=== PATIENT | female | born 1960 | race African-American/Black ===

== ENCOUNTER 2022-11-12 16:53 | Emergency (ER) | payer OTHER ==
--- OUTSIDE RECORDS SUMMARY | 2022-11-12 17:03 | XMS REPORT | Continuity of Care Document ---
:1960 Author Organization [facility] t Address [address] [place] [address] Care Team Providers Name Role Phone ANNI YIN Primary Care Physician Unavailable RAQUEL MARIE Attending Clinician Unavailable Gen Stephen Attending Clinician Raquel Marie MD Attending Clinician Arvin Norris Attending Clinician Unavailable ESEQUIEL MOREIRA Attending Clinician Unavailable ELISE CARDENAS Attending Clinician Unavailable Elise Patten Attending Clinician JOSÉ ANTONIO GUTIERREZ Attending Clinician Unavailable LATANYA STARKS Attending Clinician Unavailable USMAN FRAZIER Attending Clinician Unavailable HALIE PADILLA Attending Clinician Unavailable NANCY MENDIOLA M.D. Attending Clinician Unavailable ANNI YIN M.D. Attending Clinician Unavailable TAN FAIR Attending Clinician Unavailable Keenan Harrison Attending Clinician Unavailable FAISAL MENESES Attending Clinician Unavailable BRADY CORBIN Attending Clinician Unavailable KEENAN RICKS Attending Clinician Unavailable LEFTY MO Attending Clinician Unavailable SAGAR MODI Attending Clinician Unavailable RAQUEL MARIE Admitting Clinician Unavailable Raquel Marie MD Admitting Clinician ELISE CARDENAS Admitting Clinician Unavailable ONI JOHNSON Admitting Clinician Unavailable DANY MORENO Admitting Clinician Unavail TE Dailey Admitting Clinician Unavailable MARIVEL IBANEZ Admitting Clinician Unavailable Payers Payer Name Policy Type Policy Number Effective Date Expiration Date S blank [employer] PPO [id number] 2017 2017 00:00:00 00:00:00 CIGNA II [id number] 2020 00:00:00 CIGNA OON [id number] 2021 00:00:00 CIGNA [id number] 2012 HMO/POS/OPEN 00:00:00 ACCESS Problems Condition Condition Condition Status Onset Resolution Last Treating Co mments Source Name Details Category Date Date Treatment Clinician Date Neuropathy Neuropathy Disease Active U nivers 8-23 ity of 00:00: [address] [facility] Obesity Obesity Disease Active Univers (BMI (BMI 8-22 ity of 30-39.9) 30-39.9) 00:00: [address] Difficulty Difficulty Disease Active U nivers with with 8-22 ity of speech speech 00:00: [address] TIA TIA Disease Active 2019-[address] [facility] (transient (transient 0-22 Cand[facility] kes ischemic ischemic 00:00: Medica l attack) attack) 00 Center Non-compac Non-compac Disease Recurre [facility] tion tion nce 3-09 [facility] cardiomyop cardiomyop 00:00: Me dical athy athy 00 Center Hypomagnes Hypomagnes Disease Active [facility] em[facility] emia 3 [facility] 00:[facility]: Medical 00 Center AICD AICD Disease Active [facility] discharge discharge 3 [facility] 00:00: Medical 00 Center Syncope, Syncope, Disease Active [facility] unspecifie unspecifie 307 [place] kes d syncope d syncope 00:00: Medi gokul type type 00 Center Acute Acute Disease Recurre [facility] ischemic ischemic nce 204 [facility] stroke stroke 00:00: Medical 00 Center Chronic Chronic Disease Recurre 2016-[address] [facility] combined combined nce 04-06 [facility] systolic systolic 00:00: Medica l and and 00 Center diastolic diastolic CHF CHF (congestiv (congestiv e heart e heart failure) failure) Paroxysmal Paroxysmal Disease Recurre 2016-[address] [facility] atrial atrial nce 04-06 [facility] fibrillati fibrillati 00:00: Me dical on on 00 Center Ventricula Ventricula Disease Recurre 2016-[address] [facility] r r nce 04-06 [facility] tachycardi tachycardi 00:00: Me dical a a Center Non-rheuma Non-rheuma Disease Recurre 2016-[address] tic mitral tic mitral nce 04-06 [facility] kes regurgitat regurgitat 00:00: Me dical ion ion 00 Center Thrombocyt Thrombocyt Disease Recurre 2016-[address] openia openia nce 03-24 [facility] 00:00: Medical 00 Center AICD AICD Disease Recurre [facility] (automatic (automatic nce 06-20 [facility] k[facility] cardiovert cardiovert 00:00: Me dical er/defibri er/defibri 00 Ce nter llator) llator) present present H/O H/O Disease Recurre [facility] laparoscop laparoscop nce 06-20 [facility] k[facility] ic ic 00:00: Medical adjustable adjustable 00 Ce nter gastric gastric banding banding Gastric Gastric Disease Recurre [facility] outflow outflow nce 06-20 [facility] obstructio obstructio 00:00: Me dical n n 00 Center Hypertensi Hypertensi Disease Recurre [facility] on on nce 06-20 [facility] 00:00: Medical 00 Center Malignant Malignant Problem Active 2020-04-15 Memoria essential essential 05:10:04 l hypertensi hypertensi He rmann on on Active Problem 04/15/2020 [facility] Mood Mood Problem Active [facility] disorder disorder Physic i due to due to ans known known physiologi physiologi gokul gokul condition condition Anxiety Anxiety Problem Active [facility] Physici ans Heart Heart Problem Active UT problem problem Physici ans Cognitive Cognitive Problem Active [facility] disorder disorder Physic i ans Shoulder Shoulder Problem Active UT pain, left pain, left Ph ysici ans Encounter Encounter Problem Active UT for for Physici gynecologi gynecologi an s gokul gokul examinatio examinatio n with n with Papanicola Papanicola ou smear ou smear of cervix of cervix Paroxysmal Paroxysma Problem Active 2020-04-15 Memoria tachycardi l 05:10:04 l a tachycardi Reggie n a Active Problem 04/15/2020 [facility] Vaginal Vaginal Problem Active UT discharge discharge Phys ici ans Bacterial Bacterial Problem Active UT vaginosis vaginosis Phys ici ans Other Other Problem Active 2020-04-15 Memor ia premature premature 05:10:04 l beats beats [place] Active Problem 04/15/2020 [facility] 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) Herm mamie drug drug therapy therapy Active Problem 04/15/2020 [facility] Chronic Chronic Problem Active 2020-04-15 Me moria systolic systolic 05:10:04 l heart heart [place] failure failure Active Problem 04/15/2020 [facility] Automatic Automatic Problem Active 2020-04-15 Memoria implantabl implantabl 05:10:04 l e e [place] cardiovert cardiovert er-defibri er-defibri llator in llator in situ situ Active Problem 04/15/2020 [facility] Dilated Dilated Problem Active 2020-04-15 Me moria cardiomyop cardiomyop 05:10:04 l athy athy [place] Active Problem 04/15/2020 [facility] No known No known Disease Unive rs active active ity of problems problems [place] [facility] Allergies, Adverse Reactions, Alerts Allergy Allergy Status Severity Reaction(s) Onset Inactive Treating Comm ents Source Name Type Date Date Clinician Penicill DA Active U Itching [facility] ins 07-05 00:00: 00 Unable DA Active U [facility] to 4-20 Assess 00:00: 00 Penicill Propensi Active Itching Unive rs in ty to 3-30 ity of adverse 00:00: [place] reaction 00 [facility] PENICILL DRUG Active ITCHING Univers IN INGREDI 3-30 ity of 00:00: [place] 00 [facility] PENICILL Allergy Active Low Rash [facility] INS 4-05 [facility] 00:00: Medical 00 Sells Penicill Propensi Active Rash [facility] ins ty to 4-05 [facility] adverse 00:00: Medical reaction 00 [facility] Penicill Allergy Active UT ins to drug Physici (finding ans ) NO KNOWN Drug Active Univers ALLERGIE Class ity of [facility] Social History Social Habit Start Date Stop Date Quantity Comments Source Exposure to Not sure University of SARS-CoV-2 (event) [facility] Gender identity Universit y [facility] Sexual orientation Univer sity [facility] History of Social 2022-11-06 2022-11-06 Univers ity of function 00:00:00 00:00:00 [facility] Alcohol intake 2021-10-14 2021-10-[address] [facility] Mario es 00:00:00 00:00:00 non-drinker of Medical nter alcohol (finding) Tobacco use and 2016-06-19 2016-06-[address] Candida kes exposure 00:00:00 00:00:00 tobacco non-user [facility] Sex Assigned At [address] [facility] Candida kes 00:00:00 00:00:00 [facility] Smoking Status Start Date Stop Date Source Tobacco smoking consumption Univ ersity [facility] Branch Never smoked tobacco [facility] Medications Ordered Filled Start Stop Current Ordering Indication Dosage Frequency Signature Comments Components Source Medication Medication Date Date Medication? Clinician (SIG) Name Name sulfur 2022- No [id number] 5mL 5 mL, Univ ers hexafluorid 11-06 Intravenou i ty of e microsphr 16:45: 16:45 s, ONCE, 1 [place] (LUMASON) 00 :00 dose, On Medica l injection 5 Wed Branch mL 11/06/22 at 1145, Routine
guardian family member approving Restricted medication : TRELL MOORE MARIEE Saline 2023-0 Yes [id number] 6mL 6 mL, Unive rs Bubble 8- Injection, ity of Study 16:39: SEE-INSTRU [place] 17 CTIONS, Medical Starting Branch on Fri11/06/22 at 1139, Until Discontinu ed, Routine carvediloL 3-0 Yes 25mg Take 1 Unive rs (COREG) 25 8-23 tablet by ity of mg tablet 14:40: mouth in [facility] [place] 10 the Medical morning Branch and 1 tablet in the evening. Take with meals. sacubitriL- 2023-0 Yes 1{tbl} Take 1 Un davida valsartan 8-23 tablet by ity o f 97-103 mg 14:40: mouth in [facility] [place] tablet 10 the Medical morning Branch and 1 tablet in the evening. apixaban 2022-0 Yes 5mg Take 1 Univers (ELIQUIS) 5 8-23 tablet by ity of mg tablet 14:40: mouth in [facility] [place] 10 the Medical morning Branch and 1 tablet in the evening. furosemide 3-0 Yes 40mg Take 1 Unive rs 40 mg 8-23 tablet by ity of tablet 14:40: mouth in [place] [address] the Medical morning. Branch atorvastati 2022-0 Yes 40mg Take 1 Univ ers n 40 mg 8-23 tablet by ity of tablet 14:40: mouth at [place] [address] bedtime. Medical Branch amiodarone 2022-0 Yes 200mg Take 1 Univ ers 200 mg 8-23 tablet by ity of tablet 14:40: mouth in [place] [address] the Medical morning. Branch pantoprazol 2022-0 Yes 40mg 40 mg, Univ ers e 8-23 Oral, ity of (PROTONIX) 14:00: DAILY, [place] EC tablet 00 First dose Medi gokul 40 mg on Fri Branch 11/06/22 at 0900, Until Discontinu ed, Routine amiodarone 2022-0 Yes 200mg 200 mg, Uni vers (PACERONE) 8-23 Oral, ity of tablet 200 14:00: DAILY, [place] mg 00 First dose Medical on Fri Branch 11/06/22 at 0900, Until Discontinu ed, Routine polyethylen 3-0 Yes 17g 17 g, Unive rs e glycol 8-23 Oral, ity of 3350 powder 03:15: DAILY, [place] 17 g 00 First dose Medical on [facility] 11/05/22 at 2215, Until Discontinu ed, Routine NaCl 0.9% 2022- Yes 1000mL at 75 Univ ers (NS) IV 11-06 08-25 mL/hr, IV ity of infusion 03:00: 02:59 Infusion, Jaciel as 1,000 mL 00 :00 CONTINUOUS Medic al , Starting Branch on Fri11/05/22 at 2200, Until [place] 11/07/22 at 2159, Routine apixaban Yes 5mg 5 mg, Univers (ELIQUIS) 11-06 Oral, BID, ity of tablet 5 mg 02:15: First dose [place] 00 on [facility] 11/05/22 at Branch 2115, Until Discontinu ed, Routine
Indicatio ns: Non-Valvul ar Atrial Fibrillati on atorvastati Yes 40mg 40 mg, Univ ers n (LIPITOR) 11-06 Oral, QHS, it y of tablet 40 02:00: First dose [place] mg 00 on [facility] 11/05/22 at Branch 2100, Until Discontinu ed, Routine acetaminoph Yes 500mg 500 mg, Un davida en 11-06 Oral, ity of (TYLENOL) 01:45: Q6HPRN, [place] tablet 500 23 Starting Medic al mg on [facility] 11/05/22 at 2045, Until Discontinu ed, Routine, Pain (scale 4-6), Pain (scale 1-3) labetaloL Yes 10mg 10 mg, Univer s (NORMODYNE) 11-06 Slow IV ity o f injection 01:39: Push, [place] 10 mg 58 [id number], 5 Medical doses, Branch Starting on Fri11/05/22 at 203, Until Discontinu ed, Routine, Hypertensi on SBP> 220 ketorolac 2022- No 15mg 15 mg, Unive rs (TORADOL) 11-05 Slow IV ity of injection 23:30: 22:35 Push, [place] 15 mg 00 :00 ONCE, 1 Medical dose, On Branch 11/05/22 at 1830, ADA ondansetron 0 2022- No 4mg 4 mg, Slow Univers (ZOFRAN 8-22 08-22 IV Push, ity of (PF)) 22:00: 20:58 ONCE, 1 [place] injection 4 00 :00 dose, On Medi gokul mg [facility] Branch 11/05/22 at 1700, AAD iopamidol 2022- No [id number] 100mL 100 mL, Univers (ISOVUE 11-05 Intravenou ity o f 370-500 mL) 20:47: 20:48 s, ONCE, 1 [place] injection 00 :00 dose, On Medica l 100 mL [facility] Branch 11/05/22 at 1600, Routine NaCl 0.9% Yes 5mL 5 mL, Slow Un davida (NS) 11-05 IV Push, ity of injection 5 20:26: PRN - SEE [place] mL 09 INSTRUCT Medical NS, Branch Starting on Fri11/05/22 at 1526, Until Discontinu ed, 10 mL sucralfate Yes 1g Take 1 [facility] (CARAFATE) 7-31 tablet (1 Luke s 1 gram 00:00: g total) Medical tablet 00 by mouth 4 Center (four) times daily as needed (Nausea). ondansetron Yes 4mg Take [address] (ZOFRAN-ODT 7-31 tablet (4 Mario es ) 4 MG 00:00: mg total) Medica l disintegrat 00 by mouth Cent er ing tablet every 8 (eight) hours as needed for Nausea. No known No Univers medications 3-30 ity of 18:08: [address] Branch Amiodarone Yes Usman 1 tablet M emoria HCl 1-30 Jalal l 05:10: Sridhar Amiodarone Yes Usman 1 tablet M emoria HCl 1-30 Jalal l 05:10: Sridhar Carvedilol 2019-03 Yes Usman 1 tablet M emoria 1-07 Jalal with food l 05:10: Sridhar Carvedilol 2019-03 Yes Usman 1 tablet M emoria 1-07 Jalal with food l 05:10: Sridhar metroNIDAZO metroNIDAZO 2019-03 Yes NANCY MENDIOLA Q0.5D TAKE 1 UT LE 500 MG LE 500 MG 1-06 M.D. TABLET Phy sici Oral Tablet Oral Tablet 00:00: TWICE ans 00 DAILY UNTIL FINISHED. carvedilol 2019-03 Yes 25mg Take [address] (COREG) 25 0-23 by mouth 2 Mario es MG tablet 11:56: (two) Medical 15 times Center daily with breakfast and dinner. sacubitril- 2019-03 Yes 1{tbl} Q.5D Take [address] valsartan 0-23 tablet by [facility] (ENTRESTO) 11:56: mouth 2 Medi gokul 49-51 mg 15 (two) Center Tab times daily . apixaban 2019-03 Yes 5mg Q.5D Take [address] (Eliquis) 5 0-23 by mouth 2 Candida kes mg Tab 11:56: (two) Medical tablet 15 times Center daily. amiodarone 2019-03 Yes 200mg QD Take [address] (PACERONE) 0-23 mg by [facility]ukes 200 MG 11:56: mouth Medical tablet 15 daily. Sells atorvastati 2019-03 Yes 40mg QD Take [address] n (LIPITOR) 0-23 by mouth Luke s 40 MG 11:56: daily. Medical tablet 15 Sells furosemide 2019-03 Yes 40mg QD Take [address] (LASIX) 40 0-23 by mouth Lukes MG tablet 11:56: daily. Medica l 15 Sells esomeprazol 2019-03 Yes 40mg QD Take [address] e (NexIUM) 0-23 capsule [facility] 40 MG 00:00: (40 mg Medical capsule 00 total) by Center mouth daily. Eliquis Yes Usman 1 tablet Yassine claire 7-24 Jalal l 04:10: Furosemide Yes Usman 1 tablet M emoria 724 Jalal l 04:10: Eliquis Yes Usman 1 tablet Yassine claire 7-24 Jalal l 04:10: Furosemide Yes Usman 1 tablet M emoria 7-24 Jalal l 04:10: QUEtiapine QUEtiapine 2013-03 Yes LI NIX 1 TAKE 1 UT Fumarate Fumarate 1-06 M.D. TABLET AT Ph ysici 100 MG Oral 100 MG Oral 00:00: BEDTIME. ans Tablet Tablet 00 FLUoxetine FLUoxetine 2014-0 Yes LI NIX 1 QD TAKE 1 UT HCl - 20 MG HCl - 20 MG 8-12 M.D. TABLET Physici Oral Tablet Oral Tablet 00:00: DAILY. ans 00 Aspirin 81 Aspirin 81 Yes UT TBEC TBEC Physici ans Lisinopril Lisinopril Yes UT 40 MG Oral 40 MG Oral Phy sici Tablet Tablet ans Ibuprofen Ibuprofen Yes UT CAPS CAPS Physici ans Carvedilol Carvedilol Yes UT TABS TABS Physici ans Vital Signs Vital Name Observation Time Observation Value Comments Source Systolic blood 2022-11-06 142 mm[Hg] [facility] 16:41:00 [facility] Diastolic blood 2022-11-06 82 mm[Hg] [place] o f pressure 16:41:00 [facility] Heart rate 2022-11-06 60 /min [facility] 16:41:00 [facility] Body temperature 2022-11-06 36.28 [place] [facility] 16:41:00 [facility] Respiratory rate 2022-11-06 16 /min [facility] 16:41:00 [facility] Oxygen saturation 2022-11-06 98 /min [facility] Arterial blood 16:41:00 [facility] by Pulse oximetry [place] Body height 2022-11-06 182.9 cm [facility] 01:25:00 [facility] Body weight 2022-11-06 122.471 kg [facility] 01:25:00 [facility] BMI 2022-11-06 36.62 kg/m2 [facility] 01:25:00 [facility] HEIGHT 2021-10-14 182.9 cm 16:01:00 WEIGHT 2021-10-14 118 kg 16:01:00 HEIGHT 2021-10-14 182.9 cm 16:01:00 WEIGHT 2021-10-14 118 kg 16:01:00 Systolic blood 2021-06-14 154 mm[Hg] University of pressure 02:40:39 [facility] Diastolic blood 2021-06-14 66 mm[Hg] University o f pressure 02:40:39 [facility] Heart rate 2021-06-14 64 /min [facility] 02:40:39 [facility] Respiratory rate 2021-06-14 17 /min [facility] 02:40:39 [facility] Oxygen saturation 2021-06-14 100 /min [facility] in Arterial blood 02:40:39 [facility] by Pulse oximetry [place] Body temperature 2021-06-13 36.89 [place] [facility] 22:56:00 [facility] Body height 2021-06-13 182.9 cm [facility] 22:56:00 [facility] Body weight 2021-06-13 117.935 kg [facility] 22:56:00 [facility] BMI 2021-06-13 35.26 kg/m2 [facility] 22:56:00 [facility] HEIGHT 2020-09-21 182.9 cm 10:25:00 WEIGHT 2020-09-21 113.399 kg 10:25:00 HEIGHT 2020-09-21 182.9 cm 10:25:00 WEIGHT 2020-09-21 113.399 kg 10:25:00 HEIGHT 2020-01-06 185.4 cm 17:17:00 WEIGHT 2020-01-06 113.399 kg 17:17:00 HEIGHT 2020-01-06 185.4 cm 17:17:00 WEIGHT 2020-01-06 113.399 kg 17:17:00 Systolic blood 2019-12-10 135 mm[Hg] [facility] 11:04:00 Position: Sitting Diastolic blood 2019-12-10 83 mm[Hg] [facility] pressure 11:04:00 Position: Sitting Body height 2019-12-10 72 [in_us] [facility] 11:04:00 Weight 2019-12-10 249.125 [lb_av] [facility] 11:04:00 Body mass index 2019-12-10 33.79 kg/m2 [facility] Physician s (BMI) [Ratio] 11:04:00 Body temperature 2019-12-10 96.1 [degF] Method: Oral [facility] Physicia ns 11:04:00 Heart Rate 2019-12-10 60 /min [facility] 11:04:00 Procedures Procedure Date / Time Performing Clinician Source Performed EKG-12 LEAD 2022-11-06 06:14:01 Gen Ching [facility] o f [facility] VITAMIN B12, LEVEL 2022-11-06 02:38:00 Tiffany Sood [facility] XR STROKE CHEST 1 VW 2022-11-05 21:15:47 Gen Ching [facility] CT STROKE ANGIOGRAM 2022-11-05 20:56:00 Gen Ching [facility] HEAD Medical Branch CT STROKE ANGIOGRAM 2022-11-05 20:56:00 Gen Ching [facility] NECK Medical Branch CT STROKE HEAD WO 2022-11-05 20:52:00 Gen Ching [facility] CONTRAST [facility] TROPONIN I 2022-11-05 20:32:00 Gen Ching [place] o f [facility] THYROID STIMULATING 2022-11-05 20:32:00 Tiffany Sood [facility] HORMONE [facility] BASIC METABOLIC PANEL 2022-11-05 20:32:00 Gen Ching [facility] (NA, K, CL, CO2, Medical Branch GLUCOSE, BUN, CREATININE, CA) LIPID PANEL 2022-11-05 20:32:00 Tiffany Sood [facility] ([id number])(TOTAL Medical Branch CHOLESTEROL, TRIGLYCERIDES, HDL) CBC WITHOUT DIFF 2022-11-05 20:32:00 Gen Ching [facility] GLYCOSYLATED HEMOGLOBIN 2022-11-05 20:32:00 Tiffany Sood [facility] (A1C) [facility] PROTHROMBIN TIME / INR 2022-11-05 20:32:00 Gen Ching [facility] ACTIVATED PARTIAL 2022-11-05 20:32:00 Gen Ching [facility] THRMPLAS IMELDA [facility] URINALYSIS 2022-11-05 20:32:00 Gen Ching [place] o [facility] POCT GLUCOSE(AGE 2022-11-05 20:30:00 Gen Ching Mis[place] [facility] >30DAYS) Medical Branch POCT GLUCOSE 2022-11-05 20:29:00 Gen Ching [place] o [facility] (AUTOMATED) [facility] CONSENT/REFUSAL FOR 2022-11-05 19:49:46 Doctor Unassigned, No Un [facility] DIAGNOSIS AND TREATMENT Name Medical Branch NOTICE OF PRIVACY 2021-06-13 22:51:31 Doctor Unassigned, No [facility] Name [facility] Branch CONSENT/REFUSAL FOR 2021-06-13 22:51:18 Doctor Unassigned, No [facility] Name Medical Branch . [facility] - Affirm VPIII 2019-12-10 00:00:00 [facility] P [facility]ysicians (BV Panel) Plan of Care Planned Activity Planned Date Details Comments Source Future Scheduled 2023-01-06 Lipid panel (procedure) [facility] Test 00:00:00 [code = 46022593] Medical Ce nter Future Scheduled 2022-11-15 Influenza Vaccine (#1) [facility] 00:00:00 [code = Influenza Vaccine Nc dical Center (#1)] Future Scheduled 2022-10-[address] [facility] Test 00:00:00 Counseling and Screening [facility] (12+) [code = Tobacco Cessation Counseling and Screening (12+)] Future Scheduled 2009-10-21 SHINGLES VACCINES ([address] [facility] Test 00:00:00 2) [code = SHINGLES [facility] VACCINES (1 of 2)] Future Scheduled 1980-10-21 Screening for malignant [facility] Test 00:00:00 neoplasm of cervix Medical C enter (procedure) [code = 694358326] Future Scheduled 1978-10-21 DTAP/TDAP/TD VACCINES ([address] [facility] Test 00:00:00 - Tdap) [code = Medical Cent er DTAP/TDAP/TD VACCINES (1 - Tdap)] Future Scheduled 1974-10-[address] [facility] Test 00:00:00 virus screening Medical Cent er (procedure) [code = 197105363] Future Scheduled 1960-04-23 COVID-19 VACCINE (#1) [facility] 00:00:00 [code = COVID-19 VACCINE Med ica Center (#1)] Future Scheduled 1959 Screening for malignant [facility] Test 00:00:00 neoplasm of breast Medical C enter (procedure) [code = 722519268] Future Scheduled 1960 CT Colonography (combo) [facility] Test 00:00:00 [code = CT Colonography [facility] (combo)] Future Scheduled 1959 Screening for malignant [facility] Test 00:00:00 neoplasm of colon Medical Ce nter (procedure) [code = 990540431] Future Scheduled 1959 Screening for malignant [facility] Test 00:00:00 neoplasm of colon Medical Ce nter (procedure) [code = 519013380] Future Scheduled 1959 Screening for malignant [facility] Test 00:00:00 neoplasm of colon Medical Ce nter (procedure) [code = 694855180] Future Scheduled 1959 Screening for malignant [facility] Test 00:00:00 neoplasm of colon Medical Ce nter (procedure) [code = 329583303] Future Scheduled 1960 Sigmoidoscopy [code = [facility] 00:00:00 Sigmoidoscopy] Medical Cente r Encounters Start End Encounter Admission Attending Care Care Encounter Source Date/Time Date/Time Type Type Clinicians Facility Department ID 2022-11-12 Outpatient [id number] Memoria 16:57:21 [id number] [place] [id number] 2022-07-17 Outpatient [facility] [id number] [place] 16:10:25 [id number] [facility] 2022-07-17 Outpatient [facility] [id number] [place] 15:49:19 [id number] [facility] 2021-11-21 Outpatient [facility] [id number] [place] 08:37:13 [id number] [facility] 2021-11-14 Outpatient [facility] [id number] [place] 08:45:17 [id number] [facility] 2021-10-18 Outpatient [facility] [id number] [place] 10:23:00 [id number] [facility] 2021-10-05 Outpatient [facility] [id number] [place] 09:53:40 [id number] [facility] 2021-08-09 Outpatient [facility] [id number] [place] 16:49:40 [id number] [facility] 2021-06-29 Outpatient [facility] [id number] [place] 10:31:42 [id number] [facility] 2020-10-29 Outpatient [id number] Memoria 12:28:58 [id number] Sridhar [id number] 2018-07-29 Outpatient [facility] 7504 [facility] 18:15:55 2022-11-05 2022-11-06 Outpatient X IONA [facility] JEANNIE [id number] Univers 15:06:00 14:30:00 RAQUEL itsurya [facility] 2022-11-05 2022-11-06 Emergency Gen Chinganthony STARKE [id number] Univers 15:06:00 14:30:00 Raquel [facility] 4.2.7[facility]2.686 Jaciel as [id number] [address] 2022-07-05 2022-07-05 Outpatient Elective Myrna [facility] [id number] [facility] 07:00:00 11:04:00 [place] 54 2021-10-14 2021-10-14 Emergency ER [facility] Emergency [id number] [facility] 16:04:00 22:46:00 ESEQUIEL 2021-06-13 2021-06-13 Emergency X [facility] ERT [id number] Univers 17:59:00 22:06:00 ELISE barba [facility] 2021-06-13 2021-06-13 Emergency [facility] [id number] Univers 17:59:00 22:06:00 Elise HERNANDEZ [id number] i ty [facility] 4.2.7.2.686 [facility] [id number] [place] [id number] [place] 2020-10-29 2020-10-29 Emergency ER SLE Emergency [id number] [facility] 12:28:00 12:28:00 2020-09-21 2020-09-21 Emergency ER SLE Emergency [id number] [facility] 10:19:00 10:19:00 2020-04-14 2020-04-14 Outpatient [facility] [id number] eClinic 09:19:00 09:19:00 n [facility]rhythmia [facility] 2020-03-16 2020-03-16 Outpatient ROBB FRAZIER CAR 7505 [facility] 09:19:00 19:20:00 USMAN 2020-01-21 2020-01-21 Outpatient [facility] [id number] eClinic 11:13:00 11:13:00 n Arrhythmia alW orks [facility] 2020-01-06 2020-01-06 Emergency ER [facility] Emergency [id number] SLE 17:11:00 17:11:00 2019-12-10 2019-12-10 Appointmen SAMAN MENDIOLA [facility] [id number] [place] 10:45:00 10:45:00 t; NANCY MENDIOLA M.D. [facility] Royal CRUZ M.D. [facility] 2019-04-13 2019-04-13 Appointmen SAMAN YIN [facility] [id number] [place] 12:00:00 12:00:00 [facility] HUT[facility] 2018-10-05 2018-10-05 Outpatient [facility] [id number] eClinic 15:53:00 15:53:00 n Arrhythmia [facility]W [facility] 2017-10-06 2017-10-06 Outpatient [facility] [id number] eClinic 17:08:00 17:08:00 n Arrhythmia alW orks [facility] 2017-08-04 2017-08-04 Outpatient AWILDA Harrison [id number] [facility] 08:22:00 08:22:00 Keenan Adams 2017-06-10 2017-06-10 Outpatient HEIDE MENESES [facility] [id number] SLE 00:00:00 00:00:00 BIJI Results Test Description Test Time Test Comments Results Result Comments Source THYROID STIMULATING HORMONE 2022-11-06 02:38:27 Test Item Value Reference Range Interpretation Comme nts TSH (test code = 6551148183) 3.75 See_Comment Biotin has been reported to cause a negative bias , interpret results relativ e to patient's use of biotin. [Aut omated message] The system Clustrix generated this result transmit andreas reference range: 0.45 - 4 .70 mIU/L. The reference range was not used to interpret this result as normal/abnormal . Lab Interpretation (test code = Normal 07643-2) [facility] Hem[facility] (A1C)2022-11-06 02:37:17 Test Item Value Reference Range Interpretation Comments HGB A1C (test code = 5.3 % 4.0-5.7 4548-4) MEHNAZ (test code = MEHNAZ) Reference RangesNormal: <5.7%Prediabetes: 5.7 - 6.4%Diabetes: > 6.5% Lab Interpretation (test Normal code = 11132-4) [facility]landsFasting Lipd Panel (90742)(TOTAL CHOLESTEROL, TRIGLYCERIDES, HDL)2022-11-06 02:01:08 Test Item Value Reference Range Interpretation Comments CHOL (test code = 7930331041) 170 mg/dL 120-200 HDL (test code = 9751344652) 91 mg/dL >=50 HDLC RATIO (test code = 7055033209) 1.9 <=4.5 TRIG (test code = 4586467204) 87 mg/dL 30-170 LDL CHOL (test code = 35392-8) 62 mg/dL <=160 VLDL (test code = 9079758914) 17 mg/dL 5-60 Lab Interpretation (test code = Normal 20039-3) [facility]landsTroponin I - Code [id number] 21:04:05 Test Item Value Reference Range Interpretation Comments TROPONIN I (test code = 0.009 ng/mL <=0.034 0178946830) MEHNAZ (test code = MEHNAZ) Reference (Normal) Range (defined by the 99th percentile reference limit): <= 0.034 ng/mL Note: Cardiac troponin begins to rise 3-4 hours after the onset of ischemia. Repeat in 4-6 hours if the sample was drawn within 3-4 hours of the onset of the symptom and found normal. Diagnosis of myocardial injury is made with acute changes in cTn concentrations with at least one serial sample above the 99th percentile upper reference limit (URL), taken together with the patient's clinical presentation. Biotin has been reported to cause a negative bias, interpret results relative to patient's use of biotin. Lab Interpretation Normal (test code = 65440-2) [facility]landsaPTT - Code [id number] 20:53:06 Test Item Value Reference Range Interpretation Comments APTT Patient (test 32 See_Comment [Automat ed code = 3173-2) message] The system which generated this result transmitted reference range : 23 - 38 Seconds . The reference range was not used to interpr et this result as normal/abnormal . MEHNAZ (test code = MEHNAZ) The [facility] patient population mean normal value for aPTT is 30 seconds. Lab Interpretation Normal (test code = 60254-0) [facility] Met[facility] Panel (NA, K, CL, CO2, Glucose, BUN, Creatinine, CA) - Code [id number] 20:52:05 Test Item Value Reference Range Interpretation Comments NA (test code = 139 mmol/L 135-145 0334929086) K (test code = 4.5 mmol/L 3.5-5.0 3980271617) CL (test code = 106 mmol/L 98-108 4983296970) CO2 TOTAL (test code 25 mmol/L 23-31 = 0249452649) AGAP (test code = 8 2-16 9703689060) BUN (test code = 12 mg/dL 7-23 7126934819) GLUCOSE (test code = 91 mg/dL 70-110 0686080929) CREATININE (test code 1.03 mg/dL 0.50-1.04 = 0251951674) CALCIUM (test code = 9.6 mg/dL 8.6-10.6 3955482611) eGFR (test code = 54.1 mL/min/1.73m2 5673940316) MEHNAZ (test code = MEHNAZ) Association of Glomerular Filtration Rate (GFR) and Staging of Kidney Disease* + + +- +| GFR (mL/min/1.73 m2) ?| With Kidney Damage ?| ?Without Kidney Damage+ ------+ ----+ ------+| ?>90 ?| ?Stage one ?| ? Normal ?+ -+ + -+| ?60-89 ?| ?Stage two ?| ? Decreased GFR ? + + +- +| ?30-59 ?| ?Stage three ?| ? Stage three ? + + +- +| ?15-29 ?| ?Stage four ? | ? Stage four ?+ -+ + -+| ?<15 (or dialysis) ? ?| ?Stage five ? | ? Stage five ?+ -+ + -+ *Each stage assumes the associated GFR level has been in effect for at least three months. ?Stages 1 to 5, with or without kidney disease, indicate chronic kidney disease. Notes: Determination of stages one and two (with eGFR >59mL/min/1.73 m2) requires estimation of kidney damage for at least three months as defined by structural or functional abnormalities of the kidney, manifested by either:Pathological abnormalities or Markers of kidney damage (including abnormalities in the composition of the blood or urine or abnormalities in imaging tests). [facility]landsProthrombin Time / INR - Code [id number] 20:51:04 Test Item Value Reference Range Interpretation Comments PROTIME PATIENT (test 14.2 See_Comment [Auto mated message] code = 5964-2) The system Pushfor generated this result transmitted ref erence range: 12.0 - 1 4.7 Seconds. The re ference range was not u sed to interpret this result as normal/abnor mal. INR (test code = 6301-6) 1.1 Nor mal INR <1.1; Warfarin Therap eutic range 2.0 to 3. 0 or 2.5 to 3.5, dep ending upon the indica tions. Lab Interpretation (test Normal code = 78141-9) [facility] without Diff - Code [id number] 20:43:24 Test Item Value Reference Range Interpretation Comments WBC (test code = 4.59 See_Comment [Automated message] The 3490-2) system which apprupt nerated this result tra nsmitted reference range : 4.30 - 11.10 10*3/?L. The reference range was not used to interpr et this result as normal/abnormal . RBC (test code = 4.25 See_Comment [Automated message] The 789-8) system which apprupt nerated this result tra nsmitted reference range : 3.93 - 5.25 10*6/?L. T he reference range was not used to interpr et this result as normal/abnormal . HGB (test code = 12.9 g/dL 11.6-15.0 718-7) HCT (test code = 39.3 % 35.7-45.2 4544-3) MCH (test code = 30.4 pg 25.9-32.8 785-6) MCV (test code = 92.5 fL 80.6-95.5 787-2) MCHC (test code = 32.8 g/dL 31.6-35.1 786-4) PLT (test code = 192 See_Comment [Automated message] The 777-3) system which ge nerated this result tra nsmitted reference range : 166 - 358 10*3/?L. Th e reference range was not used to interpr et this result as normal/abnormal . MPV (test code = 10.7 fL 9.5-12.9 69389-9) RDW-CV (test code = 14.3 % 12.0-15.5 788-0) RDW-SD (test code = 48.0 fL 39.0-49.9 61725-1) NRBC x10^3 (test See_Comment [Automated message] The code = 0638138504) system [facility] generated this result tra nsmitted reference range : 10*3/?L. The reference r ras was not used to int erpret this result as normal/abnormal . NRBC/100 WBC (test 0.0 See_Comment [Automat ed message] The code = 7998755289) system [facility] generated this result tra nsmitted reference range : 0.0 - 10.0 /100 WBCs. The reference range was not used to interpr et this result as normal/abnormal . IPF % (test code = 2255007778) General acute hospital GLUCOSE (AUTOMATED)2022-11-05 20:35:51 Test Item Value Reference Range Interpretation Comments POCT GLU (test code = 0310041795) 86 mg/dL 70-110 Lab Interpretation (test code = Normal 59198-0) General acute hospital Glucose (Age >30 Days) - Code Stroke 2022-11-05 20:30:00 Test Item Value Reference Range Interpretation Comments POCT Glu (age>30days) (test code = 86 mg/dL 70-110 3342) Lab Interpretation (test code = Normal 25250-9) [facility]landsCT, [id number] 18:48:00Unlisted Reason for Exam - Click Yes and Enter Reason Below->NoWill this procedure require oral contrast?->No [facility] : 1960 Sex: FFINAL REPORT CLINICAL HISTORY: Diarrhea FINDINGS: Multiple axial images of the abdomen and pelvis were performed after the uncomplicated administration of IV contrast. Oral contrast was not given. This exam was performed according to our departmental dose-optimization program, which includes automated exposure control, adjustment of the mA and/or kV according to patient size and/or use of the iterative reconstruction technique. Comparison:06/19/2016 Lower chest: Clear lungs.No pleural effusion or pneumothorax. Partially visualized ICD leads. Liver: No significant findings.Gallbladder and biliary tree: Previous cholecystectomy. Spleen: No significant findings. Adrenal Glands: No significant findings. Kidneys and ureters: No significant findings. Stomach and Duodenum: Interval removal of gastric banding hardware. Pancreas: No significant findings. Bowel: No bowel obstruction or pneumatosis intestinalis. No focal inflammatory changes related to the bowel. Appendix: Normal. Bladder: No significant findings. Major vascular structures: No significant findings. Reproductive organs: Previous hysterectomy. Other: No free air, fluid or adenopathy Skeleton: No acute bony abnormality. IMPRESSION: No acute abnormality. Signed: Nicole [facility] Verified Date/Time: 10/14/2021 18:48:21 SARS-COV2/RT-PCR ([facility])2021-10-14 18:34:01 Test Item Value Reference Range Interpretation Comments SARS-COV2/RT-PCR Negative Negative The SARS-Co V-2 target (test code = nucleic acids a re not 0664306) detected in thi s specimen. Negative result s do not preclude SARS-C oV-2 infection and s hould not be used as the yelena e basis for patient managem ent decisions. Nega tive results must be combine d with clinical observ ations, patient history , and epidemiological information. A false negativ e result may occur if a spec imen is improperly rebecca ected, transported or handled. This SARS CoV-2 test is a rapid, real-time RT-PC R test intended for th e qualitative detection of nu cleic acid from SARS-CoV-2 in a nasopharyngeal swab specimen collected from individuals suspected of CO VID-19 by their healthcar e provider. This test has been authorized by FDA under an EUA for use by authorized laboratories. This test is only authorized for the duration of the declaration that circumstances exist justifying the authorization of emergency use of in vitro diagnostic tests for detection and/or diagnosis of COVID-19 under Section 564(b)(1) of the Federal Food, Drug and Cosmetic Act, 21 U.S.C. 360bbb-3(b)(1), unless the authorization is terminated or revoked sooner. Fact Sheet for Healthcare Providers: https://www.[employer]/Documents/Xpert%20Xpress%20SARS%20CoV-2/Fact%20Sheets/302-2262%57GIEN-QUE-8%20 HEALTHCARE%20PROVIDERS%20FACT%20SHEET.pdf Fact Sheet for Healthcare Patients: https://www.[employer]/Documents/Xpert%20Xp ress%20SARS%20CoV-2/Fact%20Sheets/302-9851%41WYAL-XKG-8%20PATIENT%20FACT%20SHEET .pdfB-TYPE NATRIURETIC FACTOR (BNP)2021-10-14 17:42:00 Test Item Value Reference Range Interpretation Comments B-TYPE NATRIURETIC PEPTIDE (BEAKER) < pg/mL 0-100 (test code = 700) Supervisor Model Making ID - MOHIGH SENSITIVITY TROPONIN [id number] 17:42:00 Test Item Value Reference Range Interpretation Comments HIGH SENSITIVITY < pg/ml See_Comment [Automated message] TROPONIN I (test code = The system which 4253394) generated this result transmitted ref erence range: <=17. Th e reference range was not used to interpr et this result as normal/abnormal . Supervisor Model Making ID - Kurtise BLUE LINE TRIMMER STAT High Sensitivity Troponin-I results should be used in conjunctionwith other diagnostic information such as ECG, clinical observations and information, and patient symptoms to aid in the diagnosis of IA.PROTHROMBIN TIME/[id number] 17:37:26 Test Item Value Reference Range Interpretation Comments PROTIME (BEAKER) 17.1 seconds 11.9-14.2 H (test code = 759) INR (BEAKER) (test 1.41 See_Comment [Automat ed message] code = 370) The system whic h generated this result transmitted ref erence range: <=5.90. The reference range was not used to int erpret this result as normal/abnormal . RECOMMENDED COUMADIN/WARFARIN INR THERAPY RANGESSTANDARD DOSE: 2.0 - 3.0 Includes: PROPHYLAXIS for venous thrombosis, systemic embolization; TREATMENT for venous thrombosis and/or pulmonary embolus.HIGH RISK: Target INR is 2.5-3.5 for patients with mechanical heart valves.COMPREHENSIVE METABOLIC PANEL 2021-10-14 17:37:03 Test Item Value Reference Range Interpretation Comments TOTAL PROTEIN 7.0 gm/dL 6.0-8.3 (BEAKER) (test code = 770) ALBUMIN (BEAKER) 4.0 g/dL 3.5-5.0 (test code = 1145) ALKALINE 88 U/L 40-150 PHOSPHATASE (BEAKER) (test code = 346) BILIRUBIN TOTAL 0.4 mg/dL 0.2-1.2 (BEAKER) (test code = 377) SODIUM (BEAKER) 143 meq/L 136-145 (test code = 381) POTASSIUM (BEAKER) 3.7 meq/L 3.5-5.1 (test code = 379) CHLORIDE (BEAKER) 110 meq/L 98-107 H (test code = 382) CO2 (BEAKER) (test 24 meq/L 22-29 code = 355) BLOOD UREA 12 mg/dL 7-21 NITROGEN (BEAKER) (test code = 354) CREATININE 1.22 mg/dL 0.57-1.25 (BEAKER) (test code = 358) GLUCOSE RANDOM 91 mg/dL 70-105 (BEAKER) (test code = 652) CALCIUM (BEAKER) 9.3 mg/dL 8.4-10.2 (test code = 697) AST (SGOT) 34 U/L 5-34 (BEAKER) (test code = 353) ALT (SGPT) 33 U/L 6-55 (BEAKER) (test code = 347) EGFR (BEAKER) 50 Interpretatio n of eGFR (test code = 1092) mL/min/1.[address] age Description sq m Result G1 Martha l or high >=90 G2 Mildly decreased 60-89 G3a Mildl y to moderately 45-5 9 G3b Moderately to s everely 30-44 G4 Severl y decreased 15-29 G5 Kidney failure <15Reported eGF R is based on the CKD-EPI 2020 equation that d oes not use a race coefficientEsti mated GFR is not as accur ate as Creatinine Tana jessie in predicting glom erular filtration rate . Estimated GFR is not appl icable for dialysis patien ts Supervisor Model Making ID - [id number] 17:37:03 Test Item Value Reference Range Interpretation Comments MAGNESIUM (BEAKER) (test code = 1.7 mg/dL 1.6-2.6 627) Supervisor Model Making ID - [id number] 17:37:03 Test Item Value Reference Range Interpretation Comments PHOSPHORUS (BEAKER) (test code = 3.5 mg/dL 2.3-4.7 604) Supervisor Model Making ID - [id number] 17:37:03 Test Item Value Reference Range Interpretation Comments LIPASE (BEAKER) (test code = 749) 36 U/L 8-78 Supervisor Model Making ID - MOCBC W/PLT COUNT & AUTO [id number] 17:16:39 Test Item Value Reference Range Interpretation Comments WHITE BLOOD CELL COUNT (BEAKER) 3.1 K/ L 3.5-10.5 L (test code = 775) RED BLOOD CELL COUNT (BEAKER) 3.96 M/ L 3.93-5.22 (test code = 761) HEMOGLOBIN (BEAKER) (test code = 12.0 GM/DL 11.2-15.7 410) HEMATOCRIT (BEAKER) (test code = 37.2 % 34.1-44.9 411) MEAN CORPUSCULAR VOLUME (BEAKER) 93.9 fL 79.4-94.8 (test code = 753) MEAN CORPUSCULAR HEMOGLOBIN 30.3 pg 25.6-32.2 (BEAKER) (test code = 751) MEAN CORPUSCULAR HEMOGLOBIN CONC 32.3 GM/DL 32.2-35.5 (BEAKER) (test code = 752) RED CELL DISTRIBUTION WIDTH 13.9 % 11.7-14.4 (BEAKER) (test code = 412) PLATELET COUNT (BEAKER) (test 163 K/CU MM 150-450 code = 756) MEAN PLATELET VOLUME (BEAKER) 11.5 fL 9.4-12.3 (test code = 754) NUCLEATED RED BLOOD CELLS 0 /100 WBC 0-0 (BEAKER) (test code = 413) NEUTROPHILS RELATIVE PERCENT 45 % (BEAKER) (test code = 429) LYMPHOCYTES RELATIVE PERCENT 35 % (BEAKER) (test code = 430) MONOCYTES RELATIVE PERCENT 15 % (BEAKER) (test code = 431) EOSINOPHILS RELATIVE PERCENT 5 % (BEAKER) (test code = 432) BASOPHILS RELATIVE PERCENT 0 % (BEAKER) (test code = 437) NEUTROPHILS ABSOLUTE COUNT 1.39 K/ L 1.56-6.13 L (BEAKER) (test code = 670) LYMPHOCYTES ABSOLUTE COUNT 1.09 K/ L 1.18-3.74 L (BEAKER) (test code = 414) MONOCYTES ABSOLUTE COUNT (BEAKER) 0.45 K/ L 0.24-0.36 H (test code = 415) EOSINOPHILS ABSOLUTE COUNT 0.14 K/ L 0.04-0.36 (BEAKER) (test code = 416) BASOPHILS ABSOLUTE COUNT (BEAKER) 0.01 K/ L 0.01-0.08 (test code = 417) IMMATURE GRANULOCYTES-RELATIVE 0 % 0-1 PERCENT (BEAKER) (test code = 2801) RAD, CHEST, 1 VIEW, NON [id number] 17:05:00Reason for exam:- >DIARRHEAReason for exam:->EMESISReason for exam:->HEADACHEReason for exam:->NEUROLOGIC PROBLEMReason for exam:->CHEST PAINReason for exam:- >GENERALIZED WEAKNESS, NOTASSOCIATED WITH EXTREMITIESShould this be performed at the bedside?->Yes [facility] 1960 Sex: FFINAL REPORT HISTORY: Neurologic problem, diarrhea, vomiting COMPARISON: 10/29/2020 FINDINGS: The lungs are clear. No pleural effusions or pneumothorax. The heart shadow is normal in size. Left subclavian transvenous cardiac pacing hardware remains in place, with leads in theregion of the right atrium and right ventricle. The thoracic aorta is mildly tortuous. No acute skeletal abnormalities are identified. IMPRESSION: No evidence of acute cardiopulmonary disease. Signed: Dakota Cantrell MDReport Verified Date/Time: 10/14/2021 17:05:46 RAD, CHEST, 1 VIEW, NON [id number] 15:22:00Reason for exam:->coughShould this be performed at the bedside?->Yes [facility] : 1960 Sex: FFINAL REPORT TECHNIQUE: Frontal view of the chest. INDICATION: cough. COMPARISON: Chest radiograph from 09/21/2020. FINDINGS: LINES/TUBES: A left chest pacer/ICD has leads over the right atrium and ventricle. LUNGS: The lungs are well inflated and clear. No consolidation or pulmonaryedema. PLEURA: No pneumothorax or significant pleural effusion. HEART AND MEDIASTINUM: The cardiac silhouette is normal in size. SOFT TISSUES AND BONES: Unremarkable. IMPRESSION:No acute intrathoracic abnormality. Signed: Yaneth Yen MDReport Verified Date/Time: 10/29/2020 15:22:01 Reading Location: [facility] C013Y CT Body Reading Room COMPREHENSIVE METABOLIC [id number] 14:03:00 Test Item Value Reference Range Interpretation Comments TOTAL PROTEIN 7.5 gm/dL 6.0-8.3 (BEAKER) (test code = 770) ALBUMIN (BEAKER) 4.2 g/dL 3.5-5.0 (test code = 1145) ALKALINE PHOSPHATASE 98 U/L 40-150 (BEAKER) (test code = 346) BILIRUBIN TOTAL 1.0 mg/dL 0.2-1.2 (BEAKER) (test code = 377) SODIUM (BEAKER) (test 141 meq/L 136-145 code = 381) POTASSIUM (BEAKER) 3.6 meq/L 3.5-5.1 (test code = 379) CHLORIDE (BEAKER) 103 meq/L 98-107 (test code = 382) CO2 (BEAKER) (test 28 meq/L 22-29 code = 355) BLOOD UREA NITROGEN 9 mg/dL 7-21 (BEAKER) (test code = 354) CREATININE (BEAKER) 0.97 mg/dL 0.57-1.25 (test code = 358) GLUCOSE RANDOM 96 mg/dL 70-105 (BEAKER) (test code = 652) CALCIUM (BEAKER) 9.4 mg/dL 8.4-10.2 (test code = 697) AST (SGOT) (BEAKER) 25 U/L 5-34 (test code = 353) ALT (SGPT) (BEAKER) 18 U/L 6-55 (test code = 347) EGFR (BEAKER) (test 71 mL/min/1.73 ESTIMA ANDREAS GFR IS code = 1092) sq m NOT ACCURATE CREATININE CLEARANCE IN PREDICTING GLOMERULAR FILTRATION RATE . ESTIMATED GFR I S NOT APPLICABLE FOR DIALYSIS PATIEN TS. Supervisor Model Making ID - RASHEED MPROTHROMBIN [id number] 13:57:00 Test Item Value Reference Range Interpretation Comments PROTIME (BEAKER) 16.6 seconds 11.9-14.2 H (test code = 759) INR (BEAKER) (test 1.37 See_Comment [Automat ed message] code = 370) The system [employer] generated this result transmitted ref erence range: <=5.90. The reference range was not used to int erpret this result as normal/abnormal . RECOMMENDED COUMADIN/WARFARIN INR THERAPY RANGESSTANDARD DOSE: 2.0 - 3.0 Includes: PROPHYLAXIS for venous thrombosis, systemic embolization; TREATMENT for venous thrombosis and/or pulmonary embolus.HIGH RISK: Target INR is 2.5-3.5 for patients with mechanical heart valves.[id number] 13:57:00 Test Item Value Reference Range Interpretation Comments PARTIAL THROMBOPLASTIN TIME 34.7 seconds 22.5-36.0 (BEAKER) (test code = 760) CBC W/PLT COUNT & AUTO [id number] 13:33:00 Test Item Value Reference Range Interpretation Comments WHITE BLOOD CELL COUNT (BEAKER) 3.6 K/ L 3.5-10.5 (test code = 775) RED BLOOD CELL COUNT (BEAKER) 4.29 M/ L 3.93-5.22 (test code = 761) HEMOGLOBIN (BEAKER) (test code = 12.8 GM/DL 11.2-15.7 410) HEMATOCRIT (BEAKER) (test code = 39.4 % 34.1-44.9 411) MEAN CORPUSCULAR VOLUME (BEAKER) 91.8 fL 79.4-94.8 (test code = 753) MEAN CORPUSCULAR HEMOGLOBIN 29.8 pg 25.6-32.2 (BEAKER) (test code = 751) MEAN CORPUSCULAR HEMOGLOBIN CONC 32.5 GM/DL 32.2-35.5 (BEAKER) (test code = 752) RED CELL DISTRIBUTION WIDTH 13.5 % 11.7-14.4 (BEAKER) (test code = 412) PLATELET COUNT (BEAKER) (test 159 K/CU MM 150-450 code = 756) MEAN PLATELET VOLUME (BEAKER) 10.7 fL 9.4-12.3 (test code = 754) NUCLEATED RED BLOOD CELLS 0 /100 WBC 0-0 (BEAKER) (test code = 413) NEUTROPHILS RELATIVE PERCENT 61 % (BEAKER) (test code = 429) LYMPHOCYTES RELATIVE PERCENT 24 % (BEAKER) (test code = 430) MONOCYTES RELATIVE PERCENT 10 % (BEAKER) (test code = 431) EOSINOPHILS RELATIVE PERCENT 5 % (BEAKER) (test code = 432) BASOPHILS RELATIVE PERCENT 1 % (BEAKER) (test code = 437) NEUTROPHILS ABSOLUTE COUNT 2.19 K/ L 1.56-6.13 (BEAKER) (test code = 670) LYMPHOCYTES ABSOLUTE COUNT 0.86 K/ L 1.18-3.74 L (BEAKER) (test code = 414) MONOCYTES ABSOLUTE COUNT (BEAKER) 0.36 K/ L 0.24-0.36 (test code = 415) EOSINOPHILS ABSOLUTE COUNT 0.16 K/ L 0.04-0.36 (BEAKER) (test code = 416) BASOPHILS ABSOLUTE COUNT (BEAKER) 0.02 K/ L 0.01-0.08 (test code = 417) IMMATURE GRANULOCYTES-RELATIVE 0 % 0-1 PERCENT (BEAKER) (test code = 2801) POCT-GLUCOSE [id number] 13:20:00 Test Item Value Reference Range Interpretation Comments POC-GLUCOSE METER 92 mg/dL 70-110 : TESTED A T [facility] 6720 (BEAKER) (test code = RICHARD MARCUM PA, 1538) [address]: Supervisor Model Making/Techni deangelo ID = [id number] for Christel marjanDigna CT, BRAIN/STROKE [id number] 12:53:00 [facility] : 1960 Sex: FFINAL REPORT CT, BRAIN/STROKE PROTOCOL CLINICAL INDICATION: Cerebral hemorrhage suspected COMPARISON: 09/21/2020 TECHNIQUE: Noncontrast axial CT imaging of the brain and skull. DOSE REDUCTION: Dose modulation, iterative reconstruction, and/or weight-based adjustment of the mA/kV was utilized to reduce the radiation dose to as low as reasonably achievable. FINDINGS:No intracranial hemorrhage, midline shift or mass effect. Midline structures are normally developed. Mild chronic microvascular ischemic changes of the periventricular and subcortical white matter are present. No hydrocephalus. Orbits are within normal limits. No obstructive paranasal sinus disease. IMPRESSION: No acuteintracranial findings Findings discussed with ED staff by Dr. Holm at time of this dictation. Ifthere is persistent clinical concern for intracranial pathology, MR examination is recommended for further characterization. Signed: Wanda Holm MDReport Verified Date/Time: 10/29/2020 12:53:13 Reading Location: [address] Neuro Reading Room Electronically signed by: Ousmane DAVIS 10/29/2020 12:53 PMCT, BRAIN, WITHOUT [id number] 13:04:00Unlisted Reason for Exam - Click Yes and Enter Reason Below->No [facility] : 1960 Sex: FFINAL REPORT CT, BRAIN, WITHOUT CONTRAST INDICATION: Head trauma, minor, normal mental status (Age 19-64y) TECHNIQUE: Noncontrast axial imaging was obtained from the vertex to the skull base. Axial images were reconstructed using a bone algorithm. DOSE REDUCTION: Dose modulation, iterative reconstruction, and/or weight-based adjustment of the mA/kV was utilized to reduce the radiation dose to as low as reasonably achievable. COMPARISON: CT 01/06/2020 FINDINGS: Intracranial: No intracranial hemorrhage or abnormal extra- axial collection. No evidence of acute territorial infarct. No mass effect. No hydrocephalus. Osseous structures: No fracture. No suspicious lesion. Paranasal sinuses and mastoid air cells: No evidence of sinusitis. Mastoids are clear. Orbital contents: Globes are intact. IMPRESSION: No acute intracranial hemorrhage. If there is persistent clinical concern for intracranial pathology, MR examination is recommended for further characterization. Signed: Jennifer Knapp MDReport Verified Date/Time: 09/21/2020 13:04:25 RAD, CHEST, 1 VIEW, NON DEPT 2020-09-21 12:20:00Reason for exam:->FALLReason for exam:->CHEST PAINShould this be performed at the bedside?->Yes [facility] : 1960 Sex: FFINAL REPORT CLINICAL HISTORY: FALLCHEST PAIN TECHNIQUE: 1 view of the chest. COMPARISON: 03/27/2019 IMPRESSION: There are no focal infiltrates or effusions. A pacemaker is again seen without cardiomegaly. Signed: Winnie Abraham MDReport Verified Date/Time: 09/21/2020 12:20:57 Reading Location: [facility] Radiology Reading Room Electronically signed by: WINNIE ABRAHAM M.D. on 10/2020 12:20 PMHIGH SENSITIVITY TROPONIN [id number] 11:52:00 Test Item Value Reference Range Interpretation Comments HIGH SENSITIVITY < pg/ml See_Comment [Automated message] TROPONIN I (test code = The system which [id number]) generated this result transmitted ref erence range: <=17. Th e reference range was not used to interpr et this result as normal/abnormal . Supervisor Model Making ID - MAR CThe BLUE LINE TRIMMER STAT High Sensitivity Troponin-I results should be used in conjunction with other diagnostic information such as ECG, clinical observations and information, and patientsymptoms to aid in the diagnosis of IA. BASIC METABOLIC [id number] 11:44:00 Test Item Value Reference Range Interpretation Comments SODIUM (BEAKER) 143 meq/L 136-145 (test code = 381) POTASSIUM (BEAKER) 4.0 meq/L 3.5-5.1 (test code = 379) CHLORIDE (BEAKER) 107 meq/L 98-107 (test code = 382) CO2 (BEAKER) (test 25 meq/L 22-29 code = 355) BLOOD UREA NITROGEN 11 mg/dL 7-21 (BEAKER) (test code = 354) CREATININE (BEAKER) 0.82 mg/dL 0.57-1.25 (test code = 358) GLUCOSE RANDOM 95 mg/dL 70-105 (BEAKER) (test code = 652) CALCIUM (BEAKER) 8.9 mg/dL 8.4-10.2 (test code = 697) EGFR (BEAKER) (test 86 mL/min/1.73 ESTIMA ANDREAS GFR IS code = 1092) sq m NOT ACCURATE CREATININE CLEARANCE IN PREDICTING GLOMERULAR FILTRATION RATE . ESTIMATED GFR I S NOT APPLICABLE FOR DIALYSIS PATIEN TS. Supervisor Model Making ID - ANN CCBC W/PLT COUNT & AUTO [id number] 11:30:00 Test Item Value Reference Range Interpretation Comments WHITE BLOOD CELL COUNT (BEAKER) 4.1 K/ L 3.5-10.5 (test code = 775) RED BLOOD CELL COUNT (BEAKER) 4.02 M/ L 3.93-5.22 (test code = 761) HEMOGLOBIN (BEAKER) (test code = 12.5 GM/DL 11.2-15.7 410) HEMATOCRIT (BEAKER) (test code = 37.2 % 34.1-44.9 411) MEAN CORPUSCULAR VOLUME (BEAKER) 92.5 fL 79.4-94.8 (test code = 753) MEAN CORPUSCULAR HEMOGLOBIN 31.1 pg 25.6-32.2 (BEAKER) (test code = 751) MEAN CORPUSCULAR HEMOGLOBIN CONC 33.6 GM/DL 32.2-35.5 (BEAKER) (test code = 752) RED CELL DISTRIBUTION WIDTH 14.0 % 11.7-14.4 (BEAKER) (test code = 412) PLATELET COUNT (BEAKER) (test 168 K/CU MM 150-450 code = 756) MEAN PLATELET VOLUME (BEAKER) 10.8 fL 9.4-12.3 (test code = 754) NUCLEATED RED BLOOD CELLS 0 /100 WBC 0-0 (BEAKER) (test code = 413) NEUTROPHILS RELATIVE PERCENT 72 % (BEAKER) (test code = 429) LYMPHOCYTES RELATIVE PERCENT 19 % (BEAKER) (test code = 430) MONOCYTES RELATIVE PERCENT 8 % (BEAKER) (test code = 431) EOSINOPHILS RELATIVE PERCENT 1 % (BEAKER) (test code = 432) BASOPHILS RELATIVE PERCENT 1 % (BEAKER) (test code = 437) NEUTROPHILS ABSOLUTE COUNT 2.91 K/ L 1.56-6.13 (BEAKER) (test code = 670) LYMPHOCYTES ABSOLUTE COUNT 0.75 K/ L 1.18-3.74 L (BEAKER) (test code = 414) MONOCYTES ABSOLUTE COUNT (BEAKER) 0.31 K/ L 0.24-0.36 (test code = 415) EOSINOPHILS ABSOLUTE COUNT 0.05 K/ L 0.04-0.36 (BEAKER) (test code = 416) BASOPHILS ABSOLUTE COUNT (BEAKER) 0.02 K/ L 0.01-0.08 (test code = 417) IMMATURE GRANULOCYTES-RELATIVE 0 % 0-1 PERCENT (BEAKER) (test code = 2801) HEMOGLOBIN [id number] 09:44:00 Test Item Value Reference Range Interpretation Comments HEMOGLOBIN A1C (BEAKER) (test code = 5.1 % 4.3-6.1 368) POCT-GLUCOSE [id number] 07:51:00 Test Item Value Reference Range Interpretation Comments POC-GLUCOSE METER 79 mg/dL 70-110 : TESTED A T [facility] [address] (MICHAEL) (test code = [place], 1538) [address]: Supervisor Model Making/Techni deangelo ID = [id number] for Giuliana er (V), Saskia SARS-COV2/RT-PCR ([facility])2020-01-07 07:48:00 Test Item Value Reference Range Interpretation Comments SARS-COV2/RT-PCR (test Negative Not Detected, Negative, code = 6748225) See external report for linked test SARS-COV-2 PERFORMING LAB [facility] (test code = 4680385) Negative result for this test determines that SARS-CoV-2 RNA was not present in the specimen above the Limit of Detection (LOD). However, Negative results do not preclude SARS-CoV-2 infection and should not be used as the sole basis for treatment or patient management decisions. Negative results must be combined with clinical observations, patient history, and epidemiological information. A false negative result may occur if a specimen is improperly collected, transported or handled. A false negative result should be considered if patient's recent exposures or clinical presentation indicate that COVID-19 (SARS-CoV-2) is likely and diagnostic tests for other causes of illness are negative. Re-testing should be considered in cases of suspected false negatives.The limit of detection for this assay is 800 copies/mL.This SARS CoV-2 test is a real-time RT-PCR test intended for the qualitative detection of nucleic acid from SARS-CoV-2 in a nasopharyngeal swab specimen collected from individuals suspected of COVID-19 by their healthcare provider.This test has not been Food and Drug Administration (FDA) cleared or approved. This is a modified version of an approved Emergency Use Authorization (EUA) and is in the process of review by the FDA. Once authorized by the FDA, the issued EUA will be effective until the declaration that circumstances exist justifying the authorization of the emergency use ofin vitro diagnostic tests for detection and/or diagnosis of COVID-19 is terminated under Section 564(b)(2) of the Act or the EUA is revoked under Section 564(g) of the Act.Fact Sheet for Healthcare Prov iders:https://www.[employer]/sites/default/files/product/documents/Fact_Sheet_HC _Krqcrqzje_Jauz_DVIK-UyN-9.pdfFact Sheet for Healthcare Patients:https://www.[employer]/sites/default/files/product/docume nts/Fsgw_Aosio_Mydbwfrm_Egjf_MSOA-FfA-9.pdfPerforming Laboratory:[facility].[place], [place] [address]JBMQI METABOLIC PANEL 2020-01-07 04:53:00 Test Item Value Reference Range Interpretation Comments SODIUM (BEAKER) 144 meq/L 136-145 (test code = 381) POTASSIUM (BEAKER) 3.2 meq/L 3.5-5.1 L Specimen slightly (test code = 379) hemolyzed CHLORIDE (BEAKER) 113 meq/L 98-107 H (test code = 382) CO2 (BEAKER) (test 24 meq/L 22-29 code = 355) BLOOD UREA NITROGEN 13 mg/dL 7-21 (BEAKER) (test code = 354) CREATININE (BEAKER) 0.78 mg/dL 0.57-1.25 Specimen slightly (test code = 358) hemolyzed GLUCOSE RANDOM 69 mg/dL 70-105 L (BEAKER) (test code = 652) CALCIUM (BEAKER) 8.0 mg/dL 8.4-10.2 L (test code = 697) EGFR (BEAKER) (test 91 mL/min/1.73 ESTIMA ANDREAS GFR IS code = 1092) sq m NOT ACCURATE CREATININE CLEARANCE IN PREDICTING GLOMERULAR FILTRATION RATE . ESTIMATED GFR I S NOT APPLICABLE FOR DIALYSIS PATIEN TS. Supervisor Model Making ID - EDASILIPID [id number] 04:53:00 Test Item Value Reference Range Interpretation Comments TRIGLYCERIDES (BEAKER) 40 mg/dL Speci men slightly (test code = 540) hemolyzed CHOLESTEROL (BEAKER) 130 mg/dL Specime n slightly (test code = 631) hemolyzed HDL CHOLESTEROL (BEAKER) 57 mg/dL (test code = 976) LDL CHOLESTEROL 65 mg/dL CALCULATED (BEAKER) (test code = 633) Triglyceride Reference Range: Low Risk <150 Borderline 150-199 High Risk 200- 499 Very High Risk >=500Cholesterol Reference Range: Low Risk <200 Borderline 200-239 High Risk >240HDL Cholesterol Reference Range: Low Risk >=60 High Risk <40LDL Cholesterol Reference Range: Optimal <100 Near Optimal 100-129 Borderline 130-159 High 160-189 Very High >=190 Supervisor Model Making ID - EDASICBC W/PLT COUNT & AUTO [id number] 04:38:00 Test Item Value Reference Range Interpretation Comments WHITE BLOOD CELL COUNT (BEAKER) 3.4 K/ L 3.5-10.5 L (test code = 775) RED BLOOD CELL COUNT (BEAKER) 3.84 M/ L 3.93-5.22 L (test code = 761) HEMOGLOBIN (BEAKER) (test code = 11.3 GM/DL 11.2-15.7 410) HEMATOCRIT (BEAKER) (test code = 36.1 % 34.1-44.9 411) MEAN CORPUSCULAR VOLUME (BEAKER) 94.0 fL 79.4-94.8 (test code = 753) MEAN CORPUSCULAR HEMOGLOBIN 29.4 pg 25.6-32.2 (BEAKER) (test code = 751) MEAN CORPUSCULAR HEMOGLOBIN CONC 31.3 GM/DL 32.2-35.5 L (BEAKER) (test code = 752) RED CELL DISTRIBUTION WIDTH 14.1 % 11.7-14.4 (BEAKER) (test code = 412) PLATELET COUNT (BEAKER) (test 153 K/CU MM 150-450 code = 756) MEAN PLATELET VOLUME (BEAKER) 11.4 fL 9.4-12.3 (test code = 754) NUCLEATED RED BLOOD CELLS 0 /100 WBC 0-0 (BEAKER) (test code = 413) NEUTROPHILS RELATIVE PERCENT 46 % (BEAKER) (test code = 429) LYMPHOCYTES RELATIVE PERCENT 39 % (BEAKER) (test code = 430) MONOCYTES RELATIVE PERCENT 10 % (BEAKER) (test code = 431) EOSINOPHILS RELATIVE PERCENT 5 % (BEAKER) (test code = 432) BASOPHILS RELATIVE PERCENT 1 % (BEAKER) (test code = 437) NEUTROPHILS ABSOLUTE COUNT 1.57 K/ L 1.56-6.13 (BEAKER) (test code = 670) LYMPHOCYTES ABSOLUTE COUNT 1.32 K/ L 1.18-3.74 (BEAKER) (test code = 414) MONOCYTES ABSOLUTE COUNT (BEAKER) 0.35 K/ L 0.24-0.36 (test code = 415) EOSINOPHILS ABSOLUTE COUNT 0.16 K/ L 0.04-0.36 (BEAKER) (test code = 416) BASOPHILS ABSOLUTE COUNT (BEAKER) 0.02 K/ L 0.01-0.08 (test code = 417) IMMATURE GRANULOCYTES-RELATIVE 0 % 0-1 PERCENT (BEAKER) (test code = 2801) TROPONIN [id number] 19:29:00 Test Item Value Reference Range Interpretation Comments TROPONIN I (BEAKER) (test code = 397) < ng/mL 0.00-0.03 Troponin I (TnI) levels must be interpreted in the context of the presenting symptoms and the clinical findings. Elevated TnI levels indicate myocardial damage, but are not specific for ischemic heart disease. Elevated TnI levels are seen in patients with other cardiac conditions (including myocarditis and congestive heart failure), and slight TnI elevations occur in patients with other conditions, including sepsis, renal failure, acidosis, acute neurological disease, and persistent tachyarrhythmia.Supervisor Model Making ID - BSCOMPREHENSIVE METABOLIC [id number] 19:22:00 Test Item Value Reference Range Interpretation Comments TOTAL PROTEIN 7.0 gm/dL 6.0-8.3 (BEAKER) (test code = 770) ALBUMIN (BEAKER) 4.0 g/dL 3.5-5.0 (test code = 1145) ALKALINE PHOSPHATASE 86 U/L 40-150 (BEAKER) (test code = 346) BILIRUBIN TOTAL 0.5 mg/dL 0.2-1.2 (BEAKER) (test code = 377) SODIUM (BEAKER) (test 145 meq/L 136-145 code = 381) POTASSIUM (BEAKER) 3.8 meq/L 3.5-5.1 (test code = 379) CHLORIDE (BEAKER) 111 meq/L 98-107 H (test code = 382) CO2 (BEAKER) (test 27 meq/L 22-29 code = 355) BLOOD UREA NITROGEN 12 mg/dL 7-21 (BEAKER) (test code = 354) CREATININE (BEAKER) 0.96 mg/dL 0.57-1.25 (test code = 358) GLUCOSE RANDOM 81 mg/dL 70-105 (BEAKER) (test code = 652) CALCIUM (BEAKER) 8.6 mg/dL 8.4-10.2 (test code = 697) AST (SGOT) (BEAKER) 19 U/L 5-34 (test code = 353) ALT (SGPT) (BEAKER) 14 U/L 6-55 (test code = 347) EGFR (BEAKER) (test 72 mL/min/1.73 ESTIMA ANDREAS GFR IS code = 1092) sq m NOT ACCURATE CREATININE CLEARANCE IN PREDICTING GLOMERULAR FILTRATION RATE . ESTIMATED GFR I S NOT APPLICABLE FOR DIALYSIS PATIEN TS. Supervisor Model Making ID - [id number] 19:16:00 Test Item Value Reference Range Interpretation Comments PROTIME (BEAKER) (test code = 15.6 seconds 11.9-14.2 H 759) INR (BEAKER) (test code = 370) 1.28 <=5.90 PARTIAL THROMBOPLASTIN TIME 26.9 seconds 22.5-36.0 (BEAKER) (test code = 760) Effective 08/12/2018: PT Reference Range ChangeNew: 11.9-14.2 Previous: 11.7- 14.7RECOMMENDED COUMADIN/WARFARIN INR THERAPY RANGESSTANDARD DOSE: 2.0-3.0 Includes: PROPHYLAXIS for venous thrombosis, systemic embolization; TREATMENT for venous thrombosis and/or pulmonary embolus.HIGH RISK: Target INR is 2.5-3.5 for patients wiht mechanical heart valves.CT, CTANGIO [id number] 19:14:00 Unlisted Reason for Exam - Click Yes and Enter Reason Below->YesUnlisted Reason for Exam->numbness to tongue and neck pain [facility] : 1960 Sex: FFINAL REPORT CLINICAL HISTORY: Unlisted Reason for ExamNEUROLOGIC PROBLEMNECK PAIN TECHNIQUE: Contiguous contrast-enhanced axial images through the neck followed by axial images through the head with coronal and sagittal reformations to assess the arterial circulation. 3-D reconstructions were not available at time of interpretation. This exam was performed according to the departmental dose optimization program which includes automated exposure control, adjustment of the mA and/or kV according to the patient size, and/or use of an iterative reconstruction technique. Stenosis evaluation reported in compliance with NASCET criteria. COMPARISON: Same day noncontrast CT head, CTA to 08/03/2017 FINDINGS: CTA head:Please note that CTA is inherently insensitive in evaluating the cavernous and skullbase portions of the internal carotid arteries because of adjacent bone and venous opacification. No major branch vessel occlusion or high-grade focal stenosis. Diminutive left vertebral artery. There is no evidence of intracranial aneurysm. The major intradural venous sinuses are patent.CTA neck:Great vessel origins: No occlusion or high-grade stenosis. Carotid arteries: No occlusion or high-grade stenosis. Vertebral arteries: No occlusion or high-grade stenosis. Left vertebral arteryis diminutive along the entirety of its course. No fracture or suspicious osseous lesion. 1.2 cm left thyroid lobe nodule, for which no further imaging is recommended. Visualized lung apices are clear.IMPRESSION:No proximal branch arterial occlusion or high-grade focal stenosis within the head and neck. Signed: Yolanda Knapp MDReport Verified Date/Time: 01/06/2020 19:14:10 CT, CAROTID, [id number] 19:14:00Reason for exam:->NEUROLOGIC PROBLEMReason for exam:->NECK PAINIs the patient ?->NoWhat is the patient's sedation requirement?->No Sedation [facility] : 1960 Sex: FFINAL REPORT CLINICAL HISTORY: Unlisted Reason for ExamNEUROLOGIC PROBLEMNECK PAIN TECHNIQUE: Contiguous contrast-enhanced axial images through the neck followed by axial images through the head with coronal and sagittal reformations to assess the arterial circulation. 3-D reconstructions were not available at time of interpretation. This exam was performed according to the departmental dose optimization program which includes automated exposure control, adjustment of the mA and/or kV according to the patient size, and/or use of an iterative reconstruction technique. Stenosis evaluation reported in compliance with NASCET criteria. COMPARISON: Same day noncontrast CT head, CTA to 08/03/2017 FINDINGS: CTA head:Please note that CTA is inherently insensitive in evaluating the cavernous and skullbase portions of the internal carotid arteries because of adjacent bone and venous opacification. No major branch vessel occlusion or high-grade focal stenosis. Diminutive left vertebral artery. There is no evidence of intracranial aneurysm. The major intradural venous sinuses are patent.CTA neck:Great vessel origins: No occlusion or high-grade stenosis. Carotid arteries: No occlusion or high-grade stenosis. Vertebral arteries: No occlusion or high-grade stenosis. Left vertebral arteryis diminutive along the entirety of its course. No fracture or suspicious osseous lesion. 1.2 cm left thyroid lobe nodule, for which no further imaging is recommended. Visualized lung apices are clear.IMPRESSION:No proximal branch arterial occlusion or high-grade focal stenosis within the head and neck. Signed: Yolanda Knapp Verified Date/Time: 01/06/2020 19:14:10 CBC W/PLT COUNT & AUTO [id number] 19:07:00 Test Item Value Reference Range Interpretation Comments WHITE BLOOD CELL COUNT (BEAKER) 3.9 K/ L 3.5-10.5 (test code = 775) RED BLOOD CELL COUNT (BEAKER) 3.91 M/ L 3.93-5.22 L (test code = 761) HEMOGLOBIN (BEAKER) (test code = 11.5 GM/DL 11.2-15.7 410) HEMATOCRIT (BEAKER) (test code = 36.9 % 34.1-44.9 411) MEAN CORPUSCULAR VOLUME (BEAKER) 94.4 fL 79.4-94.8 (test code = 753) MEAN CORPUSCULAR HEMOGLOBIN 29.4 pg 25.6-32.2 (BEAKER) (test code = 751) MEAN CORPUSCULAR HEMOGLOBIN CONC 31.2 GM/DL 32.2-35.5 L (BEAKER) (test code = 752) RED CELL DISTRIBUTION WIDTH 14.2 % 11.7-14.4 (BEAKER) (test code = 412) PLATELET COUNT (BEAKER) (test 160 K/CU MM 150-450 code = 756) MEAN PLATELET VOLUME (BEAKER) 11.4 fL 9.4-12.3 (test code = 754) NUCLEATED RED BLOOD CELLS 0 /100 WBC 0-0 (BEAKER) (test code = 413) NEUTROPHILS RELATIVE PERCENT 52 % (BEAKER) (test code = 429) LYMPHOCYTES RELATIVE PERCENT 33 % (BEAKER) (test code = 430) MONOCYTES RELATIVE PERCENT 11 % (BEAKER) (test code = 431) EOSINOPHILS RELATIVE PERCENT 4 % (BEAKER) (test code = 432) BASOPHILS RELATIVE PERCENT 1 % (BEAKER) (test code = 437) NEUTROPHILS ABSOLUTE COUNT 2.01 K/ L 1.56-6.13 (BEAKER) (test code = 670) LYMPHOCYTES ABSOLUTE COUNT 1.28 K/ L 1.18-3.74 (BEAKER) (test code = 414) MONOCYTES ABSOLUTE COUNT (BEAKER) 0.41 K/ L 0.24-0.36 H (test code = 415) EOSINOPHILS ABSOLUTE COUNT 0.15 K/ L 0.04-0.36 (BEAKER) (test code = 416) BASOPHILS ABSOLUTE COUNT (BEAKER) 0.03 K/ L 0.01-0.08 (test code = 417) IMMATURE GRANULOCYTES-RELATIVE 0 % 0-1 PERCENT (BEAKER) (test code = 2801) CT, BRAIN/STROKE [id number] 19:00:00Reason for exam:->NEUROLOGIC PROBLEMReason for exam:->NECK PAINReason for exam:->left facial droopIs the patient ?->NoWhat is the patient's sedation requirement?->No SedationCH[facility] : 1960 Sex: FFINAL REPORT CT, BRAIN/STROKE PROTOCOL INDICATION: TIA, initial examNEUROLOGIC PROBLEMNECK PAINleft facial droop TECHNIQUE: Noncontrast axial imaging was obtained from the vertex tothe skull base. Axial images were reconstructed using a bone algorithm. DOSE REDUCTION: Dose modulation, iterative reconstruction, and/or weight-based adjustment of the mA/kV was utilized to reduce theradiation dose to as low as reasonably achievable. COMPARISON: CT 04/06/2018 FINDINGS: Intracranial: No intracranial hemorrhage or abnormal extra- axial collection. No evidence of acute territorial infarct. No mass effect. No hydrocephalus. Osseous structures: No fracture. No suspicious lesion. Paranasal sinuses and mastoid air cells: No evidence of sinusitis. Mastoids are clear. Orbital contents: Globes are intact. IMPRESSION: No acute intracranial hemorrhage or CT evidence of territorial infarct. Ifthere is persistent clinical concern for intracranial pathology, MR examination is recommended for further characterization. The findings were discussed with Dr. HALIE PADILLA on 01/06/2020 7:00 PM. Signed: Yolanda Knapp Verified Date/Time: 01/06/2020 19:00:23 . [facility] - Affirm VPIII (BV Panel)2019-12-10 00:00:00 Test Item Value Reference Range Interpretation Comments Case (test code = Click ImageLink button A Case) for report. [facility][U] XRAY SHOULDER MIN 2 VWS LEFT [id number] 11:58:00Images acquired, not reported on this accession number.[facility] PhysiciansRAD, SHOULDER, COMPLETE (MIN 2 VIEWS), [id number] 18:13:00Reason for exam:->FALLReason for exam:->SHOULDER PAINFINAL REPORT Chest, two views, cervical spine, left shoulder and facial bones. HISTORY: Fall, shoulder pain. COMPARISON STUDY: Chest x-ray dated September 02, 2017. FINDINGS: The cardiac silhouette is unremarkable. A pacer device is seen. No focal opacity, pleural effusion or pneumothorax is seen. Degenerative changes are noted. Three views of the patient's facial bones demonstrate noevidence of fracture or malalignment. The visualized paranasal sinuses are well aerated. Six views of the cervical spine demonstrate no evidence of fracture, malalignment or soft tissue swelling. Mild to moderate degenerative changes are seen. Three views of the left shoulder demonstrate no evidence of fracture, malalignment or effusion. IMPRESSION: No acute abnormality seen. Signed: Pola Peng MDReport Verified Date/Time: 03/27/2019 18:13:03 Reading Location: [address] Ortho Consult ReadingRoom RAD, CHEST, 2 [id number] 18:13:00Reason for exam:->FALLReason for exam:->SHOULDER PAINFINAL REPORT Chest, two views, cervical spine, left shoulder and facial bones. HISTORY: Fall, shoulder pain. COMPARISON STUDY: Chest x-ray dated September 02, 2017. FINDINGS: The cardiac silhouette is unremarkable. A pacer device is seen. No focal opacity, pleural effusion or pneumothorax is seen. Degenerative changes are noted. Three views of the patient's facial bones demonstrate noevidence of fracture or malalignment. The visualized paranasal sinuses are well aerated. Six views of the cervical spine demonstrate no evidence of fracture, malalignment or soft tissue swelling. Mild to moderate degenerative changes are seen. Three views of the left shoulder demonstrate no evidence of fracture, malalignment or effusion. IMPRESSION: No acute abnormality seen. Signed: Pola Pengort Verified Date/Time: 03/27/2019 18:13:03 Reading Location: [address] Ortho Consult ReadingRoom RAD, FACIAL BONES, MIN 3 [id number] 18:13:00Reason for exam:- >FALLReason for exam:->SHOULDER PAINFINAL REPORT Chest, two views, cervical spine, left shoulder and facial bones. HISTORY: Fall, shoulder pain. COMPARISON STUDY: Chest x-ray dated September 02, 2017. FINDINGS: The cardiac silhouette is unremarkable. A pacer device is seen. No focal opacity, pleural effusion or pneumothorax is seen. Degenerative changes are noted. Three views of the patient's facial bones demonstrate noevidence of fracture or malalignment. The visualized paranasal sinuses are well aerated. Six views of the cervical spine demonstrate no evidence of fracture, malalignment or soft tissue swelling. Mild to moderate degenerative changes are seen. Three views of the left shoulder demonstrate no evidence of fracture, malalignment or effusion. IMPRESSION: No acute abnormality seen. Signed: Pola Peng MDReport Verified Date/Time: 03/27/2019 18:13:03 Reading Location: [address] Ortho Consult ReadingRoom RAD, SPINE, CERVICAL, COMPLETE (MIN 4 VIEWS)2019-03-27 18:13:00Reason for exam:->FALLReason for exam:->SHOULDER PAINFINAL REPORT Chest, two views, cervical spine, left shoulder and facial bones. H ISTORY: Fall, shoulder pain. COMPARISON STUDY: Chest x-ray dated September 02, 2017. FINDINGS: The cardiac silhouette is unremarkable. A pacer device is seen. No focal opacity, pleural effusion or pneumothorax is seen. Degenerative changes are noted. Three views of the patient's facial bones demonstrate noevidence of fracture or malalignment. The visualized paranasal sinuses are well aerated. Six views of the cervical spine demonstrate no evidence of fracture, malalignment or soft tissue swelling. Mild to moderate degenerative changes are seen. Three views of the left shoulder demonstrate no evidence of fracture, malalignment or effusion. IMPRESSION: No acute abnormality seen. Signed: Pola Peng Verified Date/Time: 03/27/2019 18:13:03 Reading Location: [facility] C013X Ortho Consult ReadingRoom RAD, FOOT, MIN 3 VIEWS, [id number] 21:20:00Reason for exam:->FOOT PAINFINAL REPORT CLINICAL HISTORY: Right foot pain 3 views of the right foot are submitted without comparison. There is no acute fracture or malalignment. No radiopaque foreign body ispresent. There is a small plantar calcaneal spur. Signed: Nicole Vick MDReport Verified Date/Time:10/31/2018 21:20:11 Reading Location: [address] CT, BRAIN, WITHOUT [id number] 13:04:00Reason for exam:->headacheIs the patient ?->UnknownWhat is the patient's sedation requirement?->No SedationFINAL REPORT CT, BRAIN, WITHOUT CONTRAST CLINICAL INDICATION: headacheheadache COMPARISON: September 02, 2017 TECHNIQUE: Noncontrast axial CT imaging of the brain and skull. DOSE REDUCTION: Dose modulation, iterative reconstruction, and/or weight-based adjustment of the mA/kV was utiliz ed to reduce the radiation dose to as low as reasonably achievable. FINDINGS:Cerebral parenchyma: Unremarkable.Midline structures: Normally positioned.Cerebellum and brainstem: Normal.Ventricles: Normal volume.Extra- axial spaces: Unremarkable. Calvarium and skull base: Intact.Paranasal sinuses and mastoid air cells: Visible chambers are clear.Orbital contents: Included portions unremarkable. Additional findings: None. IMPRESSION: No acute intracranial abnormality. If there is persistent clinical concern for intracranial pathology, MR examination is recommended for further characterization. Signed: JR Hari, Kenny Guillen Verified Date/Time: 04/06/2018 13:04:11 Reading Location: [address] Neuro Reading Room TROPONIN [id number] 10:38:00 Test Item Value Reference Range Interpretation Comments TROPONIN I (BEAKER) (test code = 397) < ng/mL 0.00-0.03 Troponin I (TnI) levels must be interpreted in the context of the presenting symptoms and the clinical findings. Elevated TnI levels indicate myocardial damage, but are not specific for ischemic heart disease. Elevated TnI levels are seen in patients with other cardiac conditions (including myocarditis and congestive heart failure), and slight TnI elevations occur in patients with other conditions, including sepsis, renal failure, acidosis, acute neurological disease, and persistent tachyarrhythmia.[id number] 10:30:00 Test Item Value Reference Range Interpretation Comments MAGNESIUM (BEAKER) 2.0 mg/dL 1.6-2.6 Specimen slightly (test code = 627) hemolyzed BASIC METABOLIC [id number] 10:30:00 Test Item Value Reference Range Interpretation Comments SODIUM (BEAKER) 140 meq/L 136-145 (test code = 381) POTASSIUM (BEAKER) 4.4 meq/L 3.5-5.1 Specimen slightly (test code = 379) hemolyzed CHLORIDE (BEAKER) 107 meq/L 98-107 (test code = 382) CO2 (BEAKER) (test 24 meq/L 22-29 code = 355) BLOOD UREA NITROGEN 8 mg/dL 7-21 (BEAKER) (test code = 354) CREATININE (BEAKER) 0.77 mg/dL 0.57-1.25 Specimen slightly (test code = 358) hemolyzed GLUCOSE RANDOM 86 mg/dL 70-105 (BEAKER) (test code = 652) CALCIUM (BEAKER) 9.3 mg/dL 8.4-10.2 (test code = 697) EGFR (BEAKER) (test 94 mL/min/1.73 ESTIMA ANDREAS GFR IS code = 1092) sq m NOT ACCURATE CREATININE CLEARANCE IN PREDICTING GLOMERULAR FILTRATION RATE . ESTIMATED GFR I S NOT APPLICABLE FOR DIALYSIS PATIEN RAD, CHEST, 1 VIEW, NON [id number] 10:25:00Reason for exam:- >CEREBROVASCULAR ACCIDENTIs the patient ?->NoFINAL REPORT Chest one view INDICATION: Cerebrovascular accident. COMPARISON: 05/21/2017 IMPRESSION: Stable mild basilar opacities suggest atelectasis with possible trace pleural effusions. There is mild central pulmonary vascular prominence without peripheral edema. The cardiac silhouette is enlarged. A left chest ICD is again noted. There is stable biapical scarring. The bones appear demineralized. Signed: Lisy Craft MDReport Verified Date/Time: 09/02/2017 10:25:06 Reading Location: [facility] Radiology Reading Room ALYSIS W/ [id number] 10:22:00 Test Item Value Reference Range Interpretation Comments COLOR (BEAKER) (test code Light Yellow = 470) CLARITY (BEAKER) (test Clear code = 469) SPECIFIC GRAVITY UA 1.002 1.001-1.035 (BEAKER) (test code = 468) PH UA (BEAKER) (test code 7.0 5.0-8.0 = 467) PROTEIN UA (BEAKER) (test Negative Negative code = 464) GLUCOSE UA (BEAKER) (test Negative Negative code = 365) KETONES UA (BEAKER) (test Negative Negative code = 371) BILIRUBIN UA (BEAKER) Negative Negative (test code = 462) BLOOD UA (BEAKER) (test Negative Negative code = 461) NITRITE UA (BEAKER) (test Negative Negative code = 465) LEUKOCYTE ESTERASE UA Negative Negative (BEAKER) (test code = 466) UROBILINOGEN UA (BEAKER) 0.2 mg/dL 0.2-1.0 (test code = 463) RBC UA (BEAKER) (test code < /HPF = 519) WBC UA (BEAKER) (test code < /HPF = 520) SQUAMOUS EPITHELIAL 1 /HPF (BEAKER) (test code = 516) SOURCE(BEAKER) (test code Urine, Clean Catch = 2795) [id number] 10:22:00 Test Item Value Reference Range Interpretation Comments PROTIME (BEAKER) (test code = 18.0 seconds 11.7-14.7 H 759) INR (BEAKER) (test code = 370) 1.5 <=5.9 PARTIAL THROMBOPLASTIN TIME 39.5 seconds 22.5-36.0 H (BEAKER) (test code = 760) RECOMMENDED COUMADIN/WARFARIN INR THERAPY RANGESSTANDARD DOSE: 2.0 - 3.0 Includes: PROPHYLAXIS for venous thrombosis, systemic embolization; TREATMENT for venous thrombosis and/or pulmonary embolus.HIGH RISK: Target INR is 2.5-3.5 for patients with mechanical heart valves.CBC W/PLT COUNT & AUTO [id number] 10:17:00 Test Item Value Reference Range Interpretation Comments WHITE BLOOD CELL COUNT (BEAKER) 4.8 K/ L 3.5-10.5 (test code = 775) RED BLOOD CELL COUNT (BEAKER) 3.98 M/ L 3.93-5.22 (test code = 761) HEMOGLOBIN (BEAKER) (test code = 12.0 GM/DL 11.2-15.7 410) HEMATOCRIT (BEAKER) (test code = 36.8 % 34.1-44.9 411) MEAN CORPUSCULAR VOLUME (BEAKER) 92.5 fL 79.4-94.8 (test code = 753) MEAN CORPUSCULAR HEMOGLOBIN 30.2 pg 25.6-32.2 (BEAKER) (test code = 751) MEAN CORPUSCULAR HEMOGLOBIN CONC 32.6 GM/DL 32.2-35.5 (BEAKER) (test code = 752) RED CELL DISTRIBUTION WIDTH 13.7 % 11.7-14.4 (BEAKER) (test code = 412) PLATELET COUNT (BEAKER) (test 139 K/CU MM 150-450 L code = 756) MEAN PLATELET VOLUME (BEAKER) 11.4 fL 9.4-12.3 (test code = 754) NUCLEATED RED BLOOD CELLS 0 /100 WBC 0-0 (BEAKER) (test code = 413) NEUTROPHILS RELATIVE PERCENT 65 % (BEAKER) (test code = 429) LYMPHOCYTES RELATIVE PERCENT 21 % (BEAKER) (test code = 430) MONOCYTES RELATIVE PERCENT 7 % (BEAKER) (test code = 431) EOSINOPHILS RELATIVE PERCENT 6 % (BEAKER) (test code = 432) BASOPHILS RELATIVE PERCENT 1 % (BEAKER) (test code = 437) NEUTROPHILS ABSOLUTE COUNT 3.14 K/ L 1.56-6.13 (BEAKER) (test code = 670) LYMPHOCYTES ABSOLUTE COUNT 1.03 K/ L 1.18-3.74 L (BEAKER) (test code = 414) MONOCYTES ABSOLUTE COUNT (BEAKER) 0.33 K/ L 0.24-0.36 (test code = 415) EOSINOPHILS ABSOLUTE COUNT 0.28 K/ L 0.04-0.36 (BEAKER) (test code = 416) BASOPHILS ABSOLUTE COUNT (BEAKER) 0.03 K/ L 0.01-0.08 (test code = 417) IMMATURE GRANULOCYTES-RELATIVE 0 % 0-1 PERCENT (BEAKER) (test code = 2801) POCT-GLUCOSE [id number] 09:37:00 Test Item Value Reference Range Interpretation Comments POC-GLUCOSE METER 85 mg/dL 70-110 TESTED AT [facility] 6720 (BEAKER) (test code = RICHARD Vaughn [facility] [id number] 1538) CT, BRAIN/STROKE [id number] 09:36:00Reason for exam:->CEREBROVASCULAR ACCIDENTFINAL REPORT CT head without contrast INDICATION: Burning sensation left side. TECHNIQUE: Axial noncontrast CT images through the head were obtained. Imaging was performed within 24 hours of arrival at the facility. This exam was performed according to our departmental dose optimiz ation program which includes automated exposure control, adjustment of the mA and/or kV according topatient size and/or use of iterative reconstruction technique. COMPARISON: CT head 07/20/2017 FINDINGS:There is no acute intracranial hemorrhage or mass effect. No acute territorial infarct is evident onCT. Minimal white matter lucency suggests microvascular ischemia without definite acute features. Please note that CT is insensitive for early or small infarcts. There is generalized mild parenchymal volume loss without hydrocephalus or midline shift. The visualized sinuses, mastoid air cells, and orbits are unremarkable. The calvarium is intact. IMPRESSION: No acute intracranial hemorrhage or mass ef fect. No specific CT findings of acute territorial infarct. Suspected microvascular ischemia for which further characterization with MRI can be obtained if there is no contraindication. Findings discussed with stroke neurology housestaff at 9:35 AM. Signed: Lisy Craft Verified Date/Time: 09/02/2017 09:36:54 Reading Location: [facility] Radiology Reading Room , ANKLE, MIN 3 VIEWS, [id number] 21:27:00Reason for exam:->ANKLE PAINReason for exam:->FALLFINAL REPORT Technique: AP, oblique, and lateral views were obtained of the bilateral ankles. Clinical history: Ankle pain, fall COMPARISON: None. IMPRESSION: There is no evidence of acute fracture or dislocation. The ankle mortise is maintained bilaterally. No lytic or blastic abnormalities identified. No radiopaque foreign body is present. Signed: Lazaro Galan Verified Date/Time: 08/13/2017 21:27:44 Reading Location: [facility] C013 Consult Reading Room RAD, ANKLE, MIN 3 VIEWS, LEFT 2017-08-13 21:27:00Reason for exam:->ANKLE PAINReason for exam:->FALLFINAL REPORT Technique: AP, oblique, and lateral views were obtained of the bilateral ankles. Clinical history: Ankle pain, fall COMPARISON: None. IMPRESSION: There is no evidence of acute fracture or dislocation. The ankle mortise is maintained bilaterally. No lytic or blastic abnormalities identified. No radiopaque foreign body is present. Signed: Lazaro Galan Verified Date/Time: 08/13/2017 21:27:44 Reading Location: [facility] C013W Consult Reading Room CT, BRAIN, WITHOUT [id number] 15:53:00Reason for exam:- >headacheIs the patient ?->NoWhat is the patient's sedation requirement?->No SedationFINAL REPORT CT head without contrast 07/20/2017 3:52 PM CLINICAL HISTORY: headacheheadache TECHNIQUE: Axial noncontrast CT images through the head were obtained. This examination was performed according to our departmental dose optimization program, which includes automated exposure control, adjustment of the mA and/or kV according to patient size, and/or use of iterated reconstruction technique. COMPARISON: 05/21/2017 FINDINGS: There is no hemorrhage, extra-axial collection, mass, hydrocephalus, or midline shift. There is no CT evidence for cerebral infarction. The visualized paranasal sinuses and mastoid air cells are well aerated. The skull is intact. IMPRESSION: No intracranial hemorrhage or mass effect. If concern for acute pathology persists, further evaluation with MRI is recommended. Signed: Shilpa Allred Verified Date/Time: 07/20/2017 15:53:35 Reading Location: [address] Neuro Reading Room [id number] 04:46:00 Test Item Value Reference Range Interpretation Comments PHOSPHORUS (BEAKER) (test code = 2.9 mg/dL 2.3-4.7 604) [id number] 04:46:00 Test Item Value Reference Range Interpretation Comments MAGNESIUM (BEAKER) (test code = 1.4 mg/dL 1.6-2.6 L 627) BASIC METABOLIC [id number] 04:46:00 Test Item Value Reference Range Interpretation Comments SODIUM (BEAKER) 140 meq/L 136-145 (test code = 381) POTASSIUM (BEAKER) 3.8 meq/L 3.5-5.1 (test code = 379) CHLORIDE (BEAKER) 106 meq/L 98-107 (test code = 382) CO2 (BEAKER) (test 26 meq/L 22-29 code = 355) BLOOD UREA NITROGEN 9 mg/dL 7-21 (BEAKER) (test code = 354) CREATININE (BEAKER) 0.73 mg/dL 0.57-1.25 (test code = 358) GLUCOSE RANDOM 113 mg/dL 70-105 H (BEAKER) (test code = 652) CALCIUM (BEAKER) 9.1 mg/dL 8.4-10.2 (test code = 697) EGFR (BEAKER) (test 100 mL/min/1.73 ESTIM ATED GFR IS code = 1092) sq m NOT ACCURATE CREATININE CLEARANCE IN PREDICTING GLOMERULAR FILTRATION RATE . ESTIMATED GFR I S NOT APPLICABLE FOR DIALYSIS PATIEN TS. HEPATIC FUNCTION [id number] 04:46:00 Test Item Value Reference Range Interpretation Comments TOTAL PROTEIN (BEAKER) (test code = 6.3 gm/dL 6.0-8.3 770) ALBUMIN (BEAKER) (test code = 1145) 3.3 g/dL 3.5-5.0 L BILIRUBIN TOTAL (BEAKER) (test code 0.6 mg/dL 0.2-1.2 = 377) BILIRUBIN DIRECT (BEAKER) (test 0.3 mg/dL 0.1-0.5 code = 706) ALKALINE PHOSPHATASE (BEAKER) (test 100 U/L 40-150 code = 346) AST (SGOT) (BEAKER) (test code = 28 U/L 5-34 353) ALT (SGPT) (BEAKER) (test code = 23 U/L 6-55 347) CBC W/PLT COUNT & AUTO [id number] 04:12:00 Test Item Value Reference Range Interpretation Comments WHITE BLOOD CELL COUNT (BEAKER) 3.5 K/ L 3.5-10.5 (test code = 775) RED BLOOD CELL COUNT (BEAKER) 4.11 M/ L 3.93-5.22 (test code = 761) HEMOGLOBIN (BEAKER) (test code = 11.7 GM/DL 11.2-15.7 410) HEMATOCRIT (BEAKER) (test code = 36.8 % 34.1-44.9 411) MEAN CORPUSCULAR VOLUME (BEAKER) 89.5 fL 79.4-94.8 (test code = 753) MEAN CORPUSCULAR HEMOGLOBIN 28.5 pg 25.6-32.2 (BEAKER) (test code = 751) MEAN CORPUSCULAR HEMOGLOBIN CONC 31.8 GM/DL 32.2-35.5 L (BEAKER) (test code = 752) RED CELL DISTRIBUTION WIDTH 12.6 % 11.7-14.4 (BEAKER) (test code = 412) PLATELET COUNT (BEAKER) (test 124 K/CU MM 150-450 L code = 756) MEAN PLATELET VOLUME (BEAKER) 10.8 fL 9.4-12.3 (test code = 754) NUCLEATED RED BLOOD CELLS 0 /100 WBC 0-0 (BEAKER) (test code = 413) NEUTROPHILS RELATIVE PERCENT 46 % (BEAKER) (test code = 429) LYMPHOCYTES RELATIVE PERCENT 34 % (BEAKER) (test code = 430) MONOCYTES RELATIVE PERCENT 11 % (BEAKER) (test code = 431) EOSINOPHILS RELATIVE PERCENT 8 % (BEAKER) (test code = 432) BASOPHILS RELATIVE PERCENT 0 % (BEAKER) (test code = 437) NEUTROPHILS ABSOLUTE COUNT 1.62 K/ L 1.56-6.13 (BEAKER) (test code = 670) LYMPHOCYTES ABSOLUTE COUNT 1.21 K/ L 1.18-3.74 (BEAKER) (test code = 414) MONOCYTES ABSOLUTE COUNT (BEAKER) 0.39 K/ L 0.24-0.36 H (test code = 415) EOSINOPHILS ABSOLUTE COUNT 0.29 K/ L 0.04-0.36 (BEAKER) (test code = 416) BASOPHILS ABSOLUTE COUNT (BEAKER) 0.01 K/ L 0.01-0.08 (test code = 417) IMMATURE GRANULOCYTES-RELATIVE 0 % 0-1 PERCENT (BEAKER) (test code = 2801) HEMOGLOBIN [id number] 13:39:00 Test Item Value Reference Range Interpretation Comments HEMOGLOBIN A1C (BEAKER) (test code = 5.3 % 4.3-6.1 368) TSH/FREE T4 IF [id number] 08:22:00 Test Item Value Reference Range Interpretation Comments THYROID STIMULATING HORMONE 0.89 uIU/mL 0.35-4.94 (BEAKER) (test code = 772) CREATINE KINASE (CK), TOTAL AND [id number] 07:21:00 Test Item Value Reference Range Interpretation Comments CREATINE KINASE TOTAL (BEAKER) 81 U/L 29-200 (test code = 380) CREATINE KINASE-MB (BEAKER) (test 1.2 ng/mL 0.0-6.6 code = 750) CREATINE KINASE-MB INDEX (BEAKER) 1.5 % (test code = 395) CK-MB Reference Range:<6.7 Normal6.7-10.0 Borderline>10.0 AbnormalTROPONIN [id number] 07:21:00 Test Item Value Reference Range Interpretation Comments TROPONIN I (BEAKER) (test code = 0.02 ng/mL 0.00-0.03 397) Troponin I (TnI) levels must be interpreted in the context of the presenting symptoms and the clinical findings. Elevated TnI levels indicate myocardial damage, but are not specific for ischemic heart disease. Elevated TnI levels are seen in patients with other cardiac conditions (including myocarditis and congestive heart failure), and slight TnI elevations occur in patients with other conditions, including sepsis, renal failure, acidosis, acute neurological disease, and persistent tachyarrhythmia.CREATINE KINASE (CK), TOTAL AND MB 2017-05-22 07:20:00 Test Item Value Reference Range Interpretation Comments CREATINE KINASE TOTAL (BEAKER) 86 U/L 29-200 (test code = 380) CREATINE KINASE-MB (BEAKER) (test 1.2 ng/mL 0.0-6.6 code = 750) CREATINE KINASE-MB INDEX (BEAKER) 1.4 % (test code = 395) CK-MB Reference Range:<6.7 Normal6.7-10.0 Borderline>10.0 AbnormalTROPONIN [id number] 07:20:00 Test Item Value Reference Range Interpretation Comments TROPONIN I (BEAKER) (test code = 0.02 ng/mL 0.00-0.03 397) Troponin I (TnI) levels must be interpreted in the context of the presenting symptoms and the clinical findings. Elevated TnI levels indicate myocardial damage, but are not specific for ischemic heart disease. Elevated TnI levels are seen in patients with other cardiac conditions (including myocarditis and congestive heart failure), and slight TnI elevations occur in patients with other conditions, including sepsis, renal failure, acidosis, acute neurological disease, and persistent tachyarrhythmia.[id number] 07:14:00 Test Item Value Reference Range Interpretation Comments PHOSPHORUS (BEAKER) (test code = 4.0 mg/dL 2.3-4.7 604) [id number] 07:14:00 Test Item Value Reference Range Interpretation Comments MAGNESIUM (BEAKER) (test code = 1.7 mg/dL 1.6-2.6 627) BASIC METABOLIC [id number] 07:14:00 Test Item Value Reference Range Interpretation Comments SODIUM (BEAKER) 144 meq/L 136-145 (test code = 381) POTASSIUM (BEAKER) 4.3 meq/L 3.5-5.1 (test code = 379) CHLORIDE (BEAKER) 110 meq/L 98-107 H (test code = 382) CO2 (BEAKER) (test 26 meq/L 22-29 code = 355) BLOOD UREA NITROGEN 11 mg/dL 7-21 (BEAKER) (test code = 354) CREATININE (BEAKER) 0.73 mg/dL 0.57-1.25 (test code = 358) GLUCOSE RANDOM 81 mg/dL 70-105 (BEAKER) (test code = 652) CALCIUM (BEAKER) 9.7 mg/dL 8.4-10.2 (test code = 697) EGFR (BEAKER) (test 100 mL/min/1.73 ESTIM ATED GFR IS code = 1092) sq m NOT ACCURATE CREATININE CLEARANCE IN PREDICTING GLOMERULAR FILTRATION RATE . ESTIMATED GFR I S NOT APPLICABLE FOR DIALYSIS PATIEN TS. LIPID [id number] 07:14:00 Test Item Value Reference Range Interpretation Comments TRIGLYCERIDES (BEAKER) (test code = 36 mg/dL 540) CHOLESTEROL (BEAKER) (test code = 143 mg/dL 631) HDL CHOLESTEROL (BEAKER) (test code 64 mg/dL = 976) LDL CHOLESTEROL CALCULATED (BEAKER) 72 mg/dL (test code = 633) Triglyceride Reference Range: Low Risk <150 Borderline 150-199 High Risk 200- 499 Very High Risk >=500Cholesterol Reference Range: Low Risk <200 Borderline 200-239 High Risk >240HDL Cholesterol Reference Range: Low Risk >=60 High Risk <40LDL Cholesterol Reference Range: Optimal <100 Near Optimal 100-129 Borderline 130-159 High 160-189 Very High >=190HEPATIC FUNCTION [id number] 07:14:00 Test Item Value Reference Range Interpretation Comments TOTAL PROTEIN (BEAKER) (test code = 6.9 gm/dL 6.0-8.3 770) ALBUMIN (BEAKER) (test code = 1145) 3.7 g/dL 3.5-5.0 BILIRUBIN TOTAL (BEAKER) (test code 0.6 mg/dL 0.2-1.2 = 377) BILIRUBIN DIRECT (BEAKER) (test 0.3 mg/dL 0.1-0.5 code = 706) ALKALINE PHOSPHATASE (BEAKER) (test 107 U/L 40-150 code = 346) AST (SGOT) (BEAKER) (test code = 28 U/L 5-34 353) ALT (SGPT) (BEAKER) (test code = 21 U/L 6-55 347) CBC W/PLT COUNT & AUTO [id number] 06:42:00 Test Item Value Reference Range Interpretation Comments WHITE BLOOD CELL COUNT (BEAKER) 4.3 K/ L 3.5-10.5 (test code = 775) RED BLOOD CELL COUNT (BEAKER) 4.28 M/ L 3.93-5.22 (test code = 761) HEMOGLOBIN (BEAKER) (test code = 12.4 GM/DL 11.2-15.7 410) HEMATOCRIT (BEAKER) (test code = 38.0 % 34.1-44.9 411) MEAN CORPUSCULAR VOLUME (BEAKER) 88.8 fL 79.4-94.8 (test code = 753) MEAN CORPUSCULAR HEMOGLOBIN 29.0 pg 25.6-32.2 (BEAKER) (test code = 751) MEAN CORPUSCULAR HEMOGLOBIN CONC 32.6 GM/DL 32.2-35.5 (BEAKER) (test code = 752) RED CELL DISTRIBUTION WIDTH 12.7 % 11.7-14.4 (BEAKER) (test code = 412) PLATELET COUNT (BEAKER) (test 132 K/CU MM 150-450 L code = 756) MEAN PLATELET VOLUME (BEAKER) 11.2 fL 9.4-12.3 (test code = 754) NUCLEATED RED BLOOD CELLS 0 /100 WBC 0-0 (BEAKER) (test code = 413) NEUTROPHILS RELATIVE PERCENT 51 % (BEAKER) (test code = 429) LYMPHOCYTES RELATIVE PERCENT 32 % (BEAKER) (test code = 430) MONOCYTES RELATIVE PERCENT 9 % (BEAKER) (test code = 431) EOSINOPHILS RELATIVE PERCENT 8 % (BEAKER) (test code = 432) BASOPHILS RELATIVE PERCENT 1 % (BEAKER) (test code = 437) NEUTROPHILS ABSOLUTE COUNT 2.17 K/ L 1.56-6.13 (BEAKER) (test code = 670) LYMPHOCYTES ABSOLUTE COUNT 1.39 K/ L 1.18-3.74 (BEAKER) (test code = 414) MONOCYTES ABSOLUTE COUNT (BEAKER) 0.38 K/ L 0.24-0.36 H (test code = 415) EOSINOPHILS ABSOLUTE COUNT 0.33 K/ L 0.04-0.36 (BEAKER) (test code = 416) BASOPHILS ABSOLUTE COUNT (BEAKER) 0.02 K/ L 0.01-0.08 (test code = 417) IMMATURE GRANULOCYTES-RELATIVE 0 % 0-1 PERCENT (BEAKER) (test code = 2801) [id number] 20:06:00 Test Item Value Reference Range Interpretation Comments PROTIME (BEAKER) (test code = 15.1 seconds 11.7-14.7 H 759) INR (BEAKER) (test code = 370) 1.2 <=5.9 PARTIAL THROMBOPLASTIN TIME 31.0 seconds 22.5-36.0 (BEAKER) (test code = 760) RECOMMENDED COUMADIN/WARFARIN INR THERAPY RANGESSTANDARD DOSE: 2.0 - 3.0 Includes: PROPHYLAXIS for venous thrombosis, systemic embolization; TREATMENT for venous thrombosis and/or pulmonary embolus.HIGH RISK: Target INR is 2.5-3.5 for patients with mechanical heart valves.CREATINE KINASE (CK), TOTAL AND MB 2017-05-21 20:00:00 Test Item Value Reference Range Interpretation Comments CREATINE KINASE TOTAL (BEAKER) 95 U/L 29-200 (test code = 380) CREATINE KINASE-MB (BEAKER) (test 1.4 ng/mL 0.0-6.6 code = 750) CREATINE KINASE-MB INDEX (BEAKER) 1.5 % (test code = 395) CK-MB Reference Range:<6.7 Normal6.7-10.0 Borderline>10.0 AbnormalTROPONIN [id number] 20:00:00 Test Item Value Reference Range Interpretation Comments TROPONIN I (BEAKER) (test code = 0.03 ng/mL 0.00-0.03 397) Troponin I (TnI) levels must be interpreted in the context of the presenting symptoms and the clinical findings. Elevated TnI levels indicate myocardial damage, but are not specific for ischemic heart disease. Elevated TnI levels are seen in patients with other cardiac conditions (including myocarditis and congestive heart failure), and slight TnI elevations occur in patients with other conditions, including sepsis, renal failure, acidosis, acute neurological disease, and persistent tachyarrhythmia.B-TYPE NATRIURETIC FACTOR (BNP) 2017-05-21 20:00:00 Test Item Value Reference Range Interpretation Comments B-TYPE NATRIURETIC PEPTIDE (BEAKER) 415 pg/mL 0-100 H (test code = 700) BASIC METABOLIC [id number] 19:54:00 Test Item Value Reference Range Interpretation Comments SODIUM (BEAKER) 142 meq/L 136-145 (test code = 381) POTASSIUM (BEAKER) 4.1 meq/L 3.5-5.1 (test code = 379) CHLORIDE (BEAKER) 108 meq/L 98-107 H (test code = 382) CO2 (BEAKER) (test 26 meq/L 22-29 code = 355) BLOOD UREA NITROGEN 11 mg/dL 7-21 (BEAKER) (test code = 354) CREATININE (BEAKER) 0.72 mg/dL 0.57-1.25 (test code = 358) GLUCOSE RANDOM 75 mg/dL 70-105 (BEAKER) (test code = 652) CALCIUM (BEAKER) 9.4 mg/dL 8.4-10.2 (test code = 697) EGFR (BEAKER) (test 101 mL/min/1.73 ESTIM ATED GFR IS code = 1092) sq m NOT ACCURATE CREATININE CLEARANCE IN PREDICTING GLOMERULAR FILTRATION RATE . ESTIMATED GFR I S NOT APPLICABLE FOR DIALYSIS PATIEN TS. CBC W/PLT COUNT & AUTO [id number] 19:38:00 Test Item Value Reference Range Interpretation Comments WHITE BLOOD CELL COUNT (BEAKER) 5.7 K/ L 3.5-10.5 (test code = 775) RED BLOOD CELL COUNT (BEAKER) 4.21 M/ L 3.93-5.22 (test code = 761) HEMOGLOBIN (BEAKER) (test code = 12.1 GM/DL 11.2-15.7 410) HEMATOCRIT (BEAKER) (test code = 37.6 % 34.1-44.9 411) MEAN CORPUSCULAR VOLUME (BEAKER) 89.3 fL 79.4-94.8 (test code = 753) MEAN CORPUSCULAR HEMOGLOBIN 28.7 pg 25.6-32.2 (BEAKER) (test code = 751) MEAN CORPUSCULAR HEMOGLOBIN CONC 32.2 GM/DL 32.2-35.5 (BEAKER) (test code = 752) RED CELL DISTRIBUTION WIDTH 12.5 % 11.7-14.4 (BEAKER) (test code = 412) PLATELET COUNT (BEAKER) (test 140 K/CU MM 150-450 L code = 756) MEAN PLATELET VOLUME (BEAKER) 11.2 fL 9.4-12.3 (test code = 754) NUCLEATED RED BLOOD CELLS 0 /100 WBC 0-0 (BEAKER) (test code = 413) NEUTROPHILS RELATIVE PERCENT 61 % (BEAKER) (test code = 429) LYMPHOCYTES RELATIVE PERCENT 24 % (BEAKER) (test code = 430) MONOCYTES RELATIVE PERCENT 8 % (BEAKER) (test code = 431) EOSINOPHILS RELATIVE PERCENT 7 % (BEAKER) (test code = 432) BASOPHILS RELATIVE PERCENT 1 % (BEAKER) (test code = 437) NEUTROPHILS ABSOLUTE COUNT 3.45 K/ L 1.56-6.13 (BEAKER) (test code = 670) LYMPHOCYTES ABSOLUTE COUNT 1.34 K/ L 1.18-3.74 (BEAKER) (test code = 414) MONOCYTES ABSOLUTE COUNT (BEAKER) 0.46 K/ L 0.24-0.36 H (test code = 415) EOSINOPHILS ABSOLUTE COUNT 0.37 K/ L 0.04-0.36 H (BEAKER) (test code = 416) BASOPHILS ABSOLUTE COUNT (BEAKER) 0.03 K/ L 0.01-0.08 (test code = 417) IMMATURE GRANULOCYTES-RELATIVE 0 % 0-1 PERCENT (BEAKER) (test code = 2801) RAD, CHEST, 2 [id number] 18:45:00Reason for exam:->LOSS OF CONSCIOUSNESSIs the patient ?->NoShould this be performed atthe bedside?->NoFINAL REPORT HISTORY : LOSS OF CONSCIOUSNESS. Comparison: 04/20/2017 Comment: Twoviews of the chest, PA and lateral, were obtained. The cardiac silhouette is enlarged. No pneumothorax or pleural effusion is seen. There is some minimal left basilar patchy airspace disease which may represent atelectasis. Pneumonitis or aspiration cannot be excluded. No lytic or blastic abnormalities. A left-sided multilead ICD is in place. Signed: Kiera Wong Verified Date/Time: 05/21/2017 18:45:01 Reading Location: [facility] [id number] Consult Reading Room CT, BRAIN, WITHOUT [id number] 17:42:00Reason for exam:->LOSS OF CONSCIOUSNESSIs the patient ?- >NoWhat is the patient's sedation requirement?->No SedationFINAL REPORT CT head without contrast. Comparisons: April 21, 2017 Reason forexam: Syncope/faintingLOSS OF CONSCIOUSNESS. Discussion: Multiple axial CT images of the head are provided without contrast evaluated in brain and bone windows. Dose modulation, iterative reconstruction, and/or weight based adjustment of the mA/kV was utilized to reduce the radiation dose to as low as reasonably achievable. There is no CT evidence of intracranial hemorrhage, mass- effect, hydrocephalus, shift, or extra-axial collections. There is a right frontal scalp hematoma with no underlying fracture. The visualized dural sinus regions, orbital contents, paranasal sinuses, bones and surrounding soft tissues are otherwise unremarkable. Impressions: 1. No specific evidence of acute intracranial abnormality. 2. Right frontal scalp trauma. Signed: Tan Lewis Verified Date/Time: 05/21/2017 17:42:14 [id number] 07:21:00 Test Item Value Reference Range Interpretation Comments MAGNESIUM (BEAKER) 1.8 mg/dL 1.6-2.6 Specimen slightly (test code = 627) hemolyzed [id number] 07:21:00 Test Item Value Reference Range Interpretation Comments PHOSPHORUS (BEAKER) 3.2 mg/dL 2.3-4.7 Specimen slightly (test code = 604) hemolyzed BASIC METABOLIC [id number] 07:21:00 Test Item Value Reference Range Interpretation Comments SODIUM (BEAKER) 138 meq/L 136-145 (test code = 381) POTASSIUM (BEAKER) 4.2 meq/L 3.5-5.1 Specimen slightly (test code = 379) hemolyzed CHLORIDE (BEAKER) 103 meq/L 98-107 (test code = 382) CO2 (BEAKER) (test 25 meq/L 22-29 code = 355) BLOOD UREA NITROGEN 12 mg/dL 7-21 (BEAKER) (test code = 354) CREATININE (BEAKER) 0.77 mg/dL 0.57-1.25 Specimen slightly (test code = 358) hemolyzed GLUCOSE RANDOM 71 mg/dL 70-105 (BEAKER) (test code = 652) CALCIUM (BEAKER) 9.7 mg/dL 8.4-10.2 (test code = 697) EGFR (BEAKER) (test 94 mL/min/1.73 ESTIMA ANDREAS GFR IS code = 1092) sq m NOT ACCURATE CREATININE CLEARANCE IN PREDICTING GLOMERULAR FILTRATION RATE . ESTIMATED GFR I S NOT APPLICABLE FOR DIALYSIS PATIEN TS. CALCIUM, [id number] 07:04:00 Test Item Value Reference Range Interpretation Comments CALCIUM IONIZED (BEAKER) (test 1.06 mmol/L 1.12-1.27 L code = 698) PH, BLOOD (BEAKER) (test code = 7.45 1810) CBC W/PLT COUNT & AUTO [id number] 06:37:00 Test Item Value Reference Range Interpretation Comments WHITE BLOOD CELL COUNT (BEAKER) 4.7 K/ L 3.5-10.5 (test code = 775) RED BLOOD CELL COUNT (BEAKER) 4.87 M/ L 3.93-5.22 (test code = 761) HEMOGLOBIN (BEAKER) (test code = 14.3 GM/DL 11.2-15.7 410) HEMATOCRIT (BEAKER) (test code = 43.6 % 34.1-44.9 411) MEAN CORPUSCULAR VOLUME (BEAKER) 89.5 fL 79.4-94.8 (test code = 753) MEAN CORPUSCULAR HEMOGLOBIN 29.4 pg 25.6-32.2 (BEAKER) (test code = 751) MEAN CORPUSCULAR HEMOGLOBIN CONC 32.8 GM/DL 32.2-35.5 (BEAKER) (test code = 752) RED CELL DISTRIBUTION WIDTH 12.9 % 11.7-14.4 (BEAKER) (test code = 412) PLATELET COUNT (BEAKER) (test 145 K/CU MM 150-450 L code = 756) MEAN PLATELET VOLUME (BEAKER) 10.8 fL 9.4-12.3 (test code = 754) NUCLEATED RED BLOOD CELLS 0 /100 WBC 0-0 (BEAKER) (test code = 413) NEUTROPHILS RELATIVE PERCENT 58 % (BEAKER) (test code = 429) LYMPHOCYTES RELATIVE PERCENT 25 % (BEAKER) (test code = 430) MONOCYTES RELATIVE PERCENT 9 % (BEAKER) (test code = 431) EOSINOPHILS RELATIVE PERCENT 7 % (BEAKER) (test code = 432) BASOPHILS RELATIVE PERCENT 1 % (BEAKER) (test code = 437) NEUTROPHILS ABSOLUTE COUNT 2.72 K/ L 1.56-6.13 (BEAKER) (test code = 670) LYMPHOCYTES ABSOLUTE COUNT 1.14 K/ L 1.18-3.74 L (BEAKER) (test code = 414) MONOCYTES ABSOLUTE COUNT (BEAKER) 0.43 K/ L 0.24-0.36 H (test code = 415) EOSINOPHILS ABSOLUTE COUNT 0.33 K/ L 0.04-0.36 (BEAKER) (test code = 416) BASOPHILS ABSOLUTE COUNT (BEAKER) 0.03 K/ L 0.01-0.08 (test code = 417) IMMATURE GRANULOCYTES-RELATIVE 0 % 0-1 PERCENT (BEAKER) (test code = 2801) [id number] 03:14:00 Test Item Value Reference Range Interpretation Comments PHOSPHORUS (BEAKER) (test code = 2.7 mg/dL 2.3-4.7 604) [id number] 03:14:00 Test Item Value Reference Range Interpretation Comments MAGNESIUM (BEAKER) (test code = 1.8 mg/dL 1.6-2.6 627) BASIC METABOLIC [id number] 03:14:00 Test Item Value Reference Range Interpretation Comments SODIUM (BEAKER) 137 meq/L 136-145 (test code = 381) POTASSIUM (BEAKER) 4.1 meq/L 3.5-5.1 (test code = 379) CHLORIDE (BEAKER) 101 meq/L 98-107 (test code = 382) CO2 (BEAKER) (test 29 meq/L 22-29 code = 355) BLOOD UREA NITROGEN 13 mg/dL 7-21 (BEAKER) (test code = 354) CREATININE (BEAKER) 0.82 mg/dL 0.57-1.25 (test code = 358) GLUCOSE RANDOM 108 mg/dL 70-105 H (BEAKER) (test code = 652) CALCIUM (BEAKER) 9.1 mg/dL 8.4-10.2 (test code = 697) EGFR (BEAKER) (test 87 mL/min/1.73 ESTIMA ANDREAS GFR IS code = 1092) sq m NOT ACCURATE CREATININE CLEARANCE IN PREDICTING GLOMERULAR FILTRATION RATE . ESTIMATED GFR I S NOT APPLICABLE FOR DIALYSIS PATIEN TS. CBC W/PLT COUNT & AUTO [id number] 03:03:00 Test Item Value Reference Range Interpretation Comments WHITE BLOOD CELL COUNT (BEAKER) 4.3 K/ L 3.5-10.5 (test code = 775) RED BLOOD CELL COUNT (BEAKER) 4.62 M/ L 3.93-5.22 (test code = 761) HEMOGLOBIN (BEAKER) (test code = 13.4 GM/DL 11.2-15.7 410) HEMATOCRIT (BEAKER) (test code = 40.9 % 34.1-44.9 411) MEAN CORPUSCULAR VOLUME (BEAKER) 88.5 fL 79.4-94.8 (test code = 753) MEAN CORPUSCULAR HEMOGLOBIN 29.0 pg 25.6-32.2 (BEAKER) (test code = 751) MEAN CORPUSCULAR HEMOGLOBIN CONC 32.8 GM/DL 32.2-35.5 (BEAKER) (test code = 752) RED CELL DISTRIBUTION WIDTH 13.0 % 11.7-14.4 (BEAKER) (test code = 412) PLATELET COUNT (BEAKER) (test 145 K/CU MM 150-450 L code = 756) MEAN PLATELET VOLUME (BEAKER) 11.4 fL 9.4-12.3 (test code = 754) NUCLEATED RED BLOOD CELLS 0 /100 WBC 0-0 (BEAKER) (test code = 413) NEUTROPHILS RELATIVE PERCENT 49 % (BEAKER) (test code = 429) LYMPHOCYTES RELATIVE PERCENT 31 % (BEAKER) (test code = 430) MONOCYTES RELATIVE PERCENT 10 % (BEAKER) (test code = 431) EOSINOPHILS RELATIVE PERCENT 10 % (BEAKER) (test code = 432) BASOPHILS RELATIVE PERCENT 1 % (BEAKER) (test code = 437) NEUTROPHILS ABSOLUTE COUNT 2.09 K/ L 1.56-6.13 (BEAKER) (test code = 670) LYMPHOCYTES ABSOLUTE COUNT 1.33 K/ L 1.18-3.74 (BEAKER) (test code = 414) MONOCYTES ABSOLUTE COUNT (BEAKER) 0.41 K/ L 0.24-0.36 H (test code = 415) EOSINOPHILS ABSOLUTE COUNT 0.43 K/ L 0.04-0.36 H (BEAKER) (test code = 416) BASOPHILS ABSOLUTE COUNT (BEAKER) 0.04 K/ L 0.01-0.08 (test code = 417) IMMATURE GRANULOCYTES-RELATIVE 0 % 0-1 PERCENT (BEAKER) (test code = 2801) [id number] 16:06:00 Test Item Value Reference Range Interpretation Comments POTASSIUM (BEAKER) (test code = 4.3 meq/L 3.5-5.1 379) Check Serum Potassium level 2 hours after oral potassium replacement completed or 30 min after intravenous potassium replacement.POCT-GLUCOSE [id number] 13:17:00 Test Item Value Reference Range Interpretation Comments POC-GLUCOSE METER 73 mg/dL 70-110 TESTED AT [place] [address] ([facility]) (test code = [facility] [address] 1538) HEMOGLOBIN [id number] 10:55:00 Test Item Value Reference Range Interpretation Comments HEMOGLOBIN A1C ([facility]) (test code = 4.8 % 4.3-6.1 368) POCT-GLUCOSE [id number] 07:58:00 Test Item Value Reference Range Interpretation Comments POC-GLUCOSE METER 149 mg/dL 70-110 H TESTED AT [place] [address] ([facility]) (test code = [facility] 1538) [id number] POCT-GLUCOSE [id number] 07:58:00 Test Item Value Reference Range Interpretation Comments POC-GLUCOSE METER 132 mg/dL 70-110 H TESTED AT [place] [address] ([facility]) (test code = [facility] 1538) [id number] TSH/FREE T4 IF [id number] 07:48:00 Test Item Value Reference Range Interpretation Comments THYROID STIMULATING HORMONE 0.51 uIU/mL 0.35-4.94 (BEAKER) (test code = 772) VITAMIN B12 AND [id number] 07:48:00 Test Item Value Reference Range Interpretation Comments VITAMIN B12 (BEAKER) (test code = > pg/mL 213-816 H 774) FOLATE (BEAKER) (test code = 362) 15.3 ng/mL >=7.0 BASIC METABOLIC [id number] 03:39:00 Test Item Value Reference Range Interpretation Comments SODIUM (BEAKER) 138 meq/L 136-145 (test code = 381) POTASSIUM (BEAKER) 3.7 meq/L 3.5-5.1 (test code = 379) CHLORIDE (BEAKER) 103 meq/L 98-107 (test code = 382) CO2 (BEAKER) (test 25 meq/L 22-29 code = 355) BLOOD UREA NITROGEN 13 mg/dL 7-21 (BEAKER) (test code = 354) CREATININE (BEAKER) 0.78 mg/dL 0.57-1.25 (test code = 358) GLUCOSE RANDOM 98 mg/dL 70-105 (BEAKER) (test code = 652) CALCIUM (BEAKER) 9.3 mg/dL 8.4-10.2 (test code = 697) EGFR (BEAKER) (test 92 mL/min/1.73 ESTIMA ANDREAS GFR IS code = 1092) sq m NOT ACCURATE CREATININE CLEARANCE IN PREDICTING GLOMERULAR FILTRATION RATE . ESTIMATED GFR I S NOT APPLICABLE FOR DIALYSIS PATIEN TS. LIPID [id number] 03:37:00 Test Item Value Reference Range Interpretation Comments TRIGLYCERIDES (BEAKER) (test code = 53 mg/dL 540) CHOLESTEROL (BEAKER) (test code = 190 mg/dL 631) HDL CHOLESTEROL (BEAKER) (test code 67 mg/dL = 976) LDL CHOLESTEROL CALCULATED (BEAKER) 112 mg/dL (test code = 633) Triglyceride Reference Range: Low Risk <150 Borderline 150-199 High Risk 200- 499 Very High Risk >=500Cholesterol Reference Range: Low Risk <200 Borderline 200-239 High Risk >240HDL Cholesterol Reference Range: Low Risk >=60 High Risk <40LDL Cholesterol Reference Range: Optimal <100 Near Optimal 100-129 Borderline 130-159 High 160-189 Very High >=190 FastingCBC W/PLT COUNT & AUTO [id number] 03:15:00 Test Item Value Reference Range Interpretation Comments WHITE BLOOD CELL COUNT (BEAKER) 8.1 K/ L 3.5-10.5 (test code = 775) RED BLOOD CELL COUNT (BEAKER) 4.69 M/ L 3.93-5.22 (test code = 761) HEMOGLOBIN (BEAKER) (test code = 13.7 GM/DL 11.2-15.7 410) HEMATOCRIT (BEAKER) (test code = 41.1 % 34.1-44.9 411) MEAN CORPUSCULAR VOLUME (BEAKER) 87.6 fL 79.4-94.8 (test code = 753) MEAN CORPUSCULAR HEMOGLOBIN 29.2 pg 25.6-32.2 (BEAKER) (test code = 751) MEAN CORPUSCULAR HEMOGLOBIN CONC 33.3 GM/DL 32.2-35.5 (BEAKER) (test code = 752) RED CELL DISTRIBUTION WIDTH 13.1 % 11.7-14.4 (BEAKER) (test code = 412) PLATELET COUNT (BEAKER) (test 137 K/CU MM 150-450 L code = 756) MEAN PLATELET VOLUME (BEAKER) 11.2 fL 9.4-12.3 (test code = 754) NUCLEATED RED BLOOD CELLS 0 /100 WBC 0-0 (BEAKER) (test code = 413) NEUTROPHILS RELATIVE PERCENT 77 % (BEAKER) (test code = 429) LYMPHOCYTES RELATIVE PERCENT 13 % (BEAKER) (test code = 430) MONOCYTES RELATIVE PERCENT 8 % (BEAKER) (test code = 431) EOSINOPHILS RELATIVE PERCENT 2 % (BEAKER) (test code = 432) BASOPHILS RELATIVE PERCENT 1 % (BEAKER) (test code = 437) NEUTROPHILS ABSOLUTE COUNT 6.27 K/ L 1.56-6.13 H (BEAKER) (test code = 670) LYMPHOCYTES ABSOLUTE COUNT 1.02 K/ L 1.18-3.74 L (BEAKER) (test code = 414) MONOCYTES ABSOLUTE COUNT (BEAKER) 0.63 K/ L 0.24-0.36 H (test code = 415) EOSINOPHILS ABSOLUTE COUNT 0.15 K/ L 0.04-0.36 (BEAKER) (test code = 416) BASOPHILS ABSOLUTE COUNT (BEAKER) 0.04 K/ L 0.01-0.08 (test code = 417) IMMATURE GRANULOCYTES-RELATIVE 0 % 0-1 PERCENT (BEAKER) (test code = 2801) CT, CAROTID, [id number] 02:51:00Reason for exam:->NEUROLOGIC PROBLEM FINAL REPORT CT, CAROTID, ANGIO, CT, CTANGIO BRAIN, CT BRAIN WITHOUT IV CONTRAST - PORTABLE INDICATION: "NEUROLOGIC PROBLEMstroke work up" COMPARISON: None TECHNIQUE:Rapid acquisition spiral images were obtained between the aortic arch and the cranial vertex during intravenous contrast infusion to reconstruct axial images and angiographic 3D maximum intensity projections (MIP). 3-D volumetric reformatted images were created at a dedicated workstation. Precontrast images of the brain were also obtained. Measurements are performed according to NASCET criteria. DOSE REDUCTION: Dose modulation, iterative reconstruction, and/or weight-based adjustment of the mA/kV was utilized to reduce the radiation dose to as low as reasonably achievable. FINDINGS: NECT BRAIN: Midline structuresand posterior fossa within normal limits.No subacute territorial infarction or hyperdense thrombus.No acute intracranial hemorrhage.No acute hydrocephalus. Intact calvarium.Symmetric globes.The paranasal sinuses and mastoid air cells are well aerated. CTA NECK:On the right, there is no significant atherosclerotic plaque at the CCA bifurcation. No flow limiting stenosis or dissection.On the left, there is no significant atherosclerotic plaque at the CCA bifurcation. No flow limiting stenosis or dissection.Right dominant vertebral artery system. No flow limiting stenosis of vertebral arteries. Nonvascular findings:No acute osseous abnormality.No adenopathy. Patent aerodigestive tract.No apical consolidation or pneumothorax. CTA BRAIN:No flow limiting stenosis, large vessel occlusion, or aneurysm ofthe anterior circulation.No flow limiting stenosis, large vessel occlusion, or aneurysm of the posterior circulation.Major venous sinuses opacify normally on this suboptimal exam for these structures. IMPRESSION:No acute intracranial abnormality.Unremarkable CTA of the head and neck. Signed: Param Tinajero MDReport Verified Date/Time: 04/21/2017 02:51:51 Reading Location: [address] Consult Reading Room CT, CTANGIO [id number] 02:51:00Reason for exam:- >NEUROLOGIC PROBLEMFINAL REPORT CT, CAROTID, ANGIO, CT, CTANGIO BRAIN, CT BRAIN WITHOUT IV CONTRAST - PORTABLE INDICATION: "NEUROLOGIC PROBLEMstroke work up" COMPARISON: None TECHNIQUE:Rapid acquisition spiral images were obtained between the aortic arch and the cranial vertex during intravenous contrast infusion to reconstruct axial images and angiographic 3D maximum intensity projections (MIP). 3-D volumetric reformatted images were created at a dedicated workstation. Precontrast images of the brain were also obtained. Measurements are performed according to NASCET criteria. DOSE REDUCTION: Dose modulation, iterative reconstruction, and/or weight-based adjustment of the mA/kV was utilized to reduce the radiation dose to as low as reasonably achievable. FINDINGS: NECT BRAIN: Midline structuresand posterior fossa within normal limits.No subacute territorial infarction or hyperdense thrombus.No acute intracranial hemorrhage.No acute hydrocephalus. Intact calvarium.Symmetric globes.The paranasal sinuses and mastoid air cells are well aerated. CTA NECK:On the right, there is no significant atherosclerotic plaque at the CCA bifurcation. No flow limiting stenosis or dissection.On the left, there is no significant atherosclerotic plaque at the CCA bifurcation. No flow limiting stenosis or dissection.Right dominant vertebral artery system. No flow limiting stenosis of vertebral arteries. Nonvascular findings:No acute osseous abnormality.No adenopathy. Patent aerodigestive tract.No apical consolidation or pneumothorax. CTA BRAIN:No flow limiting stenosis, large vessel occlusion, or aneurysm ofthe anterior circulation.No flow limiting stenosis, large vessel occlusion, or aneurysm of the posterior circulation.Major venous sinuses opacify normally on this suboptimal exam for these structures. IMPRESSION:No acute intracranial abnormality.Unremarkable CTA of the head and neck. Signed: Param Tinajero MDReport Verified Date/Time: 04/21/2017 02:51:51 Reading Location: [address] Consult Reading Room CT BRAIN WITHOUT IV CONTRAST - [id number] 02:51:00Reason for exam:->NEUROLOGIC PROBLEMFINAL REPORT CT, CAROTID, ANGIO, CT, CTANGIO BRAIN, CT BRAIN WITHOUT IV CONTRAST - PORTABLE INDICATION: "NEUROLOGIC PROBLEMstroke work up" COMPARISON: None TECHNIQUE:Rapid acquisition spiral images were obtained between the aortic arch and the cranial vertex during intravenous contrast infusion to reconstruct axial images and angiographic 3D maximum intensity projections (MIP). 3-D volumetric reformatted images were created at a dedicated workstation. Precontrast images of the brain were also obtained. Measurements are performed according to NASCET criteria. DOSE REDUCTION: Dose modulation, iterative reconstruction, and/or weight-based adjustment of the mA/kV was utilized to reduce the radiation dose to as low as reasonably achievable. FINDINGS: NECT BRAIN: Midline structures and posterior fossa within normal limits.No subacute territorial infarction or hyperdense thrombus.No acute intracranial hemorrhage.No acute hydrocephalus. Intact calvarium.Symmetric globes.The paranasal sinuses and mastoid air cells are well aerated. CTA NECK:On the right, there is no significant atherosclerotic plaque at the CCA bifurcation. No flow limiting stenosis or dissection.On the left, there is no significant atherosclerotic plaque at the CCA bifurcation. No flow limiting stenosis or dissection.Right dominant vertebral artery system. No flow limiting stenosis of vertebral arteries. Nonvascular findings:No acute osseous abnormality.No adenopathy. Patent aerodigestive tract.No apical consolidation or pneumothorax. CTA BRAIN:No flow limiting stenosis, large vessel occlusion, or aneurysm of the anterior circulation.No flow limiting stenosis, large vessel occlusion, or aneurysm of the posterior circulation.Major venous sinuses opacify normally on this suboptimal exam for these structures.IMPRESSION:No acute intracranial abnormality.Unremarkable CTA of the head and neck. Signed: Param Tinajero MDReport Verified Date/Time: 04/21/2017 02:51:51 Reading Location: [place] [id number] ConsultReading Room N [id number] 02:01:00 Test Item Value Reference Range Interpretation Comments TROPONIN I (BEAKER) (test code = 0.48 ng/mL 0.00-0.03 [facility]) Troponin I (TnI) levels must be interpreted in the context of the presenting symptoms and the clinical findings. Elevated TnI levels indicate myocardial damage, but are not specific for ischemic heart disease. Elevated TnI levels are seen in patients with other cardiac conditions (including myocarditis and congestive heart failure), and slight TnI elevations occur in patients with other conditions, including sepsis, renal failure, acidosis, acute neurological disease, and persistent tachyarrhythmia.HEMOGLOBIN AND [id number] 22:00:00 Test Item Value Reference Range Interpretation Comments HEMOGLOBIN (BEAKER) (test code = 13.6 GM/DL 11.2-15.7 410) HEMATOCRIT (BEAKER) (test code = 41.1 % 34.1-44.9 411) Post transfusionTROPONIN [id number] 19:46:00 Test Item Value Reference Range Interpretation Comments TROPONIN I (BEAKER) (test code = 0.93 ng/mL 0.00-0.03 [facility] 397) Troponin I (TnI) levels must be interpreted in the context of the presenting symptoms and the clinical findings. Elevated TnI levels indicate myocardial damage, but are not specific for ischemic heart disease. Elevated TnI levels are seen in patients with other cardiac conditions (including myocarditis and congestive heart failure), and slight TnI elevations occur in patients with other conditions, including sepsis, renal failure, acidosis, acute neurological disease, and persistent tachyarrhythmia.B-TYPE NATRIURETIC FACTOR (BNP) 2017-04-20 19:42:00 Test Item Value Reference Range Interpretation Comments B-TYPE NATRIURETIC PEPTIDE 1314 pg/mL 0-100 H (BEAKER) (test code = 700) BASIC METABOLIC [id number] 19:33:00 Test Item Value Reference Range Interpretation Comments SODIUM (BEAKER) 141 meq/L 136-145 (test code = 381) POTASSIUM (BEAKER) 4.1 meq/L 3.5-5.1 (test code = 379) CHLORIDE (BEAKER) 110 meq/L 98-107 H (test code = 382) CO2 (BEAKER) (test 21 meq/L 22-29 L code = 355) BLOOD UREA NITROGEN 16 mg/dL 7-21 (BEAKER) (test code = 354) CREATININE (BEAKER) 0.76 mg/dL 0.57-1.25 (test code = 358) GLUCOSE RANDOM 100 mg/dL 70-105 (BEAKER) (test code = 652) CALCIUM (BEAKER) 9.2 mg/dL 8.4-10.2 (test code = 697) EGFR (BEAKER) (test 95 mL/min/1.73 ESTIMA ANDREAS GFR IS code = 1092) sq m NOT ACCURATE CREATININE CLEARANCE IN PREDICTING GLOMERULAR FILTRATION RATE . ESTIMATED GFR I S NOT APPLICABLE FOR DIALYSIS PATIEN TS. CBC W/PLT COUNT & AUTO [id number] 19:19:00 Test Item Value Reference Range Interpretation Comments WHITE BLOOD CELL COUNT (BEAKER) 5.6 K/ L 3.5-10.5 (test code = 775) RED BLOOD CELL COUNT (BEAKER) 4.38 M/ L 3.93-5.22 (test code = 761) HEMOGLOBIN (BEAKER) (test code = 12.8 GM/DL 11.2-15.7 410) HEMATOCRIT (BEAKER) (test code = 38.5 % 34.1-44.9 411) MEAN CORPUSCULAR VOLUME (BEAKER) 87.9 fL 79.4-94.8 (test code = 753) MEAN CORPUSCULAR HEMOGLOBIN 29.2 pg 25.6-32.2 (BEAKER) (test code = 751) MEAN CORPUSCULAR HEMOGLOBIN CONC 33.2 GM/DL 32.2-35.5 (BEAKER) (test code = 752) RED CELL DISTRIBUTION WIDTH 13.0 % 11.7-14.4 (BEAKER) (test code = 412) PLATELET COUNT (BEAKER) (test 143 K/CU MM 150-450 L code = 756) MEAN PLATELET VOLUME (BEAKER) 11.2 fL 9.4-12.3 (test code = 754) NUCLEATED RED BLOOD CELLS 0 /100 WBC 0-0 (BEAKER) (test code = 413) NEUTROPHILS RELATIVE PERCENT 69 % (BEAKER) (test code = 429) LYMPHOCYTES RELATIVE PERCENT 21 % (BEAKER) (test code = 430) MONOCYTES RELATIVE PERCENT 5 % (BEAKER) (test code = 431) EOSINOPHILS RELATIVE PERCENT 5 % (BEAKER) (test code = 432) BASOPHILS RELATIVE PERCENT 1 % (BEAKER) (test code = 437) NEUTROPHILS ABSOLUTE COUNT 3.82 K/ L 1.56-6.13 (BEAKER) (test code = 670) LYMPHOCYTES ABSOLUTE COUNT 1.16 K/ L 1.18-3.74 L (BEAKER) (test code = 414) MONOCYTES ABSOLUTE COUNT (BEAKER) 0.27 K/ L 0.24-0.36 (test code = 415) EOSINOPHILS ABSOLUTE COUNT 0.27 K/ L 0.04-0.36 (MICHAEL) (test code = 416) BASOPHILS ABSOLUTE COUNT (MICHAEL) 0.03 K/ L 0.01-0.08 (test code = 417) IMMATURE GRANULOCYTES-RELATIVE 0 % 0-1 PERCENT (MICHAEL) (test code = 2801) POCT-GLUCOSE [id number] 18:20:00 Test Item Value Reference Range Interpretation Comments POC-GLUCOSE METER 116 mg/dL 70-110 H TESTED AT [facility] 6720 (MICHAEL) (test code = RICHARD Vaughn [facility] 1538) [id number] TROPONIN [id number] 17:09:00 Test Item Value Reference Range Interpretation Comments TROPONIN I (MICHAEL) (test code = 0.62 ng/mL 0.00-0.03 HH 397) Troponin I (TnI) levels must be interpreted in the context of the presenting symptoms and the clinical findings. Elevated TnI levels indicate myocardial damage, but are not specific for ischemic heart disease. Elevated TnI levels are seen in patients with other cardiac conditions (including myocarditis and congestive heart failure), and slight TnI elevations occur in patients with other conditions, including sepsis, renal failure, acidosis, acute neurological disease, and persistent tachyarrhythmia.RAD, CHEST, 1 VIEW, NON [id number] 16:45:00Reason for exam:->NEUROLOGIC PROBLEMShould this be performed at the bedside?->YesFINAL REPORT TECHNIQUE: Frontal view of the chest. INDICATION: 56-year-old woman with neurologic problem. COMPARISON: Chest radiograph from 01/22/2017. FINDINGS: LINES/TUBES: Unchanged implanted cardiac device in the left chest with intact leads. LUNGS: Central pulmonary venous pino estion with interstitial opacities bilaterally. PLEURA: Questionable trace bilateral pleural effusions. No pneumothorax. HEART AND MEDIASTINUM: The cardiomediastinal silhouette is enlarged, but unchanged. SOFT TISSUES AND BONES: Unremarkable. IMPRESSION:Central pulmonary venous congestion with interstitial edema. Signed: Clara Sevilla Verified Date/Time: 04/20/2017 16:45:43 Reading Location: [address] Body Reading Room 04:45 PMCBC W/PLT COUNT & AUTO [id number] 16:11:00 Test Item Value Reference Range Interpretation Comments WHITE BLOOD CELL COUNT (BEAKER) 2.4 K/ L 3.5-10.5 L (test code = 775) RED BLOOD CELL COUNT (BEAKER) 2.08 M/ L 3.93-5.22 L (test code = 761) HEMOGLOBIN (BEAKER) (test code = 6.2 GM/DL 11.2-15.7 L 410) HEMATOCRIT (BEAKER) (test code = 19.4 % 34.1-44.9 L 411) MEAN CORPUSCULAR VOLUME (BEAKER) 93.3 fL 79.4-94.8 (test code = 753) MEAN CORPUSCULAR HEMOGLOBIN 29.8 pg 25.6-32.2 (BEAKER) (test code = 751) MEAN CORPUSCULAR HEMOGLOBIN CONC 32.0 GM/DL 32.2-35.5 L (BEAKER) (test code = 752) RED CELL DISTRIBUTION WIDTH 13.2 % 11.7-14.4 (BEAKER) (test code = 412) PLATELET COUNT (BEAKER) (test code 80 K/CU MM 150-450 L = 756) MEAN PLATELET VOLUME (BEAKER) 11.6 fL 9.4-12.3 (test code = 754) NUCLEATED RED BLOOD CELLS (BEAKER) 0 /100 WBC 0-0 (test code = 413) NEUTROPHILS RELATIVE PERCENT 59 % (BEAKER) (test code = 429) LYMPHOCYTES RELATIVE PERCENT 27 % (BEAKER) (test code = 430) MONOCYTES RELATIVE PERCENT 7 % (BEAKER) (test code = 431) EOSINOPHILS RELATIVE PERCENT 7 % (BEAKER) (test code = 432) BASOPHILS RELATIVE PERCENT 0 % (BEAKER) (test code = 437) NEUTROPHILS ABSOLUTE COUNT 1.39 K/ L 1.56-6.13 L (BEAKER) (test code = 670) LYMPHOCYTES ABSOLUTE COUNT 0.64 K/ L 1.18-3.74 L (BEAKER) (test code = 414) MONOCYTES ABSOLUTE COUNT (BEAKER) 0.17 K/ L 0.24-0.36 L (test code = 415) EOSINOPHILS ABSOLUTE COUNT 0.16 K/ L 0.04-0.36 (BEAKER) (test code = 416) BASOPHILS ABSOLUTE COUNT (BEAKER) 0.01 K/ L 0.01-0.08 (test code = 417) IMMATURE GRANULOCYTES-RELATIVE 0 % 0-1 PERCENT (BEAKER) (test code = 2803) CREATINE KINASE (CK), TOTAL AND [id number] 16:01:00 Test Item Value Reference Range Interpretation Comments CREATINE KINASE TOTAL (BEAKER) 100 U/L 29-200 (test code = 380) CREATINE KINASE-MB (BEAKER) (test 1.7 ng/mL 0.0-6.6 code = 750) CREATINE KINASE-MB INDEX (BEAKER) 1.7 % (test code = 395) CK-MB Reference Range:<6.7 Normal6.7-10.0 Borderline>10.0 AbnormalBASIC METABOLIC [id number] 15:54:00 Test Item Value Reference Range Interpretation Comments SODIUM (BEAKER) 139 meq/L 136-145 (test code = 381) POTASSIUM (BEAKER) 4.8 meq/L 3.5-5.1 Specimen moderately (test code = 379) hemolyzed CHLORIDE (BEAKER) 110 meq/L 98-107 H (test code = 382) CO2 (BEAKER) (test 20 meq/L 22-29 L code = 355) BLOOD UREA NITROGEN 18 mg/dL 7-21 (BEAKER) (test code = 354) CREATININE (BEAKER) 0.79 mg/dL 0.57-1.25 Specimen moderately (test code = 358) hemolyzed GLUCOSE RANDOM 111 mg/dL 70-105 H (BEAKER) (test code = 652) CALCIUM (BEAKER) 9.3 mg/dL 8.4-10.2 (test code = 697) EGFR (BEAKER) (test 91 mL/min/1.73 ESTIMA ANDREAS GFR IS code = 1092) sq m NOT ACCURATE CREATININE CLEARANCE IN PREDICTING GLOMERULAR FILTRATION RATE . ESTIMATED GFR I S NOT APPLICABLE FOR DIALYSIS PATIEN TS. [id number] 15:48:00 Test Item Value Reference Range Interpretation Comments PROTIME (BEAKER) (test code = 15.0 seconds 11.7-14.7 H 759) INR (BEAKER) (test code = 370) 1.2 <=5.9 PARTIAL THROMBOPLASTIN TIME 30.3 seconds 22.5-36.0 (BEAKER) (test code = 760) RECOMMENDED COUMADIN/WARFARIN INR THERAPY RANGESSTANDARD DOSE: 2.0 - 3.0 Includes: PROPHYLAXIS for venous thrombosis, systemic embolization; TREATMENT for venous thrombosis and/or pulmonary embolus.HIGH RISK: Target INR is 2.5-3.5 for patients with mechanical heart valves.CT, BRAIN/STROKE [id number] 15:16:00Reason for exam:->stroke protocolIs the patient ?->NoWhat is the patient's sedation requirement?->No SedationFINAL REPORT CT head without contrast. Comparisons: No Reason for exam: Neuro de ficit(s), subacutestroke protocol. Discussion: Multiple axial CT images of the head are provided without contrast evaluated in brain and bone windows. Dose modulation, iterative reconstruction, and/or weight based adjustment of the mA/kV was utilized to reduce the radiation dose to as low as reasonably achievable. Imaging discussed with the stroke team neurology resident 1315 hours. There is no CT evidence of intracranial hemorrhage, mass-effect, hydrocephalus, shift, or extra-axial collections. Thevisualized dural sinus regions, orbital contents, paranasal sinuses, bones and surrounding soft tissues are unremarkable. Impressions: 1. No specific evidence of acute intracranial abnormality. Signed:Tan Lewis Verified Date/Time: 04/20/2017 15:16:16 Reading Location: [address] Reading Room B-TYPE NATRIURETIC FACTOR (BNP)2017-02-04 14:31:00 Test Item Value Reference Range Interpretation Comments B-TYPE NATRIURETIC PEPTIDE (BEAKER) 729 pg/mL 0-100 H (test code = 700) [id number] 14:22:00 Test Item Value Reference Range Interpretation Comments MAGNESIUM (BEAKER) (test code = 1.5 mg/dL 1.6-2.6 L 627) BASIC METABOLIC [id number] 14:22:00 Test Item Value Reference Range Interpretation Comments SODIUM (BEAKER) 142 meq/L 136-145 (test code = 381) POTASSIUM (BEAKER) 4.3 meq/L 3.5-5.1 (test code = 379) CHLORIDE (BEAKER) 107 meq/L 98-107 (test code = 382) CO2 (BEAKER) (test 28 meq/L 22-29 code = 355) BLOOD UREA NITROGEN 14 mg/dL 7-21 (BEAKER) (test code = 354) CREATININE (BEAKER) 0.84 mg/dL 0.57-1.25 (test code = 358) GLUCOSE RANDOM 71 mg/dL 70-105 (BEAKER) (test code = 652) CALCIUM (BEAKER) 9.3 mg/dL 8.4-10.2 (test code = 697) EGFR (BEAKER) (test 85 mL/min/1.73 ESTIMA ANDREAS GFR IS code = 1092) sq m NOT ACCURATE CREATININE CLEARANCE IN PREDICTING GLOMERULAR FILTRATION RATE . ESTIMATED GFR I S NOT APPLICABLE FOR DIALYSIS PATIEN TS. TISSUE [id number] 08:10:00Surgical Pathology Report Case: [id number] Authorizing Provider: Edna Shafer Collected: 01/23/2017 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 Signing Pathologist Direct Phone Line: [phone] signed by Mookie Palacios MD on 01/24/2017 at 8:10 [id number], [id number] gastric biopsyThe specimen is received in a formalin-filled container and labeled with the patient's information and labeled "random gastric biopsy" and consists of four fragments of fong-white soft tissue ranging from less than 0.1 to 0.3 cm, submitted entirely A1. CG/pl The following special studies were performed on this case and the interpretation is incorporated in the diagnostic report above:BLOCK A1- WARTHIN STARRYMAGNESIUM 2017-01-24 06:36:00 Test Item Value Reference Range Interpretation Comments MAGNESIUM (BEAKER) (test code = 1.6 mg/dL 1.6-2.6 627) BASIC METABOLIC [id number] 06:36:00 Test Item Value Reference Range Interpretation Comments SODIUM (BEAKER) 141 meq/L 136-145 (test code = 381) POTASSIUM (BEAKER) 4.3 meq/L 3.5-5.1 (test code = 379) CHLORIDE (BEAKER) 108 meq/L 98-107 H (test code = 382) CO2 (BEAKER) (test 26 meq/L 22-29 code = 355) BLOOD UREA NITROGEN 11 mg/dL 7-21 (BEAKER) (test code = 354) CREATININE (BEAKER) 0.79 mg/dL 0.57-1.25 (test code = 358) GLUCOSE RANDOM 85 mg/dL 70-105 (BEAKER) (test code = 652) CALCIUM (BEAKER) 8.9 mg/dL 8.4-10.2 (test code = 697) EGFR (BEAKER) (test 91 mL/min/1.73 ESTIMA ANDREAS GFR IS code = 1092) sq m NOT ACCURATE CREATININE CLEARANCE IN PREDICTING GLOMERULAR FILTRATION RATE . ESTIMATED GFR I S NOT APPLICABLE FOR DIALYSIS PATIEN TS. HEPATIC FUNCTION [id number] 06:36:00 Test Item Value Reference Range Interpretation Comments TOTAL PROTEIN (BEAKER) (test code = 6.4 gm/dL 6.0-8.3 770) ALBUMIN (BEAKER) (test code = 1145) 3.3 g/dL 3.5-5.0 L BILIRUBIN TOTAL (BEAKER) (test code 0.7 mg/dL 0.2-1.2 = 377) BILIRUBIN DIRECT (BEAKER) (test 0.3 mg/dL 0.1-0.5 code = 706) ALKALINE PHOSPHATASE (BEAKER) (test 107 U/L 40-150 code = 346) AST (SGOT) (BEAKER) (test code = 32 U/L 5-34 353) ALT (SGPT) (BEAKER) (test code = 47 U/L 6-55 347) CBC W/PLT COUNT & AUTO [id number] 06:09:00 Test Item Value Reference Range Interpretation Comments WHITE BLOOD CELL COUNT (BEAKER) 4.3 K/ L 3.5-10.5 (test code = 775) RED BLOOD CELL COUNT (BEAKER) 4.04 M/ L 3.93-5.22 (test code = 761) HEMOGLOBIN (BEAKER) (test code = 11.7 GM/DL 11.2-15.7 410) HEMATOCRIT (BEAKER) (test code = 36.7 % 34.1-44.9 411) MEAN CORPUSCULAR VOLUME (BEAKER) 90.8 fL 79.4-94.8 (test code = 753) MEAN CORPUSCULAR HEMOGLOBIN 29.0 pg 25.6-32.2 (BEAKER) (test code = 751) MEAN CORPUSCULAR HEMOGLOBIN CONC 31.9 GM/DL 32.2-35.5 L (BEAKER) (test code = 752) RED CELL DISTRIBUTION WIDTH 13.2 % 11.7-14.4 (BEAKER) (test code = 412) PLATELET COUNT (BEAKER) (test 130 K/CU MM 150-450 L code = 756) MEAN PLATELET VOLUME (BEAKER) 11.5 fL 9.4-12.3 (test code = 754) NUCLEATED RED BLOOD CELLS 0 /100 WBC 0-0 (BEAKER) (test code = 413) NEUTROPHILS RELATIVE PERCENT 55 % (BEAKER) (test code = 429) LYMPHOCYTES RELATIVE PERCENT 30 % (BEAKER) (test code = 430) MONOCYTES RELATIVE PERCENT 8 % (BEAKER) (test code = 431) EOSINOPHILS RELATIVE PERCENT 7 % (BEAKER) (test code = 432) BASOPHILS RELATIVE PERCENT 1 % (BEAKER) (test code = 437) NEUTROPHILS ABSOLUTE COUNT 2.37 K/ L 1.56-6.13 (BEAKER) (test code = 670) LYMPHOCYTES ABSOLUTE COUNT 1.27 K/ L 1.18-3.74 (BEAKER) (test code = 414) MONOCYTES ABSOLUTE COUNT (BEAKER) 0.36 K/ L 0.24-0.36 (test code = 415) EOSINOPHILS ABSOLUTE COUNT 0.28 K/ L 0.04-0.36 (BEAKER) (test code = 416) BASOPHILS ABSOLUTE COUNT (BEAKER) 0.02 K/ L 0.01-0.08 (test code = 417) IMMATURE GRANULOCYTES-RELATIVE 0 % 0-1 PERCENT (BEAKER) (test code = 2801) TROPONIN [id number] 12:59:00 Test Item Value Reference Range Interpretation Comments TROPONIN I (BEAKER) (test code = 397) < ng/mL 0.00-0.03 Troponin I (TnI) levels must be interpreted in the context of the presenting symptoms and the clinical findings. Elevated TnI levels indicate myocardial damage, but are not specific for ischemic heart disease. Elevated TnI levels are seen in patients with other cardiac conditions (including myocarditis and congestive heart failure), and slight TnI elevations occur in patients with other conditions, including sepsis, renal failure, acidosis, acute neurological disease, and persistent tachyarrhythmia.CT, CHEST WITH IV CONTRAST- PE TEST [id number] 04:20:00FINAL REPORT EXAMINATION: CHEST CT / PE PROTOCOL CLINICAL HISTORY: CHEST PAIN, SHORTNESS OF BREATH TECHNIQUE: Following the administration of I.V. contrast, axial images were acquired through the pulmonary arteries during the early arterial phase of imaging. Following a brief delay, additional axial tomographic images were acquired through the thorax. Following postprocessing, coronal and sagittal reformatted images were created and reviewed. The exam was performed according to our departmental dose optimization program which includes automated exposure control, adjustment of the mA and/or kV according to patient's size and/or use of iterative reconstructive technique. FINDINGS: Compared with abdominal CT performed June 19, 2016. The lobes of the thyroid gland are associated with multiple nonspecific nodules. No evidence of a discrete filling defect/embolus within the pulmonary arteries. The thoracic aorta is normal in caliber. No evidence of an aortic dissection. The heartis enlarged with a dilated left ventricle and left atrium. The cardiac enlargement appears to have increased in the interval. No evidence of a pericardial effusion. The esophagus is decompressed. No evidence of pathologic lymphadenopathy. Trachea and central airways are unremarkable. There are small bilateral pleural effusions. Curvilinear opacities at the lung bases are morphologically suggestive of atelectasis. No definite evidence of edema, pneumothorax or pneumomediastinum. The patient is statuspost placement of a left subclavian AICD. Limited images of the upper abdomen demonstrate trace pneumobilia, similar to the prior study. A small stable hypodensity is again noted along the dorsal aspect of the spleen grossly similar in size and shape allowing for differences in technique. No evidence of an acute osseous abnormality. IMPRESSION: No evidence of a PE. Enlarged heart. Small bilateral pleural effusions. Dependent lung opacities, atelectasis favored. Multiple bilateral thyroid nodules, possible goiter. More aggressive neoplastic process cannot be excluded. Otolaryngology follow-up and ultrasound recommended. Signed: Quinten Nicole MDReport Verified Date/Time: 01/23/2017 04:20:53 Reading Location: [address] Reading Room TROPONIN I 2017-01-23 03:28:00 Test Item Value Reference Range Interpretation Comments TROPONIN I (BEAKER) (test code = 397) < ng/mL 0.00-0.03 Troponin I (TnI) levels must be interpreted in the context of the presenting symptoms and the clinical findings. Elevated TnI levels indicate myocardial damage, but are not specific for ischemic heart disease. Elevated TnI levels are seen in patients with other cardiac conditions (including myocarditis and congestive heart failure), and slight TnI elevations occur in patients with other conditions, including sepsis, renal failure, acidosis, acute neurological disease, and persistent tachyarrhythmia.[id number] 03:22:00 Test Item Value Reference Range Interpretation Comments MAGNESIUM (BEAKER) (test code = 1.6 mg/dL 1.6-2.6 627) BASIC METABOLIC [id number] 03:22:00 Test Item Value Reference Range Interpretation Comments SODIUM (BEAKER) 140 meq/L 136-145 (test code = 381) POTASSIUM (BEAKER) 3.4 meq/L 3.5-5.1 L (test code = 379) CHLORIDE (BEAKER) 105 meq/L 98-107 (test code = 382) CO2 (BEAKER) (test 28 meq/L 22-29 code = 355) BLOOD UREA NITROGEN 10 mg/dL 7-21 (BEAKER) (test code = 354) CREATININE (BEAKER) 0.79 mg/dL 0.57-1.25 (test code = 358) GLUCOSE RANDOM 82 mg/dL 70-105 (BEAKER) (test code = 652) CALCIUM (BEAKER) 9.0 mg/dL 8.4-10.2 (test code = 697) EGFR (BEAKER) (test 91 mL/min/1.73 ESTIMA ANDREAS GFR IS code = 1092) sq m NOT ACCURATE CREATININE CLEARANCE IN PREDICTING GLOMERULAR FILTRATION RATE . ESTIMATED GFR I S NOT APPLICABLE FOR DIALYSIS PATIEN TS. HEPATIC FUNCTION [id number] 03:22:00 Test Item Value Reference Range Interpretation Comments TOTAL PROTEIN (BEAKER) (test code = 6.7 gm/dL 6.0-8.3 770) ALBUMIN (BEAKER) (test code = 1145) 3.7 g/dL 3.5-5.0 BILIRUBIN TOTAL (BEAKER) (test code 1.1 mg/dL 0.2-1.2 = 377) BILIRUBIN DIRECT (BEAKER) (test 0.4 mg/dL 0.1-0.5 code = 706) ALKALINE PHOSPHATASE (BEAKER) (test 114 U/L 40-150 code = 346) AST (SGOT) (BEAKER) (test code = 49 U/L 5-34 H 353) ALT (SGPT) (BEAKER) (test code = 65 U/L 6-55 H 347) CBC W/PLT COUNT & AUTO [id number] 03:04:00 Test Item Value Reference Range Interpretation Comments WHITE BLOOD CELL COUNT (BEAKER) 4.0 K/ L 3.5-10.5 (test code = 775) RED BLOOD CELL COUNT (BEAKER) 4.19 M/ L 3.93-5.22 (test code = 761) HEMOGLOBIN (BEAKER) (test code = 12.1 GM/DL 11.2-15.7 410) HEMATOCRIT (BEAKER) (test code = 37.8 % 34.1-44.9 411) MEAN CORPUSCULAR VOLUME (BEAKER) 90.2 fL 79.4-94.8 (test code = 753) MEAN CORPUSCULAR HEMOGLOBIN 28.9 pg 25.6-32.2 (BEAKER) (test code = 751) MEAN CORPUSCULAR HEMOGLOBIN CONC 32.0 GM/DL 32.2-35.5 L (BEAKER) (test code = 752) RED CELL DISTRIBUTION WIDTH 13.3 % 11.7-14.4 (BEAKER) (test code = 412) PLATELET COUNT (BEAKER) (test 128 K/CU MM 150-450 L code = 756) MEAN PLATELET VOLUME (BEAKER) 11.3 fL 9.4-12.3 (test code = 754) NUCLEATED RED BLOOD CELLS 0 /100 WBC 0-0 (BEAKER) (test code = 413) NEUTROPHILS RELATIVE PERCENT 49 % (BEAKER) (test code = 429) LYMPHOCYTES RELATIVE PERCENT 35 % (BEAKER) (test code = 430) MONOCYTES RELATIVE PERCENT 8 % (BEAKER) (test code = 431) EOSINOPHILS RELATIVE PERCENT 7 % (BEAKER) (test code = 432) BASOPHILS RELATIVE PERCENT 1 % (BEAKER) (test code = 437) NEUTROPHILS ABSOLUTE COUNT 1.96 K/ L 1.56-6.13 (BEAKER) (test code = 670) LYMPHOCYTES ABSOLUTE COUNT 1.40 K/ L 1.18-3.74 (BEAKER) (test code = 414) MONOCYTES ABSOLUTE COUNT (BEAKER) 0.33 K/ L 0.24-0.36 (test code = 415) EOSINOPHILS ABSOLUTE COUNT 0.29 K/ L 0.04-0.36 (BEAKER) (test code = 416) BASOPHILS ABSOLUTE COUNT (BEAKER) 0.02 K/ L 0.01-0.08 (test code = 417) IMMATURE GRANULOCYTES-RELATIVE 0 % 0-1 PERCENT (BEAKER) (test code = 2801) U/S, ABDOMINAL, [id number] 22:41:00Abdomen limited area? Add comment if clarification is needed.->Right upper quadrantReason for exam:->elevated LFTsFINAL REPORT History: Elevated liver function tests. No comparisons are available. Real-time sonographic examination of the right upper quadrant of the abdomen demonstrates a normal size liver measuring up to 11.8 cm in length. Hepatic echotexture is mildly and diffusely increased, likely representing diffuse fatty infiltration. There are no sonographically detectable masses or focal intrahepatic abnormalities identified. The gallbladder is absent, consistent with prior cholecystectomy. The extra hepatic common bile duct is slightly prominent for the patient's stated age measuring up to 7.5 mm in diameter. This is likely related to prior history of cholecystectomy. No intrahepatic biliary ductal dilatation or visible intraductal stones. The portal vein is patent by Limited color Doppler examination and measures 8 mm in diameter. The right kidney is normal size and echogenicity measuring up to 9.5 x 4.1 x 4.9 cm in greatest dimensions. There are no visible masses, cysts, stones or evidence for obstruction. The pancreas is incompletely imaged secondary to overlying bowel gas. Aorta and IVC are unremarkable. A trace amount of ascites is present. A tiny right pleural effusionis also noted. IMPRESSION: 1. Probable mild diffuse fatty infiltration liver. 2. Status post cholecystectomy with a slightly prominent common bile duct, likely related to the surgical history. No acutebiliary abnormalities are identified. 3. Incomplete evaluation of the pancreas. 4. Trace abdominal ascites and a small right pleural effusion. Signed: Tan Gonzalesort Verified Date/Time: 01/22/2017 22:41:22 Reading Location: [address] Consult Reading Room TROPONIN [id number] 21:49:00 Test Item Value Reference Range Interpretation Comments TROPONIN I (BEAKER) (test code = 0.01 ng/mL 0.00-0.03 397) Troponin I (TnI) levels must be interpreted in the context of the presenting symptoms and the clinical findings. Elevated TnI levels indicate myocardial damage, but are not specific for ischemic heart disease. Elevated TnI levels are seen in patients with other cardiac conditions (including myocarditis and congestive heart failure), and slight TnI elevations occur in patients with other conditions, including sepsis, renal failure, acidosis, acute neurological disease, and persistent tachyarrhythmia.HEPATITIS PANEL, [id number] 14:36:00 Test Item Value Reference Range Interpretation Comments HEPATITIS A IGM ANTIBODY (BEAKER) Nonreactive Nonreactive (test code = 498) HEPATITIS B CORE IGM ANTIBODY Nonreactive Nonreactive (BEAKER) (test code = 645) HEPATITIS C ANTIBODY (BEAKER) Nonreactive Nonreactive (test code = 367) HEPATITIS B SURFACE ANTIGEN (2) Nonreactive Nonreactive (BEAKER) (test code = 2585) HEMOGLOBIN [id number] 13:47:00 Test Item Value Reference Range Interpretation Comments HEMOGLOBIN A1C (BEAKER) (test code = 4.8 % 4.3-6.1 368) [id number] 13:39:00 Test Item Value Reference Range Interpretation Comments MAGNESIUM (BEAKER) 1.3 mg/dL 1.6-2.6 L Specimen slightly (test code = 627) hemolyzed [id number] 12:56:00 Test Item Value Reference Range Interpretation Comments D-DIMER QUANTITATIVE (BEAKER) 2.79 MG/L FEU <0.50 H (test code = 671) Intended Use: The D-Dimer Assay can be used to aid in the diagnosis of Deep Vein Thrombosis (DVT) and Pulmonary Embolism Disease (PED).In patients with low pre- test probability, various studies concerning STA Liatest D-dimer test have reported that with a cutoff value of 0.50 MG/L FEU, the Negative Predictive Value (NPV) regarding the exclusion of thrombosis is within 95-100% range.RAD, CHEST, PA OR AP, 1 [id number] 09:27:00Reason for exam:->CHEST PAINReason for exam:->ABDOMINAL PAINReason for exam:->SHORTNESS OF BREATHIs the patient ?->NoShould this be performed at the bedside?->NoFINAL REPORT Chest one view. Clinical history: CHEST PAINABDOMINAL PAINSHORTNESS OF BREATH Comparison: June 19, 2016 Discussion: A frontal chest is provided. Cardiac silhouette is enlarged. There is a left-sided ICD and pacemaker device in stable position. There is mild degree of vascular prominence. Interstitial edema appears new, most notably in the lower lung zones. No discrete consolidation is identified. No pneumothorax, or large effusion. Osseous structures demonstrate mild degenerative changes. Signed: Mamie Freeman Verified Date/Time: 01/22/2017 09:27:16 Reading Location: [facility] Radiology Reading Room B-TYPE NATRIURETIC FACTOR (BNP)2017-01-22 08:29:00 Test Item Value Reference Range Interpretation Comments B-TYPE NATRIURETIC PEPTIDE (BEAKER) 886 pg/mL 0-100 H (test code = 700) CREATINE KINASE (CK), TOTAL AND [id number] 08:27:00 Test Item Value Reference Range Interpretation Comments CREATINE KINASE TOTAL (BEAKER) 115 U/L 29-200 (test code = 380) CREATINE KINASE-MB (BEAKER) (test 1.7 ng/mL 0.0-6.6 code = 750) CREATINE KINASE-MB INDEX (BEAKER) 1.5 % (test code = 395) CK-MB Reference Range:<6.7 Normal6.7-10.0 Borderline>10.0 Abnormal TROPONIN [id number] 08:27:00 Test Item Value Reference Range Interpretation Comments TROPONIN I (BEAKER) (test code = 397) < ng/mL 0.00-0.03 Troponin I (TnI) levels must be interpreted in the context of the presenting symptoms and the clinical findings. Elevated TnI levels indicate myocardial damage, but are not specific for ischemic heart disease. Elevated TnI levels are seen in patients with other cardiac conditions (including myocarditis and congestive heart failure), and slight TnI elevations occur in patients with other conditions, including sepsis, renal failure, acidosis, acute neurological disease, and persistent tachyarrhythmia.[id number] 08:26:00 Test Item Value Reference Range Interpretation Comments PROTIME (BEAKER) (test code = 14.6 seconds 11.7-14.7 759) INR (BEAKER) (test code = 370) 1.2 <=5.9 PARTIAL THROMBOPLASTIN TIME 28.9 seconds 22.5-36.0 (BEAKER) (test code = 760) RECOMMENDED COUMADIN/WARFARIN INR THERAPY RANGESSTANDARD DOSE: 2.0 - 3.0 Includes: PROPHYLAXIS for venous thrombosis, systemic embolization; TREATMENT for venous thrombosis and/or pulmonary embolus.HIGH RISK: Target INR is 2.5-3.5 for patients with mechanical heart valves.[id number] 08:19:00 Test Item Value Reference Range Interpretation Comments LIPASE (BEAKER) (test code = 749) 17 U/L 8-78 BASIC METABOLIC [id number] 08:19:00 Test Item Value Reference Range Interpretation Comments SODIUM (BEAKER) 141 meq/L 136-145 (test code = 381) POTASSIUM (BEAKER) 4.4 meq/L 3.5-5.1 Specimen slightly (test code = 379) hemolyzed CHLORIDE (BEAKER) 111 meq/L 98-107 H (test code = 382) CO2 (BEAKER) (test 20 meq/L 22-29 L code = 355) BLOOD UREA NITROGEN 15 mg/dL 7-21 (BEAKER) (test code = 354) CREATININE (BEAKER) 0.71 mg/dL 0.57-1.25 Specimen slightly (test code = 358) hemolyzed GLUCOSE RANDOM 100 mg/dL 70-105 (BEAKER) (test code = 652) CALCIUM (BEAKER) 9.3 mg/dL 8.4-10.2 (test code = 697) EGFR (BEAKER) (test 103 mL/min/1.73 ESTIM ATED GFR IS code = 1092) sq m NOT ACCURATE CREATININE CLEARANCE IN PREDICTING GLOMERULAR FILTRATION RATE . ESTIMATED GFR I S NOT APPLICABLE FOR DIALYSIS PATIEN TS. HEPATIC FUNCTION [id number] 08:19:00 Test Item Value Reference Range Interpretation Comments TOTAL PROTEIN (BEAKER) 6.9 gm/dL 6.0-8.3 Speci men slightly (test code = 770) hemolyzed ALBUMIN (BEAKER) (test 3.6 g/dL 3.5-5.0 Speci men slightly code = 1145) hemolyzed BILIRUBIN TOTAL 0.8 mg/dL 0.2-1.2 Specimen sli ghtly (BEAKER) (test code = hemoly zed 377) BILIRUBIN DIRECT 0.2 mg/dL 0.1-0.5 Specimen sl ightly (BEAKER) (test code = hemoly zed 706) ALKALINE PHOSPHATASE 113 U/L 40-150 (BEAKER) (test code = 346) AST (SGOT) (BEAKER) 96 U/L 5-34 H Specimen slightly (test code = 353) hemolyzed ALT (SGPT) (BEAKER) 83 U/L 6-55 H Specimen slightly (test code = 347) hemolyzed CBC W/PLT COUNT & AUTO [id number] 07:57:00 Test Item Value Reference Range Interpretation Comments WHITE BLOOD CELL COUNT (BEAKER) 4.4 K/ L 3.5-10.5 (test code = 775) RED BLOOD CELL COUNT (BEAKER) 4.05 M/ L 3.93-5.22 (test code = 761) HEMOGLOBIN (BEAKER) (test code = 11.8 GM/DL 11.2-15.7 410) HEMATOCRIT (BEAKER) (test code = 36.5 % 34.1-44.9 411) MEAN CORPUSCULAR VOLUME (BEAKER) 90.1 fL 79.4-94.8 (test code = 753) MEAN CORPUSCULAR HEMOGLOBIN 29.1 pg 25.6-32.2 (BEAKER) (test code = 751) MEAN CORPUSCULAR HEMOGLOBIN CONC 32.3 GM/DL 32.2-35.5 (BEAKER) (test code = 752) RED CELL DISTRIBUTION WIDTH 13.2 % 11.7-14.4 (BEAKER) (test code = 412) PLATELET COUNT (BEAKER) (test 139 K/CU MM 150-450 L code = 756) MEAN PLATELET VOLUME (BEAKER) 11.6 fL 9.4-12.3 (test code = 754) NUCLEATED RED BLOOD CELLS 0 /100 WBC 0-0 (BEAKER) (test code = 413) NEUTROPHILS RELATIVE PERCENT 68 % (BEAKER) (test code = 429) LYMPHOCYTES RELATIVE PERCENT 21 % (BEAKER) (test code = 430) MONOCYTES RELATIVE PERCENT 6 % (BEAKER) (test code = 431) EOSINOPHILS RELATIVE PERCENT 5 % (BEAKER) (test code = 432) BASOPHILS RELATIVE PERCENT 1 % (BEAKER) (test code = 437) NEUTROPHILS ABSOLUTE COUNT 2.95 K/ L 1.56-6.13 (BEAKER) (test code = 670) LYMPHOCYTES ABSOLUTE COUNT 0.90 K/ L 1.18-3.74 L (BEAKER) (test code = 414) MONOCYTES ABSOLUTE COUNT (BEAKER) 0.28 K/ L 0.24-0.36 (test code = 415) EOSINOPHILS ABSOLUTE COUNT 0.20 K/ L 0.04-0.36 (BEAKER) (test code = 416) BASOPHILS ABSOLUTE COUNT (BEAKER) 0.03 K/ L 0.01-0.08 (test code = 417) IMMATURE GRANULOCYTES-RELATIVE 0 % 0-1 PERCENT (BEAKER) (test code = 2801) TISSUE [id number] 11:19:00Surgical Pathology Report Case: [id number] Authorizing Provider: Kenny Pagan MD Ordering Provider: Kenny Pagan MD Ordering Location: [facility] Collected: 06/21/2016 1534 SERVICES Pathologist: Xi Keita Received: 06/24/2016 0734 Specimen: Other, lap band removal for ID LAP BAND REMOVAL: - MEDICAL DEVICES IDENTIFIED(GROSS DIAGNOSIS) Signing Pathologist Direct Phone Line: [phone]/[id number] band removalThe specimen is received in a fluidless container labeled with the patient's information and labeled "lap band removal" and consists of a Port-A-Cath device measuring 2.5 x 2.5 x 1.4 cm with attached white tubing measuring 45 cm in length x 0.3 cm in diameter and a circular hardware measuring 4 x 3 x 1 cm. The Port-A-Cath's serial number is "[id number]). The specimen is submitted for gross identification. CG/ewPERIPHERAL BLOOD SMEAR - PATHOLOGIST [id number] 12:11:00 Test Item Value Reference Range Interpretation Comments RBC MORPHOLOGY Anisocytosis (BEAKER) (test code = 2846) RBC MORPHOLOGY Poikilocytosis (BEAKER) (test code = 05547) RBC MORPHOLOGY Spherocytes (BEAKER) (test code = 83087) RBC MORPHOLOGY Nucleated Red Blood (BEAKER) (test code = Cells 99297) WBC MORPHOLOGY Toxic Granulation (BEAKER) (test code = 2847) PLT MORPHOLOGY Unremarkable (BEAKER) (test code = 2848) PERIPHERAL SMR REVIEW Toxic changes in (BEAKER) (test code = granulocytes. 2640) Spherocytes and occasional nucleated red cells. No circulating blasts seen. [id number] Mookie Palacios, (BEAKER) (test code = M.D.(electronic 7498) signature) BASIC METABOLIC [id number] 05:46:00 Test Item Value Reference Range Interpretation Comments SODIUM (BEAKER) 139 meq/L 136-145 (test code = 381) POTASSIUM (BEAKER) 3.6 meq/L 3.5-5.1 (test code = 379) CHLORIDE (BEAKER) 108 meq/L 98-107 H (test code = 382) CO2 (BEAKER) (test 25 meq/L 22-29 code = 355) BLOOD UREA NITROGEN 4 mg/dL 7-21 L (BEAKER) (test code = 354) CREATININE (BEAKER) 0.67 mg/dL 0.57-1.25 (test code = 358) GLUCOSE RANDOM 78 mg/dL 70-105 (BEAKER) (test code = 652) CALCIUM (BEAKER) 8.2 mg/dL 8.4-10.2 L (test code = 697) EGFR (BEAKER) (test 110 mL/min/1.73 ESTIM ATED GFR IS code = 1092) sq m NOT ACCURATE CREATININE CLEARANCE IN PREDICTING GLOMERULAR FILTRATION RATE . ESTIMATED GFR I S NOT APPLICABLE FOR DIALYSIS PATIEN TS. CBC W/PLT COUNT & AUTO [id number] 05:58:00 Test Item Value Reference Range Interpretation Comments WHITE BLOOD CELL COUNT (BEAKER) 6.0 K/ L 4.0-10.0 (test code = 775) RED BLOOD CELL COUNT (BEAKER) 3.73 M/ L 4.00-5.00 L (test code = 761) HEMOGLOBIN (BEAKER) (test code = 11.3 GM/DL 12.0-15.0 L 410) HEMATOCRIT (BEAKER) (test code = 33.8 % 36.0-45.0 L 411) MEAN CORPUSCULAR VOLUME (BEAKER) 90.7 fL 82.0-99.0 (test code = 753) MEAN CORPUSCULAR HEMOGLOBIN 30.4 pg 27.0-33.0 (BEAKER) (test code = 751) MEAN CORPUSCULAR HEMOGLOBIN CONC 33.5 GM/DL 32.0-36.0 (BEAKER) (test code = 752) RED CELL DISTRIBUTION WIDTH 10.7 % 10.3-14.2 (BEAKER) (test code = 412) PLATELET COUNT (BEAKER) (test 145 K/CU MM 150-430 L code = 756) MEAN PLATELET VOLUME (BEAKER) 8.4 fL 6.5-10.5 (test code = 754) NUCLEATED RED BLOOD CELLS 0 /100 WBC 0-0 (BEAKER) (test code = 413) NEUTROPHILS RELATIVE PERCENT 83 % (BEAKER) (test code = 429) LYMPHOCYTES RELATIVE PERCENT 12 % (BEAKER) (test code = 430) MONOCYTES RELATIVE PERCENT 4 % (BEAKER) (test code = 431) EOSINOPHILS RELATIVE PERCENT 0 % (BEAKER) (test code = 432) BASOPHILS RELATIVE PERCENT 0 % (BEAKER) (test code = 437) NEUTROPHILS ABSOLUTE COUNT 4.95 K/ L 1.80-8.00 (BEAKER) (test code = 670) LYMPHOCYTES ABSOLUTE COUNT 0.72 K/ L 1.48-4.50 L (BEAKER) (test code = 414) MONOCYTES ABSOLUTE COUNT (BEAKER) 0.25 K/ L 0.00-1.30 (test code = 415) EOSINOPHILS ABSOLUTE COUNT 0.03 K/ L 0.00-0.50 (BEAKER) (test code = 416) BASOPHILS ABSOLUTE COUNT (BEAKER) 0.01 K/ L 0.00-0.20 (test code = 417) [id number] 05:57:00 Test Item Value Reference Range Interpretation Comments PHOSPHORUS (BEAKER) (test code = 2.8 mg/dL 2.3-4.7 604) [id number] 05:57:00 Test Item Value Reference Range Interpretation Comments MAGNESIUM (BEAKER) (test code = 1.4 mg/dL 1.6-2.6 L 627) BASIC METABOLIC [id number] 05:57:00 Test Item Value Reference Range Interpretation Comments SODIUM (BEAKER) 135 meq/L 136-145 L (test code = 381) POTASSIUM (BEAKER) 4.5 meq/L 3.5-5.1 (test code = 379) CHLORIDE (BEAKER) 108 meq/L 98-107 H (test code = 382) CO2 (BEAKER) (test 18 meq/L 22-29 L code = 355) BLOOD UREA NITROGEN 6 mg/dL 7-21 L (BEAKER) (test code = 354) CREATININE (BEAKER) 0.63 mg/dL 0.57-1.25 (test code = 358) GLUCOSE RANDOM 86 mg/dL 70-105 (BEAKER) (test code = 652) CALCIUM (BEAKER) 8.4 mg/dL 8.4-10.2 (test code = 697) EGFR (BEAKER) (test 118 mL/min/1.73 ESTIM ATED GFR IS code = 1092) sq m NOT ACCURATE CREATININE CLEARANCE IN PREDICTING GLOMERULAR FILTRATION RATE . ESTIMATED GFR I S NOT APPLICABLE FOR DIALYSIS PATIEN TS. VITAMIN B12 AND [id number] 16:26:00 Test Item Value Reference Range Interpretation Comments VITAMIN B12 (BEAKER) (test code = > pg/mL 213-816 H 774) FOLATE (BEAKER) (test code = 362) 15.5 ng/mL >=7.0 Effective 02/01/2014: Folate Reference Range ChangeNew: >=7.0 Previous: >=5.4Please add to already adelita AM labsCBC W/PLT COUNT & AUTO [id number] 08:23:00 Test Item Value Reference Range Interpretation Comments WHITE BLOOD CELL COUNT (BEAKER) 2.9 K/ L 4.0-10.0 L (test code = 775) RED BLOOD CELL COUNT (BEAKER) 3.62 M/ L 4.00-5.00 L (test code = 761) HEMOGLOBIN (BEAKER) (test code = 10.9 GM/DL 12.0-15.0 L 410) HEMATOCRIT (BEAKER) (test code = 32.3 % 36.0-45.0 L 411) MEAN CORPUSCULAR VOLUME (BEAKER) 89.2 fL 82.0-99.0 (test code = 753) MEAN CORPUSCULAR HEMOGLOBIN 30.0 pg 27.0-33.0 (BEAKER) (test code = 751) MEAN CORPUSCULAR HEMOGLOBIN CONC 33.6 GM/DL 32.0-36.0 (BEAKER) (test code = 752) RED CELL DISTRIBUTION WIDTH 11.9 % 10.3-14.2 (BEAKER) (test code = 412) PLATELET COUNT (BEAKER) (test 160 K/CU MM 150-430 code = 756) MEAN PLATELET VOLUME (BEAKER) 7.8 fL 6.5-10.5 (test code = 754) NUCLEATED RED BLOOD CELLS 0 /100 WBC 0-0 (BEAKER) (test code = 413) NEUTROPHILS RELATIVE PERCENT 34 % (BEAKER) (test code = 429) LYMPHOCYTES RELATIVE PERCENT 37 % (BEAKER) (test code = 430) MONOCYTES RELATIVE PERCENT 15 % (BEAKER) (test code = 431) EOSINOPHILS RELATIVE PERCENT 13 % (BEAKER) (test code = 432) BASOPHILS RELATIVE PERCENT 2 % (BEAKER) (test code = 437) NEUTROPHILS ABSOLUTE COUNT 0.98 K/ L 1.80-8.00 L (BEAKER) (test code = 670) LYMPHOCYTES ABSOLUTE COUNT 1.07 K/ L 1.48-4.50 L (BEAKER) (test code = 414) MONOCYTES ABSOLUTE COUNT (BEAKER) 0.42 K/ L 0.00-1.30 (test code = 415) EOSINOPHILS ABSOLUTE COUNT 0.37 K/ L 0.00-0.50 (BEAKER) (test code = 416) BASOPHILS ABSOLUTE COUNT (BEAKER) 0.05 K/ L 0.00-0.20 (test code = 417) 0.00(MANUAL DIFFERENTIAL)[id number] 08:23:00 Test Item Value Reference Range Interpretation Comments TOTAL COUNTED (BEAKER) (test code = 1351) WBC MORPHOLOGY (BEAKER) (test code = Normal 487) PLT MORPHOLOGY (BEAKER) (test code = Normal 486) RBC MORPHOLOGY (BEAKER) (test code = Normal 762) [id number] 07:32:00 Test Item Value Reference Range Interpretation Comments PHOSPHORUS (BEAKER) (test code = 2.8 mg/dL 2.3-4.7 604) [id number] 07:32:00 Test Item Value Reference Range Interpretation Comments MAGNESIUM (BEAKER) (test code = 2.1 mg/dL 1.6-2.6 627) BASIC METABOLIC [id number] 07:32:00 Test Item Value Reference Range Interpretation Comments SODIUM (BEAKER) 141 meq/L 136-145 (test code = 381) POTASSIUM (BEAKER) 4.1 meq/L 3.5-5.1 (test code = 379) CHLORIDE (BEAKER) 109 meq/L 98-107 H (test code = 382) CO2 (BEAKER) (test 23 meq/L 22-29 code = 355) BLOOD UREA NITROGEN 7 mg/dL 7-21 (BEAKER) (test code = 354) CREATININE (BEAKER) 0.66 mg/dL 0.57-1.25 (test code = 358) GLUCOSE RANDOM 78 mg/dL 70-105 (BEAKER) (test code = 652) CALCIUM (BEAKER) 8.7 mg/dL 8.4-10.2 (test code = 697) EGFR (BEAKER) (test 112 mL/min/1.73 ESTIM ATED GFR IS code = 1092) sq m NOT ACCURATE CREATININE CLEARANCE IN PREDICTING GLOMERULAR FILTRATION RATE . ESTIMATED GFR I S NOT APPLICABLE FOR DIALYSIS PATIEN TS. HEPATIC FUNCTION [id number] 07:32:00 Test Item Value Reference Range Interpretation Comments TOTAL PROTEIN (BEAKER) (test code = 6.1 gm/dL 6.0-8.3 770) ALBUMIN (BEAKER) (test code = 1145) 3.2 g/dL 3.5-5.0 L BILIRUBIN TOTAL (BEAKER) (test code 0.3 mg/dL 0.2-1.2 = 377) BILIRUBIN DIRECT (BEAKER) (test 0.2 mg/dL 0.1-0.5 code = 706) ALKALINE PHOSPHATASE (BEAKER) (test 59 U/L 40-150 code = 346) AST (SGOT) (BEAKER) (test code = 21 U/L 5-34 353) ALT (SGPT) (BEAKER) (test code = 11 U/L 6-55 347) SCREEN, [id number] 14:53:00 Test Item Value Reference Range Interpretation Comments TEST URINE (BEAKER) (test Negative code = 583) CREATINE KINASE (CK), TOTAL AND [id number] 14:16:00 Test Item Value Reference Range Interpretation Comments CREATINE KINASE TOTAL (BEAKER) 48 U/L 29-200 (test code = 380) CREATINE KINASE-MB (BEAKER) (test 0.4 ng/mL 0.0-6.6 code = 750) CREATINE KINASE-MB INDEX (BEAKER) 0.8 % (test code = 395) Effective 02/01/2014: CK-MB Reference Range ChangeNew: 0.0-6.6 Previous: 0.0-4.9CK-MB Reference Range:<6.7 Normal6.7-10.0 Borderline>10.0 Abnormal TROPONIN [id number] 14:16:00 Test Item Value Reference Range Interpretation Comments TROPONIN I (BEAKER) (test code = 397) < ng/mL 0.00-0.03 Effective 02/01/2014: Reference Range ChangeNew: 0.00-0.03 Previous 0.00- 0.15Troponin I (TnI) levelsmust be interpreted in the context of the presenting symptoms and the clinical findings. Elevated TnI levels indicate myocardial damage, but are not specific for ischemic heart disease. Elevated TnI levels are seen in patients with other cardiac conditions (including myocarditis and congestive heart failure), and slight TnI elevations occur in patients with other conditions, including sepsis, renal failure, acidosis, acute neurological disease, and persistent tachyarrhythmia.HEMOGLOBIN [id number] 11:46:00 Test Item Value Reference Range Interpretation Comments HEMOGLOBIN A1C (BEAKER) (test code = 4.9 % 4.3-6.1 368) TSH/FREE T4 IF [id number] 07:46:00 Test Item Value Reference Range Interpretation Comments THYROID STIMULATING HORMONE 1.97 uIU/mL 0.35-4.94 (BEAKER) (test code = 772) CBC W/PLT COUNT & AUTO [id number] 07:34:00 Test Item Value Reference Range Interpretation Comments WHITE BLOOD CELL COUNT (BEAKER) 3.7 K/ L 4.0-10.0 L (test code = 775) RED BLOOD CELL COUNT (BEAKER) 3.75 M/ L 4.00-5.00 L (test code = 761) HEMOGLOBIN (BEAKER) (test code = 11.4 GM/DL 12.0-15.0 L 410) HEMATOCRIT (BEAKER) (test code = 33.3 % 36.0-45.0 L 411) MEAN CORPUSCULAR VOLUME (BEAKER) 88.7 fL 82.0-99.0 (test code = 753) MEAN CORPUSCULAR HEMOGLOBIN 30.3 pg 27.0-33.0 (BEAKER) (test code = 751) MEAN CORPUSCULAR HEMOGLOBIN CONC 34.1 GM/DL 32.0-36.0 (BEAKER) (test code = 752) RED CELL DISTRIBUTION WIDTH 10.8 % 10.3-14.2 (BEAKER) (test code = 412) PLATELET COUNT (BEAKER) (test 152 K/CU MM 150-430 code = 756) MEAN PLATELET VOLUME (BEAKER) 8.0 fL 6.5-10.5 (test code = 754) NUCLEATED RED BLOOD CELLS 0 /100 WBC 0-0 (BEAKER) (test code = 413) NEUTROPHILS RELATIVE PERCENT 43 % (BEAKER) (test code = 429) LYMPHOCYTES RELATIVE PERCENT 30 % (BEAKER) (test code = 430) MONOCYTES RELATIVE PERCENT 14 % (BEAKER) (test code = 431) EOSINOPHILS RELATIVE PERCENT 12 % (BEAKER) (test code = 432) BASOPHILS RELATIVE PERCENT 1 % (BEAKER) (test code = 437) NEUTROPHILS ABSOLUTE COUNT 1.55 K/ L 1.80-8.00 L (BEAKER) (test code = 670) LYMPHOCYTES ABSOLUTE COUNT 1.09 K/ L 1.48-4.50 L (BEAKER) (test code = 414) MONOCYTES ABSOLUTE COUNT (BEAKER) 0.51 K/ L 0.00-1.30 (test code = 415) EOSINOPHILS ABSOLUTE COUNT 0.44 K/ L 0.00-0.50 (BEAKER) (test code = 416) BASOPHILS ABSOLUTE COUNT (BEAKER) 0.05 K/ L 0.00-0.20 (test code = 417) [id number] 07:33:00 Test Item Value Reference Range Interpretation Comments PHOSPHORUS (BEAKER) (test code = 3.4 mg/dL 2.3-4.7 604) [id number] 07:33:00 Test Item Value Reference Range Interpretation Comments MAGNESIUM (BEAKER) (test code = 1.3 mg/dL 1.6-2.6 L 627) BASIC METABOLIC [id number] 07:33:00 Test Item Value Reference Range Interpretation Comments SODIUM (BEAKER) 141 meq/L 136-145 (test code = 381) POTASSIUM (BEAKER) 3.6 meq/L 3.5-5.1 (test code = 379) CHLORIDE (BEAKER) 105 meq/L 98-107 (test code = 382) CO2 (BEAKER) (test 27 meq/L 22-29 code = 355) BLOOD UREA NITROGEN 11 mg/dL 7-21 (BEAKER) (test code = 354) CREATININE (BEAKER) 0.67 mg/dL 0.57-1.25 (test code = 358) GLUCOSE RANDOM 77 mg/dL 70-105 (BEAKER) (test code = 652) CALCIUM (BEAKER) 9.1 mg/dL 8.4-10.2 (test code = 697) EGFR (BEAKER) (test 110 mL/min/1.73 ESTIM ATED GFR IS code = 1092) sq m NOT ACCURATE CREATININE CLEARANCE IN PREDICTING GLOMERULAR FILTRATION RATE . ESTIMATED GFR I S NOT APPLICABLE FOR DIALYSIS PATIEN TS. LIPID [id number] 07:33:00 Test Item Value Reference Range Interpretation Comments TRIGLYCERIDES (BEAKER) (test code = 49 mg/dL 540) CHOLESTEROL (BEAKER) (test code = 156 mg/dL 631) HDL CHOLESTEROL (BEAKER) (test code 44 mg/dL = 976) LDL CHOLESTEROL CALCULATED (BEAKER) 102 mg/dL (test code = 633) Triglyceride Reference Range: Low Risk <150 Borderline 150-199 High Risk 200- 499 Very High Risk >=500Cholesterol Reference Range: Low Risk <200 Borderline 200-239 High Risk >240HDL Cholesterol Reference Range: Low Risk >=60 High Risk <40LDL Cholesterol Reference Range: Optimal <100 Near Optimal 100-129 Borderline 130-159 High 160-189 Very High >=190HEPATIC FUNCTION [id number] 07:33:00 Test Item Value Reference Range Interpretation Comments TOTAL PROTEIN (BEAKER) (test code = 6.4 gm/dL 6.0-8.3 770) ALBUMIN (BEAKER) (test code = 1145) 3.4 g/dL 3.5-5.0 L BILIRUBIN TOTAL (BEAKER) (test code 0.3 mg/dL 0.2-1.2 = 377) BILIRUBIN DIRECT (BEAKER) (test 0.2 mg/dL 0.1-0.5 code = 706) ALKALINE PHOSPHATASE (BEAKER) (test 60 U/L 40-150 code = 346) AST (SGOT) (BEAKER) (test code = 19 U/L 5-34 353) ALT (SGPT) (BEAKER) (test code = 12 U/L 6-55 347) CREATINE KINASE (CK), TOTAL AND [id number] 07:33:00 Test Item Value Reference Range Interpretation Comments CREATINE KINASE TOTAL (BEAKER) 46 U/L 29-200 (test code = 380) CREATINE KINASE-MB (BEAKER) (test 0.4 ng/mL 0.0-6.6 code = 750) CREATINE KINASE-MB INDEX (BEAKER) 0.9 % (test code = 395) Effective 02/01/2014: CK-MB Reference Range ChangeNew: 0.0-6.6 Previous: 0.0-4.9CK-MB Reference Range:<6.7 Normal6.7-10.0 Borderline>10.0 Abnormal TROPONIN [id number] 07:31:00 Test Item Value Reference Range Interpretation Comments TROPONIN I (BEAKER) (test code = 397) < ng/mL 0.00-0.03 Effective 02/01/2014: Reference Range ChangeNew: 0.00-0.03 Previous 0.00- 0.15Troponin I (TnI) levelsmust be interpreted in the context of the presenting symptoms and the clinical findings. Elevated TnI levels indicate myocardial damage, but are not specific for ischemic heart disease. Elevated TnI levels are seen in patients with other cardiac conditions (including myocarditis and congestive heart failure), and slight TnI elevations occur in patients with other conditions, including sepsis, renal failure, acidosis, acute neurological disease, and persistent tachyarrhythmia.URINALYSIS W/ [id number] 02:36:00 Test Item Value Reference Range Interpretation Comments COLOR (BEAKER) (test code Yellow = 470) CLARITY (BEAKER) (test Clear code = 469) SPECIFIC GRAVITY UA > 1.001-1.035 H (BEAKER) (test code = 468) PH UA (BEAKER) (test code 7.0 5.0-8.0 = 467) PROTEIN UA (BEAKER) (test 20 mg/dL Negative A code = 464) GLUCOSE UA (BEAKER) (test Negative Negative code = 365) KETONES UA (BEAKER) (test 20 mg/dL Negative A code = 371) BILIRUBIN UA (BEAKER) Negative Negative (test code = 462) BLOOD UA (BEAKER) (test Negative Negative code = 461) NITRITE UA (BEAKER) (test Negative Negative code = 465) LEUKOCYTE ESTERASE UA Negative Negative (BEAKER) (test code = 466) UROBILINOGEN UA (BEAKER) 0.2 mg/dL 0.2-1.0 (test code = 463) RBC UA (BEAKER) (test code 3 /HPF = 519) WBC UA (BEAKER) (test code 4 /HPF = 520) MUCUS (BEAKER) (test code Rare = 1574) SOURCE(BEAKER) (test code Urine, Clean Catch = 7265) BASIC METABOLIC [id number] 20:12:00 Test Item Value Reference Range Interpretation Comments SODIUM (BEAKER) 141 meq/L 136-145 (test code = 381) POTASSIUM (BEAKER) 4.0 meq/L 3.5-5.1 (test code = 379) CHLORIDE (BEAKER) 104 meq/L 98-107 (test code = 382) CO2 (BEAKER) (test 26 meq/L 22-29 code = 355) BLOOD UREA NITROGEN 13 mg/dL 7-21 (BEAKER) (test code = 354) CREATININE (BEAKER) 0.73 mg/dL 0.57-1.25 (test code = 358) GLUCOSE RANDOM 76 mg/dL 70-105 (BEAKER) (test code = 652) CALCIUM (BEAKER) 9.9 mg/dL 8.4-10.2 (test code = 697) EGFR (BEAKER) (test mL/min/1.73 INSUFFIC IENT CLINICAL code = 1092) sq m DATA TO CALCULA TE ESTIMATED GFR. [id number] 20:06:00 Test Item Value Reference Range Interpretation Comments LIPASE (BEAKER) (test code = 749) 17 U/L 8-78 [id number] 20:06:00 Test Item Value Reference Range Interpretation Comments AMYLASE (BEAKER) (test code = 349) 101 U/L 25-125 HEPATIC FUNCTION [id number] 20:06:00 Test Item Value Reference Range Interpretation Comments TOTAL PROTEIN (BEAKER) (test code = 7.3 gm/dL 6.0-8.3 770) ALBUMIN (BEAKER) (test code = 1145) 3.8 g/dL 3.5-5.0 BILIRUBIN TOTAL (BEAKER) (test code 0.4 mg/dL 0.2-1.2 = 377) BILIRUBIN DIRECT (BEAKER) (test 0.2 mg/dL 0.1-0.5 code = 706) ALKALINE PHOSPHATASE (BEAKER) (test 68 U/L 40-150 code = 346) AST (SGOT) (BEAKER) (test code = 22 U/L 5-34 353) ALT (SGPT) (BEAKER) (test code = 13 U/L 6-55 347) CBC W/PLT COUNT & AUTO [id number] 19:59:00 Test Item Value Reference Range Interpretation Comments WHITE BLOOD CELL COUNT (BEAKER) 3.7 K/ L 4.0-10.0 L (test code = 775) RED BLOOD CELL COUNT (BEAKER) 4.28 M/ L 4.00-5.00 (test code = 761) HEMOGLOBIN (BEAKER) (test code = 12.5 GM/DL 12.0-15.0 410) HEMATOCRIT (BEAKER) (test code = 37.9 % 36.0-45.0 411) MEAN CORPUSCULAR VOLUME (BEAKER) 88.7 fL 82.0-99.0 (test code = 753) MEAN CORPUSCULAR HEMOGLOBIN 29.1 pg 27.0-33.0 (BEAKER) (test code = 751) MEAN CORPUSCULAR HEMOGLOBIN CONC 32.9 GM/DL 32.0-36.0 (BEAKER) (test code = 752) RED CELL DISTRIBUTION WIDTH 10.9 % 10.3-14.2 (BEAKER) (test code = 412) PLATELET COUNT (BEAKER) (test 190 K/CU MM 150-430 code = 756) MEAN PLATELET VOLUME (BEAKER) 8.0 fL 6.5-10.5 (test code = 754) NUCLEATED RED BLOOD CELLS 0 /100 WBC 0-0 (BEAKER) (test code = 413) NEUTROPHILS RELATIVE PERCENT 33 % (BEAKER) (test code = 429) LYMPHOCYTES RELATIVE PERCENT 40 % (BEAKER) (test code = 430) MONOCYTES RELATIVE PERCENT 12 % (BEAKER) (test code = 431) EOSINOPHILS RELATIVE PERCENT 13 % (BEAKER) (test code = 432) BASOPHILS RELATIVE PERCENT 2 % (BEAKER) (test code = 437) NEUTROPHILS ABSOLUTE COUNT 1.22 K/ L 1.80-8.00 L (BEAKER) (test code = 670) LYMPHOCYTES ABSOLUTE COUNT 1.46 K/ L 1.48-4.50 L (BEAKER) (test code = 414) MONOCYTES ABSOLUTE COUNT (BEAKER) 0.45 K/ L 0.00-1.30 (test code = 415) EOSINOPHILS ABSOLUTE COUNT 0.47 K/ L 0.00-0.50 (BEAKER) (test code = 416) BASOPHILS ABSOLUTE COUNT (BEAKER) 0.08 K/ L 0.00-0.20 (test code = 417) 0.00 Consult Notes Date/Time Note Provider Source 2022-11-06 Associated Order(s): CONSULT PECAN MALLOW DIPPER-ADULT [facility] 11:40:35-00:00 Reason for Consult - Please give recommendations and opinions on family primary decision maker and appropriate options for discharge destination. See previous notes for DC planning and decision makers. Jono Hernandez RN, BSN, ACM-RN [email or web address] [phone] F:[phone] Case Management Cynthia Mcconnell Adult Inpatient [facility] er [phone] Electronically signed by Jono Hernandez RN at 11:41 AM CDT 2022-11-06 Associated Order(s): CONSULT SPEECH Sridevi Kaminski [facility] 10:32:57-00:00 Speech-Language Pathology 11/06/2022 1026 Stroke consult received, bentley rt reviewed. Patient passed primary dysphagia screen and has been ordered a regular textured diet. No s/sx of dysphagia reported by patient or nursing. No dysarthria, aphasia , or cognitive-communication deficits reported by patient or observed by ELECTRICAL REPAIRER. Patient states she is back to baseline. 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 Patient may bene fit from an OP speech therapy referral. No further speech pathology needs indicated at this time; service is signing off. Please re-consult if further needs are indicated. No charge for this screening service d/t no apparent needs/evaluation deferred. Sridevi Kaminski MA, CCC-ELECTRICAL REPAIRER Speech-Language Pathologist Office [phone] Pager: [phone] Associated Order(s): CONSULT ADULT OCCUP ATIONAL THERAPY Adelita Hess OT [facility] 10:21:26-00:00 OT GENERAL EVALUATION Consult received via [employer], Jibe MR reviewed and evaluation completed 11/06/22. Patient referred to occupational therapy for evaluation and treatment per stroke protocol. Patient agreeable to participate in occupational therapy. Discharge Recommendations: Therapy Needs and Potential: Not applicable as no further skilled acute care OT needs at this time. Challenges to Home Transition:None Equipment Recommendations:None PLAN OF CARE: Discharge from OT services Precautions: Weight bearing status: NA General: NA Bracing: N/A Current Occupational Performance and/or Treatmen t: AM-PAC 6 Clicks (Raw Score 0 =Dependent, 24=Independent; Low function Raw Score 0= Dependent, 32=Independent): Raw Score - Daily Activity: 24 T-Scale Score - Daily Activity: 57.54 Feeding: Independent Grooming: Independent UB Dressing: Independent LB Dressing: Independent Toilet Transfer: Independent Toileting Hygiene: Independent Functional Mobility: Independent Patient/caregiver educated o n:ADL training, Fall prevention, Role of OT, and Safety awareness Patient left standing in [place] m with speech entering with call frazier in reach. Please, see full evaluation below for more detail. OT EVALUATION: 62 year old female Admit date: 11/05/2022 Date of onset: 11/05/2022 Admit Diagnosis: Difficulty with speech [R47.9] OT Diagnosis: Impaired BADL independence PMH: History reviewed. No pertinent past medical history. PSH: History reviewed. No pertinent surgical his tory. PAIN: Denies pain before and after session. OCCUPATIONAL ROLES/HOME ENVIRONMENT: Home environment: Lives with spouse and Upstairs apartment . Bathroom access: Yes Bathroom setup: Combo Occupation(s): Unemployed Function prior to admission: Community ambulatio n and Independent with IADLs Suspected ischemic or hemorraghic stroke patient : Yes, defer to PT Equipment prior to admission: None PERFORMANCE SKILLS/FACTORS: UE Muscle Tone: bilateral WNL UE ROM: bilateral AROM WFL UE Strength: EMILY UE WFL Hand dominance: right Dexterity/Coordination: bilateral Intact Endurance - Sitting: Good Standing: Good Sitting Balance - Static: Good Dynamic: Good Standing: Balance - Static Good Dynamic: Good Dizziness: No Skin Integrity: No breakdown noted Sensation: Patient denies numbness and tinging. Oral Motor: slight L upper lip droop (minimal) Communication: Able to verbalize needs Yes Other : N/A Vision: WFL Yes Other: N/A Hearing: good; no issues reported COGNITION: Orientation: person, place, date/time, and situa tion Follows Commands: 1-step Yes Multi-step Yes Inco nsistencies No Safety Awareness/Judgment: Good PROBLEM LIST: Decreased independence with ADL REHAB POTENTIAL/PROGNOSIS: NA as no further ther apy needs PATIENT/FAMILY GOALS: To take a shower. TREATMENT/INTERVENTION PLAN: Discharge from OT PATIENT-FAMILY TEACHING Patient provided with prefer red teaching of verbal information on Fall prevention. Shows readiness to learn. Verbal instruction teaching provided. Individual is able to read and verbalizes understanding of teaching provided. Kenzie HessOTR [phone] Total Timed Treatment Codes: 5 Min Total Treatment Time: 10 Min Patient Complexity Level Mod erate - An occupational therapy evaluation of moderate complexity was completed using the above tests and measures. The following information was obtained: An occupational pr ofile and medical and therap y history, including an expanded review of medical and/or therapy records and additional review of physical, cognitive, or psychosocial history related to current functional performance, Various standar dized and non-standardized assessments were used to identify at least 3-5 performance deficits related to physical, cognitive, or psychosocial skills that result in activity limitations and/or participa tion restrictions, and Clinical decision making of moderate analytic complexity, which includes an analysis of the occupational profile, analysis of data from detailed assess ment(s), and consideration o f several treatment options. Patient may present with comorbidities that affect occupational performance. Minimal to moderate modification of tasks or assistance (e.g., physi gokul or verbal) with assessme nt(s) is necessary to enable patient to complete evaluation component. Electronically signed by Adelita Hess OT at 10:26 AM CDT 2022-11-06 Associated Order(s): CONSULT ADULT PHYSI GOK[facility] TH[facility]APY [facility]00 PT Patient agreeable to working with physical therapy. Patient met semi reclined in bed. Recommend nursing staff util ize 1 person assist Independent to safely assist patient with mobility out of the bed or chair. PHYSICAL THERAPY EVALUATION Consult received, chart revi ewed and evaluation complete this date. Patient is referred to PT for evaluation and treatment. Patient is a 62 year old female who presents to hospital for Difficulty with speech [R47.9] . Left upper lip droopiness, resolved Slurring of speech, resolved Left facial numbness, resolved TIA, ABCD 2 score : 3 Discharge Recommendations: Therapy Needs and Potential: Patient without any skilled PT needs at this formerly [facility]. Challenges to Home Transition: environmental barriers Equipment recommendations: no device Current Functional Status and/or Treatment: AM-PAC 6 Clicks (Raw Score 0 =Dependent, 24=Independent; Low function Raw Score 0= Dependent, 32=Independent): Raw Score - Basic Mobility : 24 T-Scale Score - Basic Mobility : 57.68 Bed Mobility: Rolling: Independent Supine-sit: Independent Sitting balance Excellent Sit to supine: Independent Patient able to get in and out of bed with ease and without difficulty. Transfers: sit-stand: Supervision/ Independent Stand to sit: Supervision/ Independent using no device Stand pivot transfer: Supervision/ Independent Static/dynamic standing balance: Good Patient able to transfer on all surfaces without difficulty. Ambulation: Assisted patient with ambul ation as follows: 2MWT 600 feet using no device and Supervision/ Independent . Patient presenting with Step-to gait pattern. Instructed patient in direct ional changes and head movements in all planes during gait trial resulting in no instability and no LOB. Stairs: assisted patient wit h gait up and down 13 steps using right side rail with Supervision/ Independent . Patient able to negotiate the stairs with recipr ocal walking pattern. Therapeutic exercise: Provided education and couns elimary on importance of engaging on Aerobic exercises and weight reduction program. Patient states that she was trying to start something but when they move to [place], [place] it was so hard for her to get motivated and she feels depressed at times. Depression screening was don e and she said no to all questions and she is not trying to harm herself. Therapist provided recommend ations on how to commit to exercise program, making self accountable to it and start her own discharge planner. Patient was able to return demonstrate with fair carryover. Functional Outcome Measures: (Values within the past 12 hours) Tinetti Gait Score- # / 12 Initiation of gait: No hesitancy Step length: On both sides, swing foot passes st ance foot Foot clearance: Both feet completely clear floor Step Symmetry: Step lengths equal Step continuity: Steps appear continuous Path: Straight without AD Trunk: No sway, no flexion, no use of arms, no u se of AD Walking: Heels almost touching Tinetti Gait Score: 12 Tinetti Gait Score Interpretation: >= 7 - Low ri sk for falls TINETTI BALANCE SCORE- # / 16 Sitting balance: Steady, safe Arises: Able without using arms Attempts to Rise: Able to rise, 1 attempt Immediate standing balance ( first 5 sec): Steady without walker or other support Standing Balance: Narrow stance without support Nudged 3 times *: Steady Eyes closed*: Steady Turning 360 degrees: Continuous steps and steady Sitting down: Safe smooth Tinetti Balance Score: 16 Tinetti Balance Interpretation: >= 9 - Low risk for falls 2MWT please see gait section for details. After session, patient sitti ng edge of bed. Call button provided. Communicated with NOHEMY Chance PLAN OF CARE: PT signs off. See below for complete details. Admit Date: 11/05/2022 Hospital Diagnosis:Difficulty with speech [R47.9 ] PT Diagnosis: Difficulty wal roselia, Weakness, Malaise/fatigue, Pain, and Abnormality of gait and balance Weight Bearing Precaution: WBAT General Precautions: PPE used:Gloves, General, F all,IV Bracing/Cast present or required:N/A PMH: History reviewed. No pertinent past medical history. PSH: History reviewed. No pertinent surgical his tory. Prior Living Situation: live s with their spouse and in a apartment, 1 flight of Stairs with right side rail, able to negotiate Yes DME: No device Prior level of Mobility: com munity ambulation, house hold ambulation, ambulates with no device Suspected ischemic or hemorr aghic stroke:Yes, Pre-Stroke Modified Mcdowell Score: 0 - No symptoms Subjective: C/O Facial weakness but states it is getting better now. Patient/Family Goals: To go home Patient/Family verbalizes understanding of condi tion: Yes PAIN: denies pain before and after session COMMUNICATION Primary Language: Gabonese Able to Verbalize needs: Yes Vision:glasses Hearing:good; no issues reported ORIENTATION/COGNITION: Oriented to: person, place, date/time, and situa tion Awake: Yes Alert: Yes Dizzy: No Follows Commands: Yes 1-Step Yes Multi-Step No Inconsistent: No NEUROLOGICAL Light Touch: within functional limits bilateral LE Heel to holman: WFL Tone: WNL BALANCE: Sitting: Static: Excellent Dynamic: Good Standing: Static: Good Dynamic: Good RANGE OF MOTION: within functional limits bilate ral LE STRENGTH: 5/5 (Normal), bilateral LE ENDURANCE: Fair, Room air SKIN INTEGRITY: intact, PROBLEM LIST: Decline in gait and Decreased endu jessie ASSESSMENT: Patient is a 62 year old female seen secondary to the above listed diagnosis. No further inpatient PT needs identified at this time. Rehabilitation Potential: fair Goals: The following goals a re to maximize independence and safety with functional mobility to eventually return to prior living situation and prior functional status. Defer as no PT needs. Treatment Plan: Evaluation o nly, Discharge from PT , Gait training, Gait training on stairs, Therapeutic exercise, Transfer training, Balance training, Bed mobility training, Equipment needs assessment, Safety education, patient/c aregiver education, Pain management, and Neuromuscular Re-Education PATIENT EDUCATION: Patient p rovided with preferred teaching of verbal information and demonstration on role of PT, plan of care, DC plans. Shows readiness to learn. Verbal instruction and Demonstration teaching provided. Rayna nicholas is able to read and verbalizes understanding of teaching provided and accurately returns demonstration of skill. Total Time Tx Codes in Minutes: 25 min Total Treatment Time in Minutes: 35 min Gian Strickland PT, DPT [facility] Physical Therapy Rehabilitation Services Notes Date/Time Note Provider Source 2022-11-06 Formatting of this note might be differe nt from the original. PN-PSYCHIATRY [facility] 12:32:54-00:00 Problem: Discharge Planning Goal: Able to perform ADL 11/06/2022 1232 by Anjana Isbell RN Outcome: Resolved 11/06/2022 0936 by Anjana Isbell RN Outcome: Progressing as expected Goal: Knowledge of medication management 11/06/2022 1232 by Anjana Isbell RN Outcome: Resolved 11/06/2022 0936 by Anjana Isbell RN Outcome: Progressing as expected Goal: Knowledge of need for follow-up care 11/06/2022 1232 by Anjana Isbell RN Outcome: Resolved 11/06/2022 0936 by Anjana Isbell RN Outcome: Progressing as expected Goal: Knowledge of personal stroke risk factors 11/06/2022 1232 by Anjana Isbell RN Outcome: Resolved 11/06/2022 0936 by Anjana Isbell RN Outcome: Progressing as expected Goal: Knowledge of stroke warning signs 11/06/2022 1232 by Anjana Isbell RN Outcome: Resolved 11/06/2022 0936 by Anjana Isbell RN Outcome: Progressing as expected Problem: Aspiration, Risk of Goal: Absence of aspiration 11/06/2022 1232 by Anjana Isbell RN Outcome: Resolved 11/06/2022 0936 by Anjana Isbell RN Outcome: Progressing as expected Problem: Bowel Function - Altered Goal: Normal bowel habits 11/06/2022 1232 by Anjana Isbell RN Outcome: Resolved 11/06/2022 0936 by Anjana Isbell RN Outcome: Progressing as expected Problem: Falls, Risk of Goal: Absence of falls 11/06/2022 1232 by Anjana Isbell RN Outcome: Resolved 11/06/2022 0936 by Anjana Isbell RN Outcome: Progressing as expected Problem: Pain Goal: Control of pain at or below patient's docu mented comfort goal 11/06/2022 1232 by Anjana Isbell RN Outcome: Resolved 11/06/2022 0936 by Anjana Isbell RN Outcome: Progressing as expected Goal: Reduction in pain sensation 11/06/2022 1232 by Anjana Isbell RN Outcome: Resolved 11/06/2022 0936 by Anjana Isbell RN Outcome: Progressing as expected 2022-11-06 [facility] 09:37:00-00:00 Problem: Discharge Planning Goal: Able to perform ADL Outcome: Progressing as expected Goal: Knowledge of medication management Outcome: Progressing as expected Goal: Knowledge of need for follow-up care Outcome: Progressing as expected Goal: Knowledge of personal stroke risk factors Outcome: Progressing as expected Goal: Knowledge of stroke warning signs Outcome: Progressing as expected Problem: Aspiration, Risk of Goal: Absence of aspiration Outcome: Progressing as expected Problem: Bowel Function - Altered Goal: Normal bowel habits Outcome: Progressing as expected Problem: Falls, Risk of Goal: Absence of falls Outcome: Progressing as expected Problem: Pain Goal: Control of pain at or below patient's docu mented comfort goal Outcome: Progressing as expected Goal: Reduction in pain sensation Outcome: Progressing as expected 2022-11-06 Formatting of this note might be differe nt from the original. Sampson Estrada RN [facility] 02:28:36-00:00 Problem: Discharge Planning Goal: Able to perform ADL Outcome: Progressing as expected Goal: Knowledge of medication management Outcome: Progressing as expected Goal: Knowledge of need for follow-up care Outcome: Progressing as expected Goal: Knowledge of personal stroke risk factors Outcome: Progressing as expected Goal: Knowledge of stroke warning signs Outcome: Progressing as expected Problem: Aspiration, Risk of Goal: Absence of aspiration Outcome: Progressing as expected Problem: Bowel Function - Altered Goal: Normal bowel habits Outcome: Progressing as expected Problem: Falls, Risk of Goal: Absence of falls Outcome: Progressing as expected Problem: Pain Goal: Control of pain at or below patient's docu mented comfort goal Outcome: Progressing as expected Goal: Reduction in pain sensation Outcome: Progressing as expected T 2022-11-05 Formatting of this note might be differe nt from the original. Alea Schneider RN [facility] 19:07:30-00:00 Nurse Report Report given to NOHEMY Styles. Chief complaint, assessment findings, infusion verify and orders reviewed. Plan of care discussed with both nurses. Alea Schneider RN Electronically signed by Alea Schneider RN a t 11/05/2022 7:07 PM CDT 2022-11-05 [facility] 18:47:33-00:00 Patient transferred to [facility] 1121 for diagnosis of Difficulty with speech Patient agrees to transfer/a dmit plan and verbalized understanding of plan of care, family aware of plan Patient awake alert, oriente d, resp reg unlabored, skin w/d PIV patent, no s/s infiltration noted, No adverse reaction to medications given while i n ED. Report given to [facility] personnel Electronically signed by Alea Schneider RN a t 11/05/2022 6:48 PM CDT 2022-11-05 Formatting of this note might be differe nt from the original. Zaina Smalls PCT [facility] 18:18:36-00:00 Spoke with BILLY Garcia ETA 15 min 2022-11-05 [facility] 16:12:00-00:00 Stroke Symptoms Note Pt placed immediately into r oom for stroke symptoms, last seen normal: 0200 am 11/05/2022. Stroke activation complete, Jessica Ching at bedside. EKG done at now. Patient taken to CT at 1536 with RN at bedsid e. Patient placed on continu ous cardiac, blood pressure and oxygen saturation monitoring. PIV placed, labs drawn. Please see neuro assessment for details. Will continue to monitor. Alea Schneider RN Electronically signed by Alea Schneider RN a t 11/05/2022 4:54 PM CDT 2022-11-05 [facility] 15:54:00-00:00 Critical Care Transport Patient transported to TR 11 with RN. Continuous cardiac monitoring and serial vital signs monitored by RN. Alea Schneider RN Electronically signed by Alea Schneider RN a t 11/05/2022 4:13 PM CDT 2022-11-05 [facility] 15:36:00-00:00 Critical Care Transport Patient transported to [facility] an with RN and boner meat. Continuous cardiac monitoring and serial vital signs monitored by RN. Alea Schneider RN Electronically signed by Alea Schneider RN a t 11/05/2022 4:12 PM CDT 2022-11-05 Formatting of this note might be differe nt from the original. 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 States "when I close my eyes it feels like the room is spinning". Also states that she fee ls like her face is tingling and that this morning she felt like her face was drooping. No facial drooping, neuro deficits noted in triage. Reports history of stroke in 2018.
[2022-11-12] MEDS ORDERED: ETOMIDATE 20 MG/10 ML VIAL IV ONE (17:19)
--- NOTE | 2022-11-12 18:03 | RAD REPORT ---
EXAM DESCRIPTION: RAD - Ankle Right 2 View - 11/12/2022 5:56 pm CLINICAL HISTORY: DEFORMITY COMPARISON: No comparisons FINDINGS: There is near dislocation seen of the ankle. There is a fracture of the medial malleolus, lateral malleolus and posterior malleolus seen. Small plantar calcaneal spur.
[2022-11-12 18:06] LABS: Hematocrit 37.5 % (36.0-45.0); MCV 91.7 fL (80-100); MPV 9.1 fL (7.6-11.3); Platelets 179 thou/uL (152-406); RBC Red Blood Cell Count 4.09 M/uL (3.86-4.86)
[2022-11-12 18:10] LABS: Protime INR 1.19
[2022-11-12] MEDS ORDERED: ONDANSETRON 4 MG/2 ML VIAL ONE ×2 (18:10→19:59)
--- NOTE | 2022-11-12 18:17 | ER ---
Nurse's Notes [facility] Name: Kerry Diaz Age: 62 yrs Sex: Female : 1960 Arrival Date: 11/12/2022 Time: 16:53 Bed 7 Private MD: Diagnosis: Open right tib-fib fracture, fall Presentation: 11/12 17:01 Chief complaint: Patient states: she missed the last step of the stairs leaving her ap3 apartment and injured her right ankle. patient complains of pain 10/10 on the pain scale. Coronavirus screen: At this time, the client does not indicate any symptoms associated with coronavirus-19. Ebola Screen: No symptoms or risks identified at this time. Initial Sepsis Screen: Does the patient meet any 2 criteria? No. Patient's initial sepsis screen is negative. Does the patient have a suspected source of infection? No. Patient's initial sepsis screen is negative. Risk Assessment: Do you want to hurt yourself or someone else? Patient reports no desire to harm self or others. Onset of symptoms was November 12, 2022. 17:01 Method Of Arrival: EMS: [facility] ap3 17:01 Acuity: THEA 2 ap3 17:05 Care prior to arrival: Medication(s) given: fentanyl 150mcgs IV initiated. 20 GA, in ap3 the left antecubital area. Triage Assessment: 17:03 General: Appears uncomfortable, Behavior is calm, cooperative, appropriate for age. ap3 Pain: Complains of pain in right foot, right ankle, right Achilles and anterior aspect of right ankle Pain currently is 10 out of 10 on a pain scale. Pain began suddenly. Neuro: Level of Consciousness is awake, alert, obeys commands, Oriented to person, place, time, situation. Cardiovascular: Patient's skin is warm and dry. Respiratory: Airway is patent Respiratory effort is even, unlabored, Respiratory pattern is regular, symmetrical. Derm:. Musculoskeletal: Bony deformity noted of right foot, right ankle, right Achilles and anterior aspect of right ankle. Historical: - Allergies: 17:03 PENICILLINS; ap3 - PMHx: 17:03 pacemaker; Hypothyroidism; Hypertensive disorder; ap3 - Immunization history:: Client reports receiving the 2nd dose of the Covid vaccine, Last tetanus immunization: unknown. - Social history:: Smoking status: Patient denies any tobacco usage or history of. Screenin:04 [facility] ED Fall Risk Assessment (Adult) History of falling in the last 3 months, ap3 including since admission Yes- single mechanical fall (1 pt) Confusion or Disorientation No (0 pts) Intoxicated or Sedated No (0 pts) Impaired Gait Yes (1 pt). Abuse screen: Denies threats or abuse. Nutritional screening: No deficits noted. Tuberculosis screening: No symptoms or risk factors identified. Assessment: 17:39 Reassessment: See triage assessment. ld1 17:39 Reassessment: No changes from previously documented assessment. Patient and/or family ld1 updated on plan of care and expected duration. Pain level reassessed. 18:51 Reassessment: Keaton Bautista - - [phone]. ld1 Vital Signs: 17:01 BP 153 / 77; Pulse 60; Resp 18; Temp 97.8; Pulse Ox 97% on R/A; Weight 126.1 kg; Height ap3 6 ft. 0 in. ; Pain 10/10; 17:38 BP 148 / 77; Pulse 60; Resp 18; Pulse Ox 100% on R/A; ld1 18:11 BP 167 / 79; Pulse 60; Pulse Ox 100% on R/A; ap3 18:35 BP 157 / 78; Pulse 60; Pulse Ox 100% on R/A; ap3 19:16 BP 148 / 88; Pulse 60; Resp 16 S; Pulse Ox 100% on 2 lpm NC; jw7 17:01 Body Mass Index 37.70 (126.10 kg, 182.88 cm) ap3 17:01 Pain Scale: Adult ap3 ED Course: 16:55 Patient arrived in ED. ms3 16:55 Devonte Montana DO is Attending Physician. ms3 16:57 Attending Physician role handed off by Devonte Montana DO sp3 16:57 Filomena Singh MD is Attending Physician. sp3 17:03 Triage completed. ap3 17:04 Arm band placed on right wrist. ap3 17:04 Patient has correct armband on for positive identification. Bed in low position. Call ap3 light in reach. Side rails up X2. Adult w/ patient. pupil personnel worker on. Pulse ox on. NIBP on. 17:58 Ankle Right 2 View XRAY In Process Unspecified. EDMS 18:10 Jennifer Ortiz, RN is Primary Nurse. ap3 18:10 Assist provider with fracture care of anterior aspect of right ankle and right Achilles ap3 and right ankle Fracture is open. Obvious deformity is noted. Set up for procedure. Performed by Filomena Singh MD Reduced with physical manipulation. Immobilized with preformed splint, Patient tolerated well. 18:24 Ankle Left 2 View XRAY In Process Unspecified. EDMS 19:00 Initiated transfer with Denise at [facility]. rv1 19:46 Provided Education on: need for transfer. as6 19:46 Patient transferred, IV remains in place. as6 Administered Medications: 18:10 Drug: Etomidate IVP 10 mg Route: IVP; Site: left antecubital; ap3 18:17 Follow up: Response: No adverse reaction ap3 18:10 Drug: Ondansetron IVP 4 mg Route: IVP; Site: left antecubital; ap3 18:17 Follow up: Response: No adverse reaction; Nausea is decreased ap3 18:23 Drug: Clindamycin IVPB 600 mg Route: IVPB; Infused Over: 30 mins; Site: left ap3 antecubital; 18:52 Follow up: IV Status: Completed infusion ap3 18:23 Drug: HYDROmorphone IVP 1 mg Route: IVP; Site: left antecubital; ap3 18:50 Follow up: Response: No adverse reaction; Pain is decreased ap3 19:50 Drug: Ondansetron IVP 4 mg Route: IVP; Site: left antecubital; as6 19:50 Follow up: Response: No adverse reaction as6 Medication: 19:46 VIS not applicable for this client. as6 Outcome: 18:17 ER care complete, transfer ordered by . sp3 19:44 Transferred by ground EMS to [facility], Transfer form completed. X-rays sent as6 w/ patient. 19:44 Condition: stable 19:44 Instructed on the need for transfer. 19:47 Patient left the ED. as6 19:51 Patient left the ED. as6 Signatures: Dispatcher [employer] EDMS Jennifer Ortiz RN RN ap3 Devonte Montana, DO ms3 Sonia Montana RN RN ld1 Filomena Singh MD MD sp3 Samy Bhagat RN RN as6 Sil Herrera RN RN jw7 Nataly Douglas [facility]
[2022-11-12 18:18] LABS: Potassium 4.3 mEq/L (3.5-5.1)
--- NOTE | 2022-11-12 18:18 | EDPHYS ---
Physician Documentation [facility] Name: Kerry Diaz Age: 62 yrs Sex: Female : 1960 Arrival Date: 11/12/2022 Time: 16:53 Bed 7 Private MD: ED Physician Filomena Singh HPI: 11/12 17:09 This 62 yrs old Black Female presents to ER via EMS with complaints of Ankle Injury. sp3 17:09 62-year-old female with history of CHF, pacemaker, hypertension, hypothyroidism sp3 presents to the ED via EMS for right ankle injury secondary to mechanical fall on the last set of steps at her home. No prior injury to that ankle reported. Patient's last meal was 12 noon. She denies any other secondary injuries including knee, hip, pelvis, head, LOC, neck pain, back pain, chest pain, any other pain in any other region. Ankle is deformed to the right counterclockwise direction with laceration in the skin with likely open fracture. No bony fragments were noted to be reported by EMS.. Historical: - Allergies: 17:03 PENICILLINS; ap3 - PMHx: 17:03 pacemaker; Hypothyroidism; Hypertensive disorder; ap3 - Immunization history:: Client reports receiving the 2nd dose of the Covid vaccine, Last tetanus immunization: unknown. - Social history:: Smoking status: Patient denies any tobacco usage or history of. ROS: 17:12 Constitutional: Negative for fever, chills, and weight loss, Eyes: Negative for injury, sp3 pain, redness, and discharge, ENT: Negative for injury, pain, and discharge, Neck: Negative for injury, pain, and swelling, Cardiovascular: Negative for chest pain, palpitations, and edema, Respiratory: Negative for shortness of breath, cough, wheezing, and pleuritic chest pain, Abdomen/GI: Negative for abdominal pain, nausea, vomiting, diarrhea, and constipation, Back: Negative for injury and pain, Skin: Negative for injury, rash, and discoloration, Psych: Negative for depression, anxiety, suicide ideation, homicidal ideation, and hallucinations, Allergy/Immunology: Negative for hives, rash, and allergies, Endocrine: Negative for neck swelling, polydipsia, polyuria, polyphagia, and marked weight changes. 17:12 All other systems are negative. Exam: 17:12 Constitutional: This is a well developed, well nourished patient who is awake, alert, sp3 and in no acute distress. Head/Face: Normocephalic, atraumatic. Eyes: Pupils equal round and reactive to light, extra-ocular motions intact. Lids and lashes normal. Conjunctiva and sclera are non-icteric and not injected. Cornea within normal limits. Periorbital areas with no swelling, redness, or edema. Neck: Trachea midline, no thyromegaly or masses palpated, and no cervical lymphadenopathy. Supple, full range of motion without nuchal rigidity, or vertebral point tenderness. No Meningismus. Chest/axilla: Normal chest wall appearance and motion. Nontender with no deformity. No lesions are appreciated. Cardiovascular: Regular rate and rhythm with a normal S1 and S2. No gallops, murmurs, or rubs. Normal PMI, no JVD. No pulse deficits. Respiratory: Lungs have equal breath sounds bilaterally, clear to auscultation and percussion. No rales, rhonchi or wheezes noted. No increased work of breathing, no retractions or nasal flaring. Abdomen/GI: Soft, non-tender, with normal bowel sounds. No distension or tympany. No guarding or rebound. No evidence of tenderness throughout. Back: No spinal tenderness. No costovertebral tenderness. Full range of motion. Skin: Warm, dry with normal turgor. Normal color with no rashes, no lesions, and no evidence of cellulitis. Neuro: Awake and alert, GCS 15, oriented to person, place, time, and situation. Cranial nerves II-XII grossly intact. Motor strength 5/5 in all extremities. Sensory grossly intact. Cerebellar exam normal. Normal gait. Psych: Awake, alert, with orientation to person, place and time. Behavior, mood, and affect are within normal limits. 17:12 Musculoskeletal/extremity: Likely right ankle fracture with externally rotated counterclockwise ankle. Distal pulses present along with normal cap refill. Lacerations present medially on the right side likely resulting from open fracture. . Vital Signs: 17:01 BP 153 / 77; Pulse 60; Resp 18; Temp 97.8; Pulse Ox 97% on R/A; Weight 126.1 kg; Height ap3 6 ft. 0 in. ; Pain 10/10; 17:38 BP 148 / 77; Pulse 60; Resp 18; Pulse Ox 100% on R/A; ld1 18:11 BP 167 / 79; Pulse 60; Pulse Ox 100% on R/A; ap3 18:35 BP 157 / 78; Pulse 60; Pulse Ox 100% on R/A; ap3 19:16 BP 148 / 88; Pulse 60; Resp 16 S; Pulse Ox 100% on 2 lpm NC; jw7 17:01 Body Mass Index 37.70 (126.10 kg, 182.88 cm) ap3 17:01 Pain Scale: Adult ap3 MDM: 16:55 Patient medically screened. ms3 17:13 ED course: 62-year-old female with externally rotated right open ankle fracture. X-rays sp3 pending and we will be reducing it with etomidate prior to transfer secondary to new orthopedic care being available here. Receiving facility is yet to be determined but likely [facility]. I am not suspecting secondary injury, vascular injury, or any other concerning pathology at this time.. 18:12 Data reviewed: vital signs, lab test result(s), radiologic studies. ED course: Patient sp3 sedated with etomidate 10 mg IV x1. Patient was on monitor, pulse oxygenation and tolerated procedure well. She did have minor postprocedural emesis which were treated with Zofran IV. No concern for aspiration is present. Ankle was successfully reduced manually by me with adequate clinical alignment. Posterior and sugar-tong splint were applied and post reduction x-rays are pending. Once confirmed, we will transfer her to [facility]. Antibiotics will also be given.. 18:52 ED course: Postreduction x-ray demonstrates adequate reduction of now identified sp3 trimalleolar fracture. Clindamycin has been ordered and transfer has been initiated.. 19:01 ED course: Patient accepted by orthopedics without conference to the emergency sp3 department there. Open trimalleolar fracture was communicated as a diagnosis.. 11/12 17:04 Order name: CBC w/o diff; Complete Time: 18:48 sp3 11/12 17:04 Order name: BMP; Complete Time: 18:48 sp3 11/12 17:04 Order name: PT-INR; Complete Time: 18:16 sp3 11/12 17:02 Order name: Ankle Right 2 View XRAY; Complete Time: 18:16 sp3 11/12 18:00 Order name: Ankle Left 2 View XRAY; Complete Time: 18:48 sp3 11/12 17:02 Order name: NPO; Complete Time: 17:05 sp3 11/12 17:04 Order name: IV Saline Lock; Complete Time: 17:05 sp3 11/12 17:04 Order name: Monitor; Complete Time: 17:05 sp3 11/12 17:04 Order name: Oxygen Per Protocol; Complete Time: 17:05 sp3 11/12 17:04 Order name: Pulse Ox Monitoring; Complete Time: 17:05 sp3 11/12 17:04 Order name: Suction; Complete Time: 17:05 sp3 Administered Medications: 18:10 Drug: Etomidate IVP 10 mg Route: IVP; Site: left antecubital; ap3 18:17 Follow up: Response: No adverse reaction ap3 18:10 Drug: Ondansetron IVP 4 mg Route: IVP; Site: left antecubital; ap3 18:17 Follow up: Response: No adverse reaction; Nausea is decreased ap3 18:23 Drug: Clindamycin IVPB 600 mg Route: IVPB; Infused Over: 30 mins; Site: left ap3 antecubital; 18:52 Follow up: IV Status: Completed infusion ap3 18:23 Drug: HYDROmorphone IVP 1 mg Route: IVP; Site: left antecubital; ap3 18:50 Follow up: Response: No adverse reaction; Pain is decreased ap3 19:50 Drug: Ondansetron IVP 4 mg Route: IVP; Site: left antecubital; as6 19:50 Follow up: Response: No adverse reaction as6 Disposition Summary: 11/12/22 18:17 Transfer Ordered Transfer Location: [facility] sp3 Reason: Higher level of care sp3 Condition: Stable sp3 Problem: new sp3 Symptoms: are unchanged sp3 Accepting Physician: [facility](11/12/22 19:51) as6 Diagnosis - Open right tib-fib fracture, fall sp3 Forms: - Medication Reconciliation Form sp3 - SBAR form sp3 Signatures: Dispatcher [employer] EDJennifer Waters RN RN ap3 Devonte Montana DO DO ms3 Filomena Singh MD MD sp3 Samy Bhagat RN RN as6 Corrections: (The following items were deleted from the chart) 19:47 18:17 [facility] sp3 as6 19:51 19:47 [facility] as6 as6
[2022-11-12] MEDS ORDERED: HYDROMORPHONE HCL 1 MG/ML INJ ONE (18:27)
[2022-11-12] MEDS ORDERED: CLINDAMYCIN 600MG/D5W 50 ML IV ONE (18:27)
--- NOTE | 2022-11-12 18:40 | RAD REPORT ---
EXAM DESCRIPTION: RAD - Ankle Right 2 View - 11/12/2022 6:22 pm CLINICAL HISTORY: post reduction COMPARISON: Ankle Right 2 View dated 11/12/2022 FINDINGS: Plaster splint material obscures bone detail. Previously noted ankle dislocation has large ly been reduced. Trimalleolar fracture noted. Large calcaneal spurs.
[2022-11-12 19:55] VITALS: TEMP 97.8
[2022-11-12 19:56] VITALS: O2SAT 100
[2022-11-12 20:00] VITALS: BP 148/88
== END 2022-11-12 19:51 | disposition short-term general hospital (02) ==
LOC: ER 16:53
PROC: 0QSJ35Z Reposition Right Fibula with External Fixation Device, Percutaneous Approach (ICD-10-PCS; principal; 2022-11-12)
PROC: 0QSG35Z Reposition Right Tibia with External Fixation Device, Percutaneous Approach (ICD-10-PCS; 2022-11-12)
DX: S82.851B Displaced trimalleolar fracture of right lower leg, initial encounter for open fracture type I or II (principal); Z88.0 Allergy status to penicillin
CPT/HCPCS: 80048; 36415; 85610; 85027; 73600 ×2; 27818; J1170; J2405 ×2

== ENCOUNTER 2024-10-22 11:00 | Emergency (ER) | payer OTHER ==
--- NOTE | 2024-10-22 12:08 | RAD REPORT ---
EXAM: Knee Right 3 View INDICATION: PAIN COMPARISON: None FINDINGS: No acute fracture. No significant knee effusion. Mild medial compartment narrowing. Mild medial greater than lateral joint spurring. Other: N/A IMPRESSION: No acute osseous abnormality involving the imaged knee.
--- NOTE | 2024-10-22 12:09 | RAD REPORT ---
EXAM: Knee Left 3 View INDICATION: PAIN COMPARISON: None FINDINGS: No acute fracture. No significant knee effusion. Mild medial and lateral compartment narrowing and spurring. Other: N/A IMPRESSION: No acute osseous abnormality involving the imaged knee.
--- NOTE | 2024-10-22 12:40 | ER ---
Nurse's Notes [facility] Name: Kerry Diaz Age: 64 yrs Sex: Female : 1960 Arrival Date: 10/22/2024 Time: 11:00 Bed 11 Private MD: Diagnosis: Pain in right knee;Pain in left knee Presentation: 10/22 11:12 Chief complaint: Patient states: BILATERAL KNEE PAIN, R>L, AFTER FALL x2 DAYS. bp Coronavirus screen: At this time, the client does not indicate any symptoms associated with coronavirus-19. Ebola Screen: No symptoms or risks identified at this time. Initial Sepsis Screen: Does the patient meet any 2 criteria? No. Patient's initial sepsis screen is negative. Does the patient have a suspected source of infection? No. Patient's initial sepsis screen is negative. Risk Assessment: Do you want to hurt yourself or someone else? Patient reports no desire to harm self or others. Onset of symptoms is unknown. 11:12 Method Of Arrival: Wheelchair bp 11:12 Acuity: THEA 3 bp Triage Assessment: 11:12 General: Appears in no apparent distress. uncomfortable, Behavior is calm, cooperative, bp appropriate for age. Pain: Complains of pain in right knee and left knee. EENT: No deficits noted. Neuro: No deficits noted. Cardiovascular: No deficits noted. Respiratory: No deficits noted. GI: No signs and/or symptoms were reported involving the gastrointestinal system. : No signs and/or symptoms were reported regarding the genitourinary system. Derm: No deficits noted. Musculoskeletal: No deficits noted. Historical: - Allergies: 11: PENICILLINS; bp - Home Meds: 11:08 atorvastatin 40 mg oral tablet 1 tab daily [Active]; Lasix 40 mg oral tablet 1 tab bp daily [Active]; Farxiga 10 mg oral tablet 1 tab daily [Active]; spironolactone 25 mg Oral tablet 1 tab [Active]; amiodarone 200 mg Oral tablet 1 tab 2 times per day [Active]; Eliquis 5 mg oral tablet [Active]; Coreg 25 mg Oral tablet 1 tab 2 times per day [Active]; Entresto 97-103 mg oral tablet 1 tab 2 times per day [Active]; - PMHx: 11:08 Hypertensive disorder; Hypothyroidism; Pacemaker; bp - Immunization history:: Adult Immunizations up to date. - Infectious Disease History:: Denies. - Social history:: Smoking status: Patient denies any tobacco usage or history of. Screenin:10 [facility] ED Fall Risk Assessment (Adult) History of falling in the last 3 months, aa5 including since admission Yes- single mechanical fall (1 pt) Confusion or Disorientation No (0 pts) Intoxicated or Sedated No (0 pts) Impaired Gait No (0 pts) Mobility Assist Device Used No (0 pt) Altered Elimination No (0 pt) Score/Fall Risk Level 0 - 2 = Low Risk Oriented to surroundings, Maintained a safe environment, Educated pt \T\ family on fall prevention, incl call for assistance when getting out of bed, Assessed \T\ reinforced patient's understanding of fall precautions. Abuse screen: Denies threats or abuse. Nutritional screening: No deficits noted. Tuberculosis screening: No symptoms or risk factors identified. Assessment: 12:10 Reassessment: Pt back from radiology . aa5 12:10 General: Appears comfortable, Behavior is calm, cooperative. Pain: Complains of pain in aa5 right knee and left knee. Neuro: Level of Consciousness is awake, alert, obeys commands, Oriented to person, place, time, situation. Cardiovascular: Patient's skin is warm and dry. Respiratory: Airway is patent Respiratory effort is even, unlabored, Respiratory pattern is regular, symmetrical. GI: No signs and/or symptoms were reported involving the gastrointestinal system. : No signs and/or symptoms were reported regarding the genitourinary system. EENT: No signs and/or symptoms were reported regarding the EENT system. Derm: Skin is dry, Skin is normal, Skin temperature is warm. Musculoskeletal: Range of motion: intact in all extremities, Reports since neeru knees, greater to right knee. . 12:45 Neuro: Level of Consciousness is awake, alert, obeys commands, Oriented to person, aa5 place, time, situation. Respiratory: Airway is patent Respiratory effort is even, unlabored, Respiratory pattern is regular, symmetrical. Derm: Skin is dry, Skin is normal, Skin temperature is warm. Vital Signs: 11:12 BP 98 / 65; Pulse 70; Resp 16; Temp 98; Pulse Ox 97% ; bp 12:45 BP 102 / 64; Pulse 60; Resp 18 S; Pulse Ox 99% on R/A; aa5 ED Course: 11:05 Patient arrived in ED. gl 11:06 [facility]C [facility] 11:06 Cem Dahl MD is Attending Physician. dr5 11:08 Arm band placed on. bp 11:13 Triage completed. bp 11:59 Gayathri Rudd, RN is Primary Nurse. aa5 12:05 Knee Left 3 View XRAY In Process Unspecified. EDMS 12:05 Knee Right 3 View XRAY In Process Unspecified. EDMS 12:10 Patient has correct armband on for positive identification. Bed in low position. Call aa5 light in reach. Side rails up X 1. 12:40 Keenan Kan MD is Referral Physician. dr5 12:40 Ted Butcher MD is Referral Physician. dr5 12:40 Abran Olivera MD is Referral Physician. dr5 13:00 Patient did not have IV access during this emergency room visit. aa5 13:00 Oz wrap to right knee. aa5 13:14 No provider procedures requiring assistance completed. aa5 Administered Medications: No medications were administered Medication: 13:14 VIS not applicable for this client. aa5 Outcome: 12:40 Discharge ordered by MD. dr5 13:00 Discharged to home ambulatory, aa5 13:00 Condition: stable 13:00 Discharge instructions given to patient, Instructed on discharge instructions, follow up and referral plans. medication usage, Demonstrated understanding of instructions, follow-up care, medications, Prescriptions given X 1, 13:03 Patient left the ED. aa5 Signatures: Dispatcher [employer] EDVA Gayathri Rudd, RN RN aa5 Quinten Davis RN RN bp Rhodes, Dustin, FNP-C SIGNAL WORKER-Cdr5 Deepa Tracey, Reg Reg gl Corrections: (The following items were deleted from the chart) 13:18 12:10 Derm: Skin is pink, warm \T\ dry. aa5 aa5
--- NOTE | 2024-10-22 12:40 | EDPHYS ---
Physician Documentation [facility] Name: Kerry Diaz Age: 64 yrs Sex: Female : 1960 Arrival Date: 10/22/2024 Time: 11:00 Bed 11 Private MD: ED Physician Cem Dahl HPI: 10/22 11:27 This 64 yrs old Black Female presents to ER via Wheelchair with complaints of Knee Pain.dr5 11:27 Onset: The symptoms/episode began/occurred 2 week(s) ago. Patient is a 64-year-old dr5 female with history of hypertension, hypothyroidism, pacemaker/defibrillator coming in with bilateral knee pain after falling from missing a step 2 weeks ago. Patient reports that the right knee is worse than left. Patient ambulated upon arrival.. Historical: - Allergies: 11:08 PENICILLINS; bp - Home Meds: : atorvastatin 40 mg oral tablet 1 tab daily [Active]; Lasix 40 mg oral tablet 1 tab bp daily [Active]; Farxiga 10 mg oral tablet 1 tab daily [Active]; spironolactone 25 mg Oral tablet 1 tab [Active]; amiodarone 200 mg Oral tablet 1 tab 2 times per day [Active]; Eliquis 5 mg oral tablet [Active]; Coreg 25 mg Oral tablet 1 tab 2 times per day [Active]; Entresto 97-103 mg oral tablet 1 tab 2 times per day [Active]; - PMHx: 11:08 Hypertensive disorder; Hypothyroidism; Pacemaker; bp - Immunization history:: Adult Immunizations up to date. - Infectious Disease History:: Denies. - Social history:: Smoking status: Patient denies any tobacco usage or history of. ROS: 11:27 Constitutional: as per hpi dr5 Exam: 11:27 Constitutional: This is a well developed, well nourished patient who is awake, alert, dr5 and in no acute distress. Head/Face: Normocephalic, atraumatic. Eyes: Pupils equal round and reactive to light, extra-ocular motions intact. Lids and lashes normal. Conjunctiva and sclera are non-icteric and not injected. Cornea within normal limits. Periorbital areas with no swelling, redness, or edema. Neck: Trachea midline, no thyromegaly or masses palpated, and no cervical lymphadenopathy. Supple, full range of motion without nuchal rigidity, or vertebral point tenderness. No Meningismus. Chest/axilla: Normal chest wall appearance and motion. Nontender with no deformity. No lesions are appreciated. Cardiovascular: Regular rate and rhythm with a normal S1 and S2. Normal PMI, no JVD. No pulse deficits. Respiratory: Lungs have equal breath sounds bilaterally, clear to auscultation. No rales, rhonchi or wheezes noted. No increased work of breathing, no retractions or nasal flaring. Back: No spinal tenderness. No costovertebral tenderness. Full range of motion. Skin: Warm, dry with normal turgor. Normal color with no rashes, no lesions, and no evidence of cellulitis. Neuro: Awake and alert, GCS 15, oriented to person, place, time, and situation. Cranial nerves II-XII grossly intact. Motor strength 5/5 in all extremities. Sensory grossly intact. Cerebellar exam normal. Normal gait. 11:27 Musculoskeletal/extremity: Extremities: grossly normal except: noted in the right knee: swelling, tenderness, noted in the left knee: swelling, ROM: no acute changes, intact in all extremities, Circulation is intact in all extremities. Sensation intact. Vital Signs: 11:12 BP 98 / 65; Pulse 70; Resp 16; Temp 98; Pulse Ox 97% ; bp 12:45 BP 102 / 64; Pulse 60; Resp 18 S; Pulse Ox 99% on R/A; aa5 Procedures: 12:45 Splinting: Splint applied to right knee using oz wrap, applied by nurse. Examined by dr5 hi, post splint application: neurovascular intact, 2+ distal pulses palpable, brisk capillary refill noted, Patient tolerated well. MDM: 11:06 Medical Screening Exam initiated dr5 12:43 Differential diagnosis: abrasion, contusion, fracture, sprain, strain. Data reviewed: [facility] vital signs, nurses notes. 12:44 Consideration of Admission/Observation Escalation of care including dr5 admission/observation considered. Consider escalation if patient found to have abnormal knee exam.. I considered the following discharge prescriptions or medication management in the emergency department I discussed and recommended Over The Counter medications, Medications were administered in the Emergency Department. See MAR. Care significantly affected by the following chronic conditions: Hypertension, Hypothyroidism, pacemaker, defibrillator. Care significantly affected by the following Social Determinants of Health: Poor access to healthcare and/or lack of insurance, Poor access to transportation, Problems related to employment. Counseling: I had a detailed discussion with the patient and/or guardian regarding the historical points, exam findings, and any diagnostic results supporting the discharge/admit diagnosis, the presence of at least one elevated blood pressure reading (>120/80) during this emergency department visit, radiology results, the need for outpatient follow up, for definitive care, a orthopedic surgeon, to return to the emergency department if symptoms worsen or persist or if there are any questions or concerns that arise at home. Response to treatment: the patient's symptoms have mildly improved after treatment. Special discussion: I discussed with the patient/guardian in detail that at this point there is no indication for admission to the hospital. It is understood, however, that if the symptoms persist or worsen the patient needs to return immediately for re-evaluation. Based on the presenting symptoms and work-up in the emergency department, I discussed in detail the need to arrange with the PCP or specialist an outpatient procedure, Possible MRI if orthopedics deems necessary. Based on the history and exam findings, there is no indication for further emergent testing or inpatient evaluation. I discussed with the patient/guardian the need to see the orthopedic surgeon for further evaluation of the symptoms. ED course: Oz wrap applied in ER. Recommended RICE therapy. Patient was given multiple names of orthopedic doctors to follow-up with. CD was printed and given to patient. I also printed out her x-ray report and handed her that as well. All questions answered. Strict ER precautions given.. 10/22 11:15 Order name: Knee Left 3 View XRAY; Complete Time: 12:09 bp 10/22 11:15 Order name: Knee Right 3 View XRAY; Complete Time: 12:09 bp 10/22 12:37 Order name: Oz Wrap: Right Knee Please; Complete Time: 13:03 dr5 Administered Medications: No medications were administered Disposition: 13:52 Co-signature as Attending Physician, Cem Dahl MD I agree with the assessment and jr plan of care. Disposition Summary: 10/22/24 12:40 Discharge Ordered Notes: Location: Home dr5 Condition: Stable dr5 Diagnosis - Pain in right knee dr5 - Pain in left knee dr5 Followup: dr5 - With: Emergency Department - When: As needed - Reason: Worsening of condition Followup: dr5 - With: Private Physician - When: 1 - 2 days - Reason: Recheck today's complaints, Continuance of care, Re-evaluation by your physician Followup: dr5 - With: Keenan Kan MD - When: 1 week - Reason: Recheck today's complaints, Continuance of care, Re-evaluation by your physician Followup: dr5 - With: Ted Butcher MD - When: 1 week - Reason: Recheck today's complaints, Continuance of care, Re-evaluation by your physician Followup: dr5 - With: Abran Olivera MD - When: 1 week - Reason: Recheck today's complaints, Continuance of care, Re-evaluation by your physician Discharge Instructions: - Discharge Summary Sheet dr5 - RICE Therapy for Routine Care of Injuries dr5 - Acute Knee Pain, Adult dr5 Forms: - Medication Reconciliation Form dr5 - Patient Portal Instructions dr5 - Leadership Thank You Letter dr5 Prescriptions: - Tramadol 50 mg Oral Tablet - take 1 tablet ORAL route every 8 hours as needed; 12 tablet; Refills: 0, dr5 Product Selection Permitted Signatures: Dispatcher [employer] Quinten Grier RN RN bp Rosillo, Jose, MD MD [id number] Robbie Moscoso, CASINO ASSISTANT MANAGER-C CASINO ASSISTANT MANAGER-Cdr5
[2024-10-22 13:58] VITALS: TEMP 98
[2024-10-22 14:00] VITALS: BP 102/64; O2SAT 99
== END 2024-10-22 13:03 | disposition home or self-care (01) ==
LOC: ER 11:00
DX: M25.561 Pain in right knee (principal); M25.562 Pain in left knee; W19.XXXA Unspecified fall, initial encounter; Z95.810 Presence of automatic (implantable) cardiac defibrillator; Z79.01 Long term (current) use of anticoagulants
CPT/HCPCS: 99283